=== PATIENT | female | born 1945 | race Caucasian/White ===

== ENCOUNTER 2019-08-23 13:30 | Outpatient (CLI) | payer OTHER, SELFPAY ==
--- NOTE | ~2019-08-23 | CT_ITS ---
EXAMINATION: CT lung screening DATE: 08/23/2019 14:25 INDICATION: Personal history of tobacco dependence, current smoker with 78 pack year history, history of left breast cancer TECHNIQUE: Computed tomography (CT) of the chest was performed without intravenous contrast. The dose -length product (DLP) was 65.09 mGy-cm. Automated exposure control and iterative reconstruction techn [employer] were employed. COMPARISON: None FINDINGS: There is mild emphysema. A few patchy nodular and airspace opacities of the right upper lob e are likely infectious or inflammatory. There is a 3 mm nodule of the left lower lobe on image 55. T here is a 10 mm subsolid nodule of the left upper lobe on image 57. There is no pleural effusion or p neumothorax. There are changes of left mastectomy. No pathologically enlarged thoracic lymph nodes ar e identified. The heart size is normal. There is calcified coronary artery atherosclerosis. A small s liding hiatal hernia is noted. There is severe thoracic spondylosis. IMPRESSION: 1. Lung-RADS category 2: Benign appearance or behavior. Continue annual screening with noncontrast lo w-dose chest CT in 12 months. Reviewed, dictated and finalized at location A. IMPRESSION: 1. Lung-RADS category 2: Benign appearance or behavior. Continue annual screeni ng with noncontrast low-dose chest CT in 12 months.
--- NOTE | ~2019-08-23 | US_ITS ---
EXAMINATION: US art doppler w press LE BI DATE: 08/23/2019 15:24 CDT INDICATION: Peripheral vascular disease. History of breast cancer. TECHNIQUE: Segmental pressures and plethysmographic and Doppler waveforms of the brachial and lower e xtremity arteries were obtained. COMPARISON: None. FINDINGS: Right and left brachial artery pressures of 158 mm Hg. Left arm blood pressure not performed due to h istory of breast cancer. The right high-thigh pressure index is 0.97 (normal > 1.2). The right ankle-brachial index (KRISTOFER) is 0 .83 (normal >= 0.9-1.0). The right great toe-brachial index (TBI) is 0.63 (normal >= 0.60). The right lower extremity segmental pressure gradients are slightly increased below the femoral artery (normal gradients <= 20-30 mmHg between adjacent levels on the same leg or the same levels on the two legs). Arterial Doppler waveforms are biphasic. The left high-thigh pressure index is 1.08. The left KRISTOFER is 0.89. The left TBI is 0.53. The left lowe r extremity segmental pressure gradients are normal. Arterial Doppler waveforms are biphasic. IMPRESSION: 1. Mildly decreased high thigh pressure index, ankle brachial indices and toe brachial indices, consi stent with mild inflow and peripheral arterial disease. Reviewed, dictated and finalized at location A. IMPRESSION: 1. Mildly decreased high thigh pressure index, ankle brachial indices and toe b rachial indices, consistent with mild inflow and peripheral arterial disease.
--- NOTE | ~2019-08-23 | MM_ITS ---
EXAMINATION: MM screening pito RT w nathan HISTORY: Screening right mammogram, history of left mastectomy TECHNIQUE: Craniocaudal and mediolateral oblique 3-D tomosynthesis images were obtained and synthetic 2-D images were generated. CAD analysis was submitted and interpreted. COMPARISON: No prior mammogram is available for comparison at this institution. BREAST PARENCHYMAL COMPOSITION: There are scattered areas of fibroglandular density. FINDINGS: A focal asymmetry is present in the middle third of the outer breast 8 cm from the nipple. IMPRESSION: 1. Right breast focal asymmetry. 2. Additional mammographic views and possible breast ultrasound are recommended. BI-RADS Category 0: Incomplete: Needs additional imaging evaluation. Reviewed, dictated and finalized at location A. IMPRESSION: 1. Right breast focal asymmetry. 2. Additional mammographic views and possible breast ultrasound are recommended . BI-RADS Category 0: Incomplete: Needs additional imaging evaluation.
[2019-08-23 14:58] LABS: Alanine Aminotransferase 13 U/L (4-35); Albumin Level 4.4 g/dL (3.5-5.1); Alkaline Phosphatase 110 U/L (38-126); Aspartate Amino Transferase 23 U/L (14-36); Bilirubin,Total 0.3 mg/dL (0.2-1.3); Blood Urea Nitrogen 12 mg/dL (7-17); Calcium 9.5 mg/dL (8.4-10.2); Carbon Dioxide 26 mmol/L (22-30); Chloride 105 mmol/L (98-107); Cholesterol 264 mg/dL (0-200); Estimated Glomerular Filt Rate > 60; Glucose 115 mg/dL (65-105); HDL Direct 73 mg/dL; Potassium 4.7 mmol/L (3.4-5.0); Sodium 138 mmol/L (137-145); Triglycerides 176 mg/dL (<150)
[2019-08-23 15:08] LABS: LDL Cholesterol Direct 133 mg/dL
== END 2019-08-23 13:31 | disposition home or self-care (01) ==
PROVIDERS: PCP Emergency Medicine; Visit Provider Emergency Medicine
DX: Z12.31 Encounter for screening mammogram for malignant neoplasm of breast (principal); R53.83 Other fatigue; E78.5 Hyperlipidemia, unspecified; I73.9 Peripheral vascular disease, unspecified; Z87.891 Personal history of nicotine dependence
CPT/HCPCS: 36415; 77063; 77067; 80053; 80061; 84443; 93923; G0297

== ENCOUNTER 2019-09-20 12:25 | Outpatient (CLI) | payer OTHER, SELFPAY ==
--- NOTE | ~2019-09-20 | MMUS_ITS ---
EXAMINATION: MM diagnostic mammo unilat RT, US breast RT limited HISTORY: Focal asymmetry in middle third of outer right breast 8 cm from nipple was reported on 2019 bilateral digital screening mammogram TECHNIQUE: Additional 3-D tomosynthesis images of the right breast were performed and synthetic 2-D i mages were generated. CAD analysis was submitted and interpreted. High resolution upper outer quadran t right breast ultrasound was performed. COMPARISON: 08/23/2019 bilateral digital screening mammogram FINDINGS: MAMMOGRAPHIC FINDINGS: No definite mass is evident. There are benign appearing calcifications. ULTRASOUND: There is no evidence of focal abnormal solid or cystic lesion or suspicious shadowing in the upper ou ter quadrant of the right breast. IMPRESSION: 1. No mammographic evidence of malignancy 2. Routine annual mammographic screening is recommended. BI-RADS Category 2: Benign finding(s). Reviewed, dictated and finalized at location A. IMPRESSION: 1. No mammographic evidence of malignancy 2. Routine annual mammographic screening is recommended. BI-RADS Category 2: Benign finding(s).
== END 2019-09-20 12:26 | disposition home or self-care (01) ==
PROVIDERS: PCP Emergency Medicine; Visit Provider Emergency Medicine
DX: N64.89 Other specified disorders of breast (principal)
CPT/HCPCS: 76642; 77065

== ENCOUNTER 2020-01-16 15:38 | Outpatient (CLI) | payer OTHER, SELFPAY ==
[2020-01-16 16:13] LABS: Alanine Aminotransferase 13 U/L (4-35); Albumin Level 4.3 g/dL (3.5-5.1); Alkaline Phosphatase 86 U/L (38-126); Anion Gap 7 mmol/L (8-16); Aspartate Amino Transferase 23 U/L (14-36); Bilirubin,Total 0.5 mg/dL (0.2-1.3); Blood Urea Nitrogen 14 mg/dL (7-17); Calcium 9.7 mg/dL (8.4-10.2); Carbon Dioxide 26 mmol/L (22-30); Chloride 103 mmol/L (98-107); Estimated Glomerular Filt Rate > 60; Glucose 116 mg/dL (65-105); Potassium 4.7 mmol/L (3.4-5.0); Sodium 136 mmol/L (137-145)
[2020-01-16 19:16] LABS: Hemoglobin A1C 5.5 % (<5.7)
== END 2020-01-16 15:39 | disposition home or self-care (01) ==
PROVIDERS: PCP Emergency Medicine; Visit Provider Emergency Medicine
DX: E78.2 Mixed hyperlipidemia (principal); E11.9 Type 2 diabetes mellitus without complications
CPT/HCPCS: 36415; 80053; 83036

== ENCOUNTER 2020-08-06 15:09 | Outpatient (CLI) | payer OTHER, SELFPAY ==
[2020-08-06 15:46] LABS: Alanine Aminotransferase 14 U/L (4-35); Albumin Level 4.1 g/dL (3.5-5.1); Alkaline Phosphatase 83 U/L (38-126); Anion Gap 3 mmol/L (8-16); Aspartate Amino Transferase 30 U/L (14-36); Bilirubin,Total 0.4 mg/dL (0.2-1.3); Blood Urea Nitrogen 13 mg/dL (7-17); Calcium 9.6 mg/dL (8.4-10.2); Carbon Dioxide 28 mmol/L (22-30); Chloride 105 mmol/L (98-107); Cholesterol 222 mg/dL (0-200); Estimated Glomerular Filt Rate > 60; Glucose 109 mg/dL (65-105); HDL Direct 77 mg/dL; Potassium 4.6 mmol/L (3.4-5.0); Sodium 136 mmol/L (137-145); Triglycerides 125 mg/dL (<150)
[2020-08-06 15:58] LABS: LDL Cholesterol Direct 96 mg/dL
[2020-08-06 17:00] LABS: Hemoglobin A1C 5.6 % (<5.7)
== END 2020-08-06 15:10 | disposition home or self-care (01) ==
PROVIDERS: PCP Emergency Medicine; Visit Provider Emergency Medicine
DX: E78.5 Hyperlipidemia, unspecified (principal); E11.9 Type 2 diabetes mellitus without complications
CPT/HCPCS: 36415; 80053; 80061; 83036

== ENCOUNTER 2021-09-03 13:10 | Outpatient (CLI) | payer OTHER, SELFPAY ==
--- NOTE | ~2021-09-03 | MM_ITS ---
EXAMINATION: MM screening pito BI w nathan HISTORY: Screening right mammogram, history of left mastectomy TECHNIQUE: Craniocaudal and mediolateral oblique 3-D tomosynthesis images were obtained and synthetic 2-D images were generated. CAD analysis was submitted and interpreted. COMPARISON: 08/31/2019, 08/23/2019 BREAST PARENCHYMAL COMPOSITION: There are scattered areas of fibroglandular density. FINDINGS: Architectural distortion in the outer right breast is stable and likely related to prior ex cisional biopsy. There is no suspicious mass, calcification, or architectural distortion to suggest m alignancy. There has been no suspicious interval change. IMPRESSION: 1. No mammographic evidence of malignancy. 2. Recommend routine screening mammography in one year. BI-RADS Category 2: Benign finding(s). Reviewed, dictated and finalized at location A.
[2021-09-03 13:48] LABS: Alanine Aminotransferase 16 U/L (6-35); Albumin Level 4.2 g/dL (3.5-5.1); Alkaline Phosphatase 97 U/L (38-126); Anion Gap 3 mmol/L (8-16); Aspartate Amino Transferase 29 U/L (14-36); Bilirubin,Total 0.3 mg/dL (0.2-1.3); Blood Urea Nitrogen 9 mg/dL (7-17); Calcium 9.1 mg/dL (8.4-10.2); Carbon Dioxide 29 mmol/L (22-30); Chloride 102 mmol/L (98-107); Cholesterol 228 mg/dL (0-200); Estimated Glomerular Filt Rate > 60; Glucose 115 mg/dL (65-110); HDL Direct 66 mg/dL; Potassium 4.6 mmol/L (3.4-5.0); Sodium 134 mmol/L (137-145); Triglycerides 207 mg/dL (<150)
[2021-09-03 13:59] LABS: LDL Cholesterol Direct 83 mg/dL
[2021-09-03 14:30] LABS: Vitamin D 25 Hydroxy 16.2 ng/mL
[2021-09-03 14:56] LABS: Hemoglobin A1C 5.5 % (<5.7)
== END 2021-09-03 13:11 | disposition home or self-care (01) ==
PROVIDERS: PCP Emergency Medicine; Visit Provider Emergency Medicine
DX: Z12.31 Encounter for screening mammogram for malignant neoplasm of breast (principal); Z13.220 Encounter for screening for lipoid disorders; E55.9 Vitamin D deficiency, unspecified; R73.9 Hyperglycemia, unspecified; E78.5 Hyperlipidemia, unspecified
CPT/HCPCS: 36415; 77063; 77067; 80053; 80061; 82306; 83036

== ENCOUNTER 2021-12-03 12:48 | Outpatient (CLI) | payer OTHER, SELFPAY ==
--- NOTE | ~2021-12-03 | CT_ITS ---
EXAMINATION: CT abdomen pelvis wo con DATE: 12/03/2021 13:18 INDICATION: Unspecified abdominal pain TECHNIQUE: Computed tomography (CT) of the abdomen and pelvis was performed without intravenous contr ast. The dose-length product (DLP) was 290.83 mGy-cm. Automated exposure control and iterative recons truction technique were employed. COMPARISON: None FINDINGS: Minimal dependent atelectasis is present in the lung bases. The heart size is normal. There is an 8 mm cyst in the left hepatic lobe. The spleen, pancreas, gallbladder, and right adrenal gland are normal. There is a 1.8 cm adenoma of the left adrenal gland. The kidneys are unremarkable. There is calcified atherosclerosis of the aorta and many of the other arteries. No pathologically enlarged abdominal or pelvic lymph nodes are identified. There is no free intraperitoneal gas or evidence of bowel obstruction. The appendix is normal. There is moderate lumbar spondylosis. There is a tiny midl ine epigastric hernia containing fat. There is also a tiny umbilical hernia containing fat. IMPRESSION: 1. Small epigastric and umbilical hernias containing fat. Reviewed, dictated and finalized at location B.
== END 2021-12-03 12:49 | disposition home or self-care (01) ==
PROVIDERS: PCP Emergency Medicine; Visit Provider Emergency Medicine
DX: R10.9 Unspecified abdominal pain (principal); K42.9 Umbilical hernia without obstruction or gangrene
CPT/HCPCS: 74176

== ENCOUNTER 2022-03-11 11:51 | Outpatient (CLI) | payer OTHER, SELFPAY ==
--- NOTE | ~2022-03-11 | DEXA_ITS ---
Bone Density Report Name: ANSON MILLER Age: 76 Sex: Female Ethnicity: White Date of : 1945 Indication: postmenopausal; screening for osteoporosis; height loss; cancer; Referring Provider: JULIOCESAR NOONAN Study: Bone densitometry was performed. Exam Date: March 11, 2022 Accession number: [id number] Bone Density: Region BMD T-score Z-score Classification AP Spine(L1-L4) 0.742 -2.8 -0.3 Osteoporosis Femoral Neck (Left) 0.513 -3.0 -0.9 Osteoporosis Total Hip (Left) 0.696 -2.0 -0.2 Osteopenia Femoral Neck (Right) 0.470 -3.4 -1.3 Osteoporosis Total Hip (Right) 0.658 -2.3 -0.5 Osteopenia Total Hip Mean 0.677 -2.2 -0.4 Osteopenia World Health Organization criteria for BMD impression classify patients as: Normal (T-score at or above -1.0), Osteopenia (T-score between -1.0 and -2.5), or Osteoporosis (T-score at or below -2.5). 10-year Fracture Risk: FRAX not reported because: Some T-score for Spine Total or Hip Total or Femoral Neck at or below -2.5 Clinical Information Provided by Patient: Smokes Has 3 or more alcoholic drinks per day Has used the following medications: Vitamin D Has the following medical conditions: Cancer Patient maximum height was 61.5 Menopause Age: 49 No regular weight bearing exercise Onset of menses at age 14 Number of children 3 Impression: The patient has osteoporosis, based on the Right Femoral Neck T-score. The patient has risk factors, including: smoking, excessive alcohol use. Discussion: INCREASED RISK OF FRACTURE. BONE DENSITY IS UNDESIRABLY LOW AT ONE OR MORE SKELETAL SITES, CONSISTENT WITH POSTMENOPAUSAL OSTEOPOROSIS. This patient's lowest T-score meets the World Health Organization's (WHO) criteria for osteoporosis at one or more sites (T-score -2.5 or below). In untreated patients, the risk of osteoporotic fracture increases approximately two-fold for each 1.0 SD decrease in T-score. Low bone density is not the only risk factor for fracture; also consider factors such as patient's age, frailty or poor health, risk of falling, risk of injury, previous osteoporotic fracture, family history of osteoporosis, cigarette smoking, low body weight, etc. Not everyone with low bone mineral density has osteoporosis; osteomalacia and other metabolic bone disorders should also be considered. Patients who have osteoporosis should be evaluated for specific diseases and conditions (secondary causes) that may cause or contribute to bone loss. The [place] [employer]ocrin[employer] (AACE) and National Osteoporosis Foundation (NOF) recommend pharmacologic intervention for all postmenopausal women whose T-score is in this range. The patient should follow a healthful lifestyle (good nutrition with adequate calcium and vitamin D, and appropriate weight-bearing e
== END 2022-03-11 11:52 | disposition home or self-care (01) ==
PROVIDERS: PCP Emergency Medicine; Visit Provider Emergency Medicine
DX: Z78.0 Asymptomatic menopausal state (principal); M81.0 Age-related osteoporosis without current pathological fracture; M85.852 Other specified disorders of bone density and structure, left thigh; M85.851 Other specified disorders of bone density and structure, right thigh
CPT/HCPCS: 77080

== ENCOUNTER 2023-03-03 11:41 | Outpatient (CLI) | payer OTHER, SELFPAY ==
[2023-03-03 12:14] LABS: Alanine Aminotransferase 14 U/L (6-35); Albumin Level 4.3 g/dL (3.5-5.1); Alkaline Phosphatase 109 U/L (38-126); Anion Gap 5 mmol/L (8-16); Aspartate Amino Transferase 27 U/L (14-36); Bilirubin,Total 0.7 mg/dL (0.2-1.3); Blood Urea Nitrogen 11 mg/dL (7-17); Calcium 9.4 mg/dL (8.4-10.2); Carbon Dioxide 27 mmol/L (22-30); Chloride 104 mmol/L (98-107); Cholesterol 219 mg/dL (0-200); Estimated Glomerular Filt Rate > 60; Glucose 107 mg/dL (65-110); HDL Direct 70 mg/dL; Potassium 4.5 mmol/L (3.4-5.0); Sodium 136 mmol/L (137-145); Triglycerides 143 mg/dL (<150)
[2023-03-03 12:25] LABS: LDL Cholesterol Direct 93 mg/dL
== END 2023-03-03 11:42 | disposition home or self-care (01) ==
LOC: ANHLAB 11:44
PROVIDERS: PCP Emergency Medicine; Visit Provider Emergency Medicine
DX: E78.5 Hyperlipidemia, unspecified (principal)
CPT/HCPCS: 36415; 80053; 80061

== ENCOUNTER 2023-07-21 13:26 | Outpatient (CLI) | payer OTHER, SELFPAY ==
--- NOTE | ~2023-07-21 | MM_ITS ---
EXAMINATION: MM screening pito RT w nathan HISTORY: Screening mammogram TECHNIQUE: Craniocaudal and mediolateral oblique 3-D tomosynthesis images were obtained and synthetic 2-D images were generated. CAD analysis was submitted and interpreted. COMPARISON: 09/03/2021) screening mammogram 09/20/2019 diagnostic right mammogram and Limited right breast ultrasound 08/23/2019) screening mammogram BREAST PARENCHYMAL COMPOSITION: There are scattered areas of fibroglandular density. FINDINGS: History of left mastectomy in 1993. Scattered microcalcifications. There is focal irregular increased density in the outer mid upper right breast. Diagnostic right mammogram and right breast u ltrasound examination are recommended.. IMPRESSION: 1. Status post left mastectomy for breast cancer. Irregular increased density in the upper outer righ t breast 2. Diagnostic right mammogram and right breast ultrasound examination recommended BI-RADS Category 0: Incomplete: Needs additional imaging evaluation. Reviewed, dictated and finalized at location A. IMPRESSION: 1. Status post left mastectomy for breast cancer. Irregular increased density i n the upper outer right breast 2. Diagnostic right mammogram and right breast ultrasound examination recommend ed BI-RADS Category 0: Incomplete: Needs additional imaging evaluation.
== END 2023-07-21 13:27 | disposition home or self-care (01) ==
LOC: ANHIMG 13:27
PROVIDERS: PCP Emergency Medicine; Visit Provider Emergency Medicine
DX: Z12.31 Encounter for screening mammogram for malignant neoplasm of breast (principal); R92.8 Other abnormal and inconclusive findings on diagnostic imaging of breast
CPT/HCPCS: 77063; 77067

== ENCOUNTER 2023-08-16 12:46 | Outpatient (CLI) | payer OTHER, SELFPAY ==
--- NOTE | ~2023-08-16 | MMUS_ITS ---
EXAMINATION: MM diagnostic pito RT w nathan, US breast RT limited HISTORY: Follow-up architectural distortion of the right breast TECHNIQUE: Additional 3-D tomosynthesis images of the right breast were performed and synthetic 2-D i mages were generated. CAD analysis was submitted and interpreted. High resolution Limited right breas t ultrasound was performed. COMPARISON: Comparison to multiple prior studies sequentially, with oldest reviewed study dated 08/22. BREAST PARENCHYMAL COMPOSITION: Not dense: There are scattered areas of fibroglandular density. FINDINGS: MAMMOGRAPHIC FINDINGS: There is focal architectural distortion with developing clustered indeterminate calcifications associ ated with the area of asymmetry. This is located in the mid outer aspect of the right breast. ULTRASOUND: Limited right breast ultrasound: At 9:00, 8 cm from the nipple there is an irregular shaped ill-defin ed 7 mm mass with posterior shadowing. No internal vascularity. IMPRESSION: 1. Ill-defined irregular shaped 7 mm hypoechoic mass of the right breast at 9:00, 8 cm from the nippl e, likely corresponding to the architectural distortion seen on mammography. 2. Ultrasound-guided right breast biopsy recommended. BI-RADS category 4, suspicious findings. Reviewed, dictated and finalized at location A. IMPRESSION: 1. Ill-defined irregular shaped 7 mm hypoechoic mass of the right breast at 9:0 0, 8 cm from the nipple, likely corresponding to the architectural distortion s een on mammography. 2. Ultrasound-guided right breast biopsy recommended. BI-RADS category 4, suspicious findings.
== END 2023-08-16 12:47 | disposition home or self-care (01) ==
LOC: ANHIMG 12:51
PROVIDERS: PCP Emergency Medicine; Visit Provider Emergency Medicine
DX: R92.8 Other abnormal and inconclusive findings on diagnostic imaging of breast (principal); R10.11 Right upper quadrant pain
CPT/HCPCS: 76642; 77061; 77065; G0279

== ENCOUNTER 2023-09-06 09:40 | Outpatient (CLI) | payer OTHER, SELFPAY ==
--- NOTE | ~2023-09-06 | MMUS_ITS ---
US breast biopsy RT w image, MM post biopsy diagnostic RT EXAMINATION: US GUIDED NEEDLE BIOPSY WITH VACUUM ASSISTANCE DATE: 09/06/2023 11:41 CDT INDICATION: Right breast mass seen on recent examination. Ultrasound-guided core biopsy is requested to evaluate for malignancy. TECHNIQUE AND FINDINGS: The risks and potential benefits of the procedure were discussed with the patient, and written inform ed consent was obtained. After sterile preparation of the right breast, 1% lidocaine was utilized fo r local anesthesia. 1% lidocaine with epinephrine was used for deep anesthesia. A 10G vacuum-assisted biopsy gun needle was advanced through to the outer edge of the region of inter est from a lateral approach utilizing sonographic guidance. A total of 5 tissue core samples were ob tained through the lesion. An Inrad tissue marker clip was then placed at the biopsy site. Hemostasi s was achieved. The patient tolerated procedure well and there was no evidence of immediate complication. The patien t was given verbal instructions partly is from the department. Right breast mammograms to document t issue marker clip placement. The tissue samples were submitted to surgical pathology for histologic a nalysis. IMPRESSION: 1. Successful ultrasound-guided vacuum-assisted biopsy of right breast mass with tissue marker place ment. Please refer to pathology report for histologic analysis. Reviewed, dictated and finalized at location B. IMPRESSION: 1. Successful ultrasound-guided vacuum-assisted biopsy of right breast mass wi th tissue marker placement. Please refer to pathology report for histologic shawn lysis.
== END 2023-09-06 09:41 | disposition home or self-care (01) ==
PROVIDERS: PCP Emergency Medicine; Visit Provider Surgery
DX: R92.8 Other abnormal and inconclusive findings on diagnostic imaging of breast (principal); N63.10 Unspecified lump in the right breast, unspecified quadrant; Z85.3 Personal history of malignant neoplasm of breast; C50.911 Malignant neoplasm of unspecified site of right female breast
CPT/HCPCS: 19083; 77065; 88305; 88360; 88365; A4648

== ENCOUNTER 2023-09-15 12:14 | Outpatient (CLI) | payer OTHER, SELFPAY ==
--- NOTE | ~2023-09-15 | US_ITS ---
US breast LT complete 09/15/2023 13:11 Indication: History of left mastectomy for malignant neoplasm. Procedure: High-resolution Limited ultrasound of the left chest wall and axilla Comparison: Screening mammogram dated 09/03/2021 Findings: Along the left lateral chest there is a small oval hypoechoic structure without internal va scularity or posterior features measuring 6 mm, likely benign. No other masses are identified. Impression: 1: Oval hypoechoic parallel oriented 6 mm mass left lateral chest wall, likely benign. Follow-up ultr asound in 6 months recommended. BI-RADS CATEGORY 3-PROBABLY BENIGN FINDING RECOMMENDATION: 6 month follow-up Limited left chest wall ultrasound. Reviewed, dictated and finalized at location B. Impression: 1: Oval hypoechoic parallel oriented 6 mm mass left lateral chest wall, likely benign. Follow-up ultrasound in 6 months recommended. BI-RADS CATEGORY 3-PROBABLY BENIGN FINDING RECOMMENDATION: 6 month follow-up Limited left chest wall ultrasound.
== END 2023-09-15 12:15 | disposition home or self-care (01) ==
LOC: ANHIMG 12:15
PROVIDERS: PCP Emergency Medicine; Visit Provider Surgery
DX: Z85.3 Personal history of malignant neoplasm of breast (principal); R92.8 Other abnormal and inconclusive findings on diagnostic imaging of breast
CPT/HCPCS: 76641

== ENCOUNTER 2023-09-21 11:39 | Outpatient (CLI) | payer OTHER, SELFPAY ==
[2023-09-21 12:18] LABS: Alanine Aminotransferase 14 U/L (6-35); Albumin Level 4.5 g/dL (3.5-5.1); Alkaline Phosphatase 88 U/L (38-126); Anion Gap 3 mmol/L (4-12); Aspartate Amino Transferase 23 U/L (14-36); Bilirubin,Total 0.5 mg/dL (0.2-1.3); Blood Urea Nitrogen 13 mg/dL (7-17); Calcium 9.8 mg/dL (8.4-10.2); Carbon Dioxide 28 mmol/L (22-30); Chloride 105 mmol/L (98-107); Estimated Glomerular Filt Rate > 60; Glucose 110 mg/dL (65-110); Potassium 5.3 mmol/L (3.4-5.0); Sodium 136 mmol/L (137-145)
[2023-09-21 12:58] LABS: Vitamin D 25 Hydroxy 53.7 ng/mL
== END 2023-09-21 11:40 | disposition home or self-care (01) ==
LOC: ANHLAB 11:41
PROVIDERS: PCP Emergency Medicine; Visit Provider Emergency Medicine
DX: E55.9 Vitamin D deficiency, unspecified (principal); E78.5 Hyperlipidemia, unspecified
CPT/HCPCS: 36415; 80053; 82306

== ENCOUNTER 2023-09-21 14:16 | Outpatient (CLI) | payer OTHER, SELFPAY ==
[2023-09-21 14:33] LABS: Kit Draw Collected
== END 2023-09-21 14:17 | disposition home or self-care (01) ==
PROVIDERS: PCP Emergency Medicine; Visit Provider Internal Medicine Hematology & Oncology
DX: C50.111 Malignant neoplasm of central portion of right female breast (principal); Z17.0 Estrogen receptor positive status [ER+]
CPT/HCPCS: 36415

== ENCOUNTER 2023-09-26 10:19 | Outpatient (CLI) | payer OTHER, SELFPAY ==
[2023-09-26 10:59] LABS: Potassium 5.4 mmol/L (3.4-5.0)
== END 2023-09-26 10:20 | disposition home or self-care (01) ==
LOC: ANHLAB 10:22
PROVIDERS: PCP Emergency Medicine; Visit Provider Emergency Medicine
DX: E87.5 Hyperkalemia (principal)
CPT/HCPCS: 36415; 84132

== ENCOUNTER 2023-10-31 11:20 | Outpatient (CLI) | payer OTHER, SELFPAY ==
--- NOTE | 2023-10-31 11:37 | ECG_ITS ---
Test Date: 2023-10-31 11:49:57 Measurements Intervals [place] Rate: 65 P: 38 NV: 161 QRS: -17 QRSD: 65 T: 18 QT: 399 QTc: 415 Interpretive Statements SINUS RHYTHM INCOMPLETE RIGHT BUNDLE BRANCH BLOCK MODERATE T-WAVE ABNORMALITY, CONSIDER ANTERIOR ISCHEMIA [-0.1+ mV T WAVE IN V3/V4] WARNING: DATA QUALITY MAY AFFECT INTERPRETATION No previous ECG available for comparison Electronically Signed On 10-31-2023 14:51:32 CDT by Noel Nguyen M.D.
== END 2023-10-31 11:21 | disposition home or self-care (01) ==
PROVIDERS: PCP Emergency Medicine; Visit Provider Surgery
DX: C50.911 Malignant neoplasm of unspecified site of right female breast (principal); Z01.818 Encounter for other preprocedural examination; I45.10 Unspecified right bundle-branch block
CPT/HCPCS: 36415; 86850; 86900; 86901; 93005

== ENCOUNTER 2023-11-01 02:09 | Day surgery (SDC) | payer OTHER, SELFPAY ==
[2023-10-30 15:21] VITALS: BMI 29.9
--- NOTE | 2023-10-30 15:34 | PC.NURSE ---
Report to the Outpatient Waiting Room, entrance under the green pavilion located off [facility], at time _0700_ on date _[id number]_. Planned Procedure Time: _0900_. Time changes happen often and if your time is changed the preop area will call you the afternoon before. - You and your visitor will be asked to self-screen and do not enter if you have any COVID symptoms. - A mask is optional within the hospital at this time. Patients may have clear liquids (water, carbonated beverages, clear teas, apple juice) until 3 hours prior to surgery with a maximum of 20 ounces. - No food from midnight until time of surgery Take the following medications with a SIP of water the morning of surgery: ____None DO NOT STOP ANY OF YOUR OTHER PRESCRIPTION MEDICATIONS PRIOR TO SURGERY ?EXCEPT THE FOLLOWING Medications to discontinue per physician Vitamin D3 Date to take last dose__Stop now. Please no make-up, nail cook islander, hairspray, perfume, deodorant, or body powder the day of surgery. No jewelry (including any body piercings) or valuables the day of surgery, leave them at home. Please take a shower or bath the night before, or the morning of, surgery with an antibacterial soap. Wear comfortable, loose fitting clothing. - Jewelry must be removed prior to entering the operating room. Rings and piercings that are not removed may be cut off. - The hospital will not accept responsibility for valuables. - Please leave all valuables, including medications, at home the day of surgery. If you are going home after surgery, a licensed transport truck driver must drive you home. - NO public transportation without another adult if you receive anesthesia. - We recommend that an adult stay with you for 24 hours following discharge. - We also recommend that you do not drive, make important decision, drink alcoholic beverages, or take any drugs that were not prescribed by your health care provider for at least 24 hours after your discharge time. Follow any additional instructions given to you from your surgeon. If you or anyone in your household have experienced Covid symptoms in the past week, please notify your surgeon or the nurse liaison at the phone number below for possible testing. Telephone instructions given to __Rosa___and asked if any additional questions and then verbalized understanding. Patient advised to call surgeon office or pre surgery nurse liaison [phone] if any additional questions.
[2023-11-01] VITALS (9 sets, daily range): BP systolic 104–151; BP diastolic 46–86; PULSE 56–81; RESP 16–20; TEMP 36–36.9; O2SAT 96–100
[2023-11-01] MEDS: LIDOCAINE/PRILOCAINE CREAM 2.5-2.5% TUBE 1 EACH TOPICAL (07:15)
[2023-11-01] MEDS: ACETAMINOPHEN 500 MG TABLET 1000 MG PO (07:16)
[2023-11-01] MEDS: LACTATED RINGERS 1,000 ML 30 ML IV CONT ×2 (07:40→11:30)
--- NOTE | 2023-11-01 08:04 | P.HPUP_ITS ---
History and Physical Update Update Date/Time: 11/01/23 08:04 - Right total mastectomy, right sentinel lymph no biopsy with Lymphoseek, possible injection of methylene blue for sentinel lymph node mapping, and possible adjacent tissue transfer History and Physical has been reviewed, including an updated exam of the patient. There are NO changes in the patient's condition. Risks, benefits, and alternatives have been discussed and questions answered. Garett roman agrees to proceed with procedure.
--- NOTE | 2023-11-01 08:52 | WPDANESEPPF ---
Anes - Initial Pre Proc Eval Procedure: Operation Date: 11/01/23 09:00 Proposed Procedures p Right Total Mastectomy, Right [place] Lymph Node Biopsy with Lymphoseek, Possible Methylene Blue Injection for [place] Node Mapping, Possible Adjacent Tissue Transfer - Marisa Lemus MD Date/Time: 11/01/23 08:52 Surgeon: Marisa Lemus MD Pre Op Diagnosis: right breast CA Patient Data Age: 78 Gender: F Height: 1.45 m Weight: 62.7 kg Allergies Allergy/AdvReac Type Severity Reaction Status Date / Time No Known Allergies Allergy Verified 11/01/23 07:10 Home Medications Medication Instructions Recorded Confirmed Type cholecalciferol (vitamin D3) 125 125 mcg PO DAILY 10/30/23 11/01/23 History mcg (5,000 unit) tablet (Vitamin D3) multivitamin 1 tablet PO DAILY 11/01/23 11/01/23 History Patient hx anesthesia problems: none Family hx anesthesia problems: none Results Review: All pre-operative results and documents have been reviewed as part of the pre-operative evaluation. [facility] Past Medical History Medical History Arthritis FH: Villafuerte's cyst FH: mastectomy Lack of bladder control Surgical History Surgical History H/O total hysterectomy (~1994) Family History Family History Father , 61 Cirrhosis Mother , 71 Leukemia Sibling , 66 Brain cancer Sibling , 68 Lung disease Social History Social History Smoking packs per day: 1.5 Smoking cigarettes per day: 30.0 Years smoked: 45 Smoking pack-years: 67.50 Smoking status: Former smoker Tobacco type: cigarettes Second hand tobacco smoke exposure: Yes Smoking end date: 09/29/23 Alcohol intake: current Drinks per week: 21 Alcohol use details: 2-3 Beers per night Substance use: never Substance use type: does not use Do You Feel Safe in your Home?: Yes Lack of Transportation: No Lack of Food: Never True Current Housing: I Have Housing Concerned About Future Housing: No Difficulty Paying Gas/Electric Bills: No Difficulty Paying for Meds: No Currently Unemployed: No Education: High School Diploma/GED Difficulty w/ Childcare or Family Care: No Living arrangements: alone Gender identity (if verbalized by the patient): Female Spiritual care concerns: No Anes - Eval Final PreProcedure Day of Procedure 11/01/23 08:52 Patient weight: overweight Heart: regular rate and rhythm Lungs: clear to auscultation Airway: Mallampati scale class II Neurological: alert and oriented Last oral intake: >/= 8 hours ASA classification: III Emergent: no Anesthetic plan: proceed Anesthesia type and monitoring: general ETT and standard monitoring Results Review: All pre-operative results and documents have been reviewed as part of the pre-operative evaluation. Informed Consent: The patient's anesthetic plan and its attendant risks and benefits were discussed with the patient/family/POA. Questions were solicited and answers provided to the satisfaction of the patient/family/POA.
--- NOTE | 2023-11-01 08:54 | SUR.PREOP ---
0815-pt to [place] 0840-Pt returned from [place]
[2023-11-01] MEDS: BUPIVACAINE/EPINEPHRINE 0.5% 50 ML VIAL 40 ML INFILTRATE (08:57)
[2023-11-01] MEDS: ceFAZolin 2 GM/D5W 50 ML 2 GM/50 ML BAG IVPB (08:57)
[2023-11-01] MEDS: METHYLENE BLUE 0.5% INJ 10 ML AMPULE 2 ML XX (09:20)
--- NOTE | 2023-11-01 11:18 | W.PM.PROC2 ---
Procedure Note - Detailed Date of Procedure 11/01/23 Pre-op Diagnosis Right breast invasive ductal carcinoma Post-op Diagnosis Same Procedure Performed 1. Right total mastectomy 2. Right sentinel lymph node biopsy 3. Methylene blue injection for dual tracing and sentinel lymph node mapping 4. Adjacent tissue transfer 8cm x 30cm for aesthetic flat closure (total area 240 cm2) Surgeon Marisa Lemus MD Night Auditor Kell Cabral PA-C Anesthesia General Indications 78-year-old female with a previous history of left breast cancer, status post left modified radical mastectomy in 1993 who now presents with newly diagnosed right breast invasive ductal carcinoma, ER positive, OH positive, HER2 negative by FISH, Ki 67 10%. While initially patient was leaning towards lumpectomy, after discussing her options in further details and more consideration, patient has decided to proceed with a total mastectomy as she does not want adjuvant radiation. Patient also a higher risk of recurrence given the previous history of breast cancers well as significant family history and I would not recommend a lumpectomy if she is adamant about not having radiation. As such, the patient again has elected to proceed with a total mastectomy for surgical management of her right breast cancer. I also discussed sentinel lymph node biopsy to be performed at the same time of mastectomy for staging of the right axilla. Risks of the surgery were discussed with the patient which included but not limited to risk of bleeding, infection, positive margins, wound healing problems, recurrence, possible need for additional procedures in the future, scar, pain, asymmetry as well as the risk of anesthesia. All questions were answered patient agreed to proceed. Description of Procedure Patient was identified in the preoperative holding area brought to the operating room suite.? She was placed supine operating table sequential compression devices were applied. General anesthesia was induced without difficulty. Patient underwent lymphoseek injection in Nuclear Med for sentinel lymph node mapping prior to presenting to pre-op area. I also injected 2 cc of diluted methylene blue 50:50 in the subdermal plane of the periareola area. Right chest and right axillary areas were prepped draped in sterile fashion.? Attention was then turned to the right axilla.? The sentimag probe was used to find the area of highest radio activity in the right axilla, and an incision was made overlying this area that was incorporated into the mastectomy incision.? Dissection was carried down through the subcutaneous tissue and the clavipectoral fascia was incised.? I was able to identify a node that was hot and blue.? This was gently grasped and excised using the LigaSure device.? The Neoprobe was used to obtain account which was approximately 1841.? This was sent to pathology as a permanent specimen.? The Neoprobe was again used to scan the axilla trying to identify another node that was at least 10% of the original sentinel lymph node count. No other node was found and the axilla was irrigated and hemostasis was assured. An elliptical incision was made around the right nipple areola area, and care was taken to ensure the future mastectomy incision incorporated the axillary incision as well.? Dissection was carried down to the subcutaneous tissue until the thin areolar tissue plane was encountered.? This was then dissected superiorly to the inferior aspect of the clavicle, medially to the lateral aspect of the sternum, laterally to the latissimus dorsi, and inferiorly to the inframammary fold.? The breast along with the pectoralis fascia was then dissected off the pectoralis muscle and the specimen was oriented with a short stitch superiorly and long stitch laterally, and sent to pathology as the fresh specimen.? Hemostasis was assured.? One 10Fr flat drains were placed above the pectoralis muscle and secured to the skin with silk suture.
[2023-11-01] MEDS: LACTATED RINGERS 1,000 ML 100 ML IV CONT (13:22)
[2023-11-01] MEDS: ACETAMINOPHEN 325 MG TABLET 650 MG PO ×2 (13:22→19:32)
--- NOTE | 2023-11-01 15:23 | OBPPTRN ---
1230 Patient transferred to post room #289 via stretcher. Oriented to unit, room, information board, admission packet and security measures. Patient verbalizes understanding.
--- NOTE | 2023-11-01 18:58 | PC.NURSE ---
[address] [facility] to see if they could send the prescription to the [facility]. They stated no but they will cancel the perception so that the doctor can send it again to the other [facility]. [address] Lemus to forward this info to her. No answer. 1633 Called COURTNEY at Doctor s office. She stated she will get this info to Dr. Lemus.
--- NOTE | 2023-11-01 19:03 | PC.NURSE ---
2219 Called the anesthesia extension. Asked for the eye drops to help with the irritated itchy eyes of this surgical pt. She stated to go ahead. She was in the OR. Order was placed.
[2023-11-01] MEDS: DOCUSATE SODIUM 100 MG CAPSULE PO (19:32)
[2023-11-02] MEDS: ACETAMINOPHEN 325 MG TABLET 650 MG PO ×2 (01:38→08:28)
[2023-11-02 04:59] VITALS: BP 135/58; PULSE 69; RESP 16; TEMP 37.6
[2023-11-02 07:40] VITALS: BP 123/49; PULSE 69; RESP 16; TEMP 37.3; O2SAT 100
[2023-11-02] MEDS: CHOLECALCIFEROL 5,000 UNITS TABLET 5000 UNITS PO (08:28)
[2023-11-02] MEDS: DOCUSATE SODIUM 100 MG CAPSULE PO (08:28)
[2023-11-02] MEDS: MULTIVITAMINS THERAPEUTIC TAB (*BKC) 1 TABLET PO (08:30)
--- NOTE | 2023-11-02 09:44 | WPDANESPN ---
Anes - Prog Note Post-Op Date/Time: 11/02/23 09:44 Cardiovascular status: normal Respiratory status: normal Airway patency: baseline Mental status: baseline Post-Op hydration status: normal Vital Signs: Last Vital Signs Temp 99.1 F 11/02/23 07:40 Pulse 69 11/02/23 07:40 Resp 16 11/02/23 07:40 BP 123/49 L 11/02/23 07:40 Pulse Ox 100 11/02/23 07:40 O2 Del Method Room Air 11/01/23 15:55 O2 Flow Rate 8 11/01/23 11:45 Pain Score (VAS): 2 I/O: Intake & Output 11/01/23 11/02/23 11/02/23 23:59 07:59 15:59 Output Total 420 15 Balance -420 -15 Post-procedural complaints: none Patient Feedback: Patient satisfied with anesthetic care.
== END 2023-11-02 11:00 | disposition home or self-care (01) ==
LOC: ANHSURGERY 07:55 → ANHOB2 13:14
PROVIDERS: PCP Emergency Medicine; Visit Provider Surgery
PROC: (CPT 19303; principal; 2023-11-01 09:00)
DX: C50.911 Malignant neoplasm of unspecified site of right female breast (principal); Z17.0 Estrogen receptor positive status [ER+]; Z87.891 Personal history of nicotine dependence
CPT/HCPCS: 19303; 14301; 14302 ×6; 38525; 38900; 36415; 86850; 86900; 86901; 88305; 88307; 93005; 99199; A9270; J0690; J1100; J2405; J2704; J3010; J7120; Q9968

== ENCOUNTER 2023-12-12 13:10 | Outpatient (CLI) | payer OTHER, SELFPAY ==
--- NOTE | ~2023-12-12 | DEXA_ITS ---
Bone Density Report Name: ANSON MILLER Age: 78 Sex: Female Ethnicity: White Date of : 1945 Indication: postmenopausal; screening for osteoporosis; height loss; cancer; hysterectomy; Referring Provider: JULIOCESAR NOONAN Study: Bone densitometry was performed. Exam Date: December 12, 2023 Accession number: [id number] Bone Density: Region BMD T-score Z-score Classification AP Spine(L1-L4) 0.771 -2.5 0.0 Osteoporosis Femoral Neck (Left) 0.531 -2.9 -0.7 Osteoporosis Total Hip (Left) 0.794 -1.2 0.7 Osteopenia Femoral Neck (Right) 0.517 -3.0 -0.8 Osteoporosis Total Hip (Right) 0.675 -2.2 -0.3 Osteopenia Total Hip Mean 0.734 -1.7 0.2 Osteopenia World Health Organization criteria for BMD impression classify patients as: Normal (T-score at or above -1.0), Osteopenia (T-score between -1.0 and -2.5), or Osteoporosis (T-score at or below -2.5). 10-year Fracture Risk: FRAX not reported because: Some T-score for Spine Total or Hip Total or Femoral Neck at or below -2.5 Clinical Information Provided by Patient: Smokes Has 3 or more alcoholic drinks per day Has used the following medications: Vitamin D Has the following medical conditions: Cancer, Hysterectomy Patient maximum height was 61.5 Menopause Age: 49 No regular weight bearing exercise Onset of menses at age 14 Number of children 3 Impression: The patient has osteoporosis, based on the Right Femoral Neck T-score. The patient has risk factors, including: smoking, excessive alcohol use. Discussion: INCREASED RISK OF FRACTURE. BONE DENSITY IS UNDESIRABLY LOW AT ONE OR MORE SKELETAL SITES, CONSISTENT WITH POSTMENOPAUSAL OSTEOPOROSIS. This patient's lowest T-score meets the World Health Organization's (WHO) criteria for osteoporosis at one or more sites (T-score -2.5 or below). In untreated patients, the risk of osteoporotic fracture increases approximately two-fold for each 1.0 SD decrease in T-score. Low bone density is not the only risk factor for fracture; also consider factors such as patient's age, frailty or poor health, risk of falling, risk of injury, previous osteoporotic fracture, family history of osteoporosis, cigarette smoking, low body weight, etc. Not everyone with low bone mineral density has osteoporosis; osteomalacia and other metabolic bone disorders should also be considered. Patients who have osteoporosis should be evaluated for specific diseases and conditions (secondary causes) that may cause or contribute to bone loss. The [place] Association [employer] Clinical Endocrinologists (AACE) and National Osteoporosis Foundation (NOF) recommend pharmacologic intervention for all postmenopausal women whose T-score is in this range. The patient should follow a healthful lifestyle (good nutrition with adequate calcium and vitamin D, and
== END 2023-12-12 13:11 | disposition home or self-care (01) ==
LOC: ANHIMG 13:11
PROVIDERS: PCP Emergency Medicine; Visit Provider Emergency Medicine
DX: Z78.0 Asymptomatic menopausal state (principal); C50.911 Malignant neoplasm of unspecified site of right female breast; N95.9 Unspecified menopausal and perimenopausal disorder; M81.0 Age-related osteoporosis without current pathological fracture; M85.852 Other specified disorders of bone density and structure, left thigh; M85.851 Other specified disorders of bone density and structure, right thigh
CPT/HCPCS: 77080

== ENCOUNTER 2023-12-13 02:18 | Day surgery (SDC) | payer OTHER, SELFPAY ==
[2023-12-07 11:30] VITALS: BMI 29.0
--- NOTE | 2023-12-07 11:51 | PC.NURSE ---
Report to the Outpatient Waiting Room, entrance under the green pavilion located off [facility], at time _10:30AM_ on date _12/13/23_. Planned Procedure Time: ___12:30PM .? Time changes happen often and if your time is changed the preop area will call you the afternoon before. - You and your visitor will be asked to self-screen and do not enter if you have any COVID symptoms. Please call surgeon if you need to reschedule. - A mask is optional within the hospital at this time. Patients may have clear liquids (water, carbonated beverages, clear teas, apple juice) until 3 hours prior to surgery with a maximum of 20 ounces. - No food from midnight until time of surgery and no smoking. Take only the following medications with a SIP of water on the morning of surgery: ____NONE DO NOT STOP ANY OF YOUR OTHER PRESCRIPTION MEDICATIONS PRIOR TO SURGERY EXCEPT THE FOLLOWING Medications to discontinue per physician HOLD ALL VITAMINS/SUPPLEMENTS 3 DAYS PRE-OP PER ANESTHESIA____ Date to take last dose 12/09/23 Please no make-up, nail vatican citizen, hairspray, perfume, deodorant, or body powder the day of surgery.? No jewelry (including any body piercings) or valuables the day of surgery, leave them at home.? Please take a shower or bath the night before, or the morning of, surgery with an antibacterial soap.? Wear comfortable, loose fitting clothing.? - Jewelry must be removed prior to entering the operating room.? Rings and piercings that are not removed may be cut off. - The hospital will not accept responsibility for valuables.? - Please leave all valuables, including medications, at home the day of surgery. If you are going home after surgery, a licensed dedicated regional driver must drive you home.? - NO public transportation without another adult if you receive anesthesia. - We recommend that an adult stay with you for 24 hours following discharge. - We also recommend that you do not drive, make important decision, drink alcoholic beverages, or take any drugs that were not prescribed by your health care provider for at least 24 hours after your discharge time. Follow any additional instructions given to you from your surgeon. Telephone instructions given to NANI and asked if any additional questions and then verbalized understanding. Patient advised to call surgeon office or pre surgery nurse liaison [phone] if any additional questions.
[2023-12-13] VITALS (8 sets, daily range): BP systolic 138–160; BP diastolic 51–67; PULSE 54–72; RESP 15–16; TEMP 36.4–36.5; O2SAT 98–100; BMI 28.5
[2023-12-13] MEDS: ACETAMINOPHEN 500 MG TABLET 1000 MG PO (11:06)
[2023-12-13] MEDS: LACTATED RINGERS 1,000 ML 30 ML IV CONT (11:12)
--- NOTE | 2023-12-13 11:31 | WPDANESEPPF ---
Anes - Initial Pre Proc Eval Procedure: Operation Date: 12/13/23 12:30 Proposed Procedures p Wound Debridement of Right Mastectomy Incision - Marisa Lemus MD Date/Time: 12/13/23 11:31 Surgeon: Marisa Lemus MD Pre Op Diagnosis: impaired wound healing, s/p mastectomy Patient Data Age: 78 Gender: F Height: 1.47 m Weight: 61.9 kg Last Vital Signs Temp 36.4 C L 12/13/23 11:11 Pulse 72 12/13/23 11:11 Resp 16 12/13/23 11:11 BP 144/55 H 12/13/23 11:11 Pulse Ox 99 12/13/23 11:11 Allergies Allergy/AdvReac Type Severity Reaction Status Date / Time adhesive tape Allergy SKIN PEELS Verified 12/07/23 11:50 OFF WITH ADHESIVE TAPE(FACE/EYES) Home Medications Medication Instructions Recorded Confirmed Type cholecalciferol (vitamin D3) 125 125 mcg PO DAILY 10/30/23 12/07/23 History mcg (5,000 unit) tablet (Vitamin D3) multivitamin 1 tablet PO DAILY 11/01/23 12/07/23 History hydrocodone 5 mg-acetaminophen 325 1 tablet PO Q6H PRN pain #8 tabs 12/13/23 Rx mg tablet Patient hx anesthesia problems: none Family hx anesthesia problems: none Results Review: All pre-operative results and documents have been reviewed as part of the pre-operative evaluation. [facility] Past Medical History Medical History Arthritis FH: Villafuerte's cyst FH: mastectomy Lack of bladder control Surgical History Surgical History (Updated 11/16/23 @ 15:21 by Marisa Lemus MD) H/O total hysterectomy (~1994) Family History Family History Father , 61 Cirrhosis Mother , 71 Leukemia Sibling , 66 Brain cancer Sibling , 68 Lung disease Social History Social History Smoking packs per day: 1.5 Smoking cigarettes per day: 30.0 Years smoked: 55 Smoking pack-years: 82.50 Smoking status: Former smoker Tobacco type: cigarettes Second hand tobacco smoke exposure: Yes Smoking end date: 10/01/23 Alcohol intake: current Drinks per week: 6 Alcohol use details: 2-3 Beers per night Substance use: never Substance use type: does not use Do You Feel Safe in your Home?: Yes Lack of Transportation: No Lack of Food: Never True Current Housing: I Have Housing Concerned About Future Housing: No Difficulty Paying Gas/Electric Bills: No Difficulty Paying for Meds: No Currently Unemployed: No Education: High School Diploma/GED Difficulty w/ Childcare or Family Care: No Living arrangements: alone Gender identity (if verbalized by the patient): Female Spiritual care concerns: No Anes - Eval Final PreProcedure Day of Procedure 12/13/23 11:31 Patient weight: overweight Heart: regular rate and rhythm Lungs: clear to auscultation Airway: Mallampati scale class II Neurological: other (alert) Last oral intake: >/= 8 hours ASA classification: III Emergent: no Anesthetic plan: proceed Anesthesia type and monitoring: general LMA and standard monitoring Results Review: All pre-operative results and documents have been reviewed as part of the pre-operative evaluation. Informed Consent: The patient's anesthetic plan and its attendant risks and benefits were discussed with the patient/family/POA. Questions were solicited and answers provided to the satisfaction of the patient/family/POA.
--- NOTE | 2023-12-13 13:32 | WPDHPUPDATE1 ---
History and Physical Update Update Date/Time: 12/13/23 13:32 - Right mastectomy flap wound debridement and washout. History and Physical has been reviewed, including an updated exam of the patient. There are NO changes in the patient's condition. Risks, benefits, and alternatives have been discussed and questions answered. Patient agrees to proceed with procedure.
[2023-12-13] MEDS: ceFAZolin 2 GM/D5W 50 ML 2 GM/50 ML BAG IVPB (13:44)
[2023-12-13] MEDS: BUPivacaine HCL 0.5% PF 30 ML VIAL INFILTRATE (14:17)
--- NOTE | 2023-12-13 14:49 | P.OP_ITS ---
Procedure Note - Detailed Date of Procedure 12/13/23 Pre-op Diagnosis impaired wound healing, s/p right mastectomy Post-op Diagnosis Same Procedure Performed Sharp excisional wound debridement of right mastectomy flap, wound washout out ( 16 cm x 4 cm) Surgeon Marisa Lemus MD Skoog Machine Operator Kell Cabral PA-C Anesthesia General Description of Procedure Patient was identified in the preoperative holding area brought to the OR suite. She was laid supine in the operating table sequential compressive devices were applied. Anesthesia was induced without difficulty. The right chest was prepped and draped in a sterile fashion. The right mastectomy wound was copiously irrigated with Betadine and hydrogen peroxide solution prior to beginning the excisional sharp debridement of the necrotic tissue the wound. Once we had excised all the necrotic tissue to healthy bleeding tissue, the cavity was again irrigated with Betadine and saline solution. The lateral aspect of the mastectomy incision was approximated with interrupted 3-0 Prolene sutures. The medial aspect was under too much tension and we decided to pack this area and allowed the tissue to granulate in. The wound was packed with moist Kerlix with saline covered with dry gauze and ABD pad. Patient was awoken from anesthesia and taken to the recovery area in stable condition. All needles, instruments, and sponge counts were correct as reported by the operating room 7. Patient tolerated procedure well with no immediate complications. Kell Cabral PA-C was present and campus administrative assistant with patient retraction and positioning throughout the case. Estimated Blood Loss 10 Packing Yes (moist kerlix ) Pathology None sent Complications No immediate complications Condition Stable Disposition PACU [facility] Billing Surgery - Charge Forward: Surgery Billing (CPT 05936, [id number] - 59 x2)
== END 2023-12-13 16:18 | disposition home or self-care (01) ==
PROVIDERS: PCP Emergency Medicine; Visit Provider Surgery
PROC: (CPT 11042; principal; 2023-12-13 12:30)
DX: T81.89XA Other complications of procedures, not elsewhere classified, initial encounter (principal); L76.82 Other postprocedural complications of skin and subcutaneous tissue; Z90.11 Acquired absence of right breast and nipple; Z85.3 Personal history of malignant neoplasm of breast; Z79.891 Long term (current) use of opiate analgesic; Z87.891 Personal history of nicotine dependence; Z80.6 Family history of leukemia; Y83.8 Other surgical procedures as the cause of abnormal reaction of the patient, or of later complication, without mention of misadventure at the time of the procedure
CPT/HCPCS: 11042; 11045 ×3; A9270; J0690; J1100; J2405; J2704; J3010; J7120

== ENCOUNTER 2023-12-15 12:12 | Outpatient (RCR) | payer OTHER, SELFPAY ==
[2023-12-15 12:14] VITALS: BMI 27.9
== END 2024-02-07 12:20 | disposition home or self-care (01) ==
LOC: ANHWOC 12:12
PROVIDERS: PCP Emergency Medicine; Visit Provider Surgery
DX: Z48.01 Encounter for change or removal of surgical wound dressing (principal); C50.911 Malignant neoplasm of unspecified site of right female breast; Z90.11 Acquired absence of right breast and nipple
CPT/HCPCS: 99214; G0463

== ENCOUNTER 2024-06-07 10:47 | Outpatient (CLI) | payer OTHER, SELFPAY ==
--- NOTE | ~2024-06-07 | US_ITS ---
EXAMINATION TYPE: US breast RT limited COMPARISON: NONE REASON FOR STUDY: MALIGNANT NEOPLASM RIGHT BREAST TECHNIQUE: Targeted sonographic evaluation of the right breast was performed. INTERPRETATION: Sonographic imaging of the region of the mastectomy scar demonstrates 4 x 3 x 3 mm hypoechoic circums cribed nodule. There is an additional 5 x 5 x 2 mm mild complex probable cyst, wider than tall. IMPRESSION: Probable benign subcentimeter nodules along the mastectomy scar region, as above. Six-month follow-up ultrasound recommended to reassess. BI-RADS CATEGORY: BI-RADS 3: Probably benign Reviewed, dictated and finalized at location . IMPRESSION: Probable benign subcentimeter nodules along the mastectomy scar region, as abov e. Six-month follow-up ultrasound recommended to reassess. BI-RADS CATEGORY: BI-RADS 3: Probably benign
--- OUTSIDE RECORDS SUMMARY | 2024-06-07 11:37 | XMS_ITS | Clinical Summary ---
Author Organization [facility] Address [address] [address] Care Team Providers Care Radial Router Operator Name Role Phone Jose Miguel Stewart MD Primary Care Provider [phone] Allergies No known active allergies Medications cholecalciferol, vitamin D3, 5,000 unit Take 400 Units by mouth daily. Active multivitamin (DAILY-PEDRO LUIS) tablet Take 1 Tablet by mouth daily. Active tamoxifen (NOLVADEX) 20 mg tablet Take 1 Tablet (20 mg) by mouth daily. 90 Tablet 4 12/14/2023 Active Active Problems Problem Noted Date Diagnosed Date Osteoporosis 01/22/2024 Encounters Date Type Department Care Team Description 05/14/2024 External Device Data [facility] ABSTRACTION Provider, Abstract 04/18/2024 External Device Data [facility] ABSTRACTION Provider, Abstract 04/17/2024 External Device Data [facility] ABSTRACTION Provider, Abstract 04/16/2024 External Device Data [facility] ABSTRACTION Provider, Abstract from Last 3 Months Family History Medical History Relation Name Comments Brain Cancer Brother Breast Cancer Child 1 No Known Problems Child 2 No Known Problems Child 3 No Known Problems Child 4 Heart Disease Father Liver Cancer Father Leukemia Mother No Known Problems Sister Relation Name Status Comments Brother Child 1 Alive Child 2 Alive Child 3 Alive Child 4 Alive Father Mother Sister Alive Social History Tobacco Use Types Packs/Day Years Used Date Smoking Tobacco: Former Cigarettes 1 40 0 09/21/1983 - 09/24/2023 Tobacco Cessation:Counseling Given: Not Answered Alcohol Use Standard Drinks/Week Comments Yes 0 (1 standard drink = 0.6 oz pur e alcohol) socially Comments Unknown Sex and Gender Information Value Date Recorded Sex Assigned at Not on file Legal Sex Female 12:47 PM CDT Gender Identity Not on file Sexual Orientation Not on file Last Filed Vital Signs Vital Sign Reading Time Taken Comments Blood Pressure 134/62 11/09/2023 11:44 AM CDT Pulse 70 11/09/2023 11:44 AM CDT Temperature 36.6 C (97.8 F) 11/09/2023 11:44 AM CDT Respiratory Rate 16 11/09/2023 11:44 AM CDT Oxygen Saturation 93% 11/09/2023 11:44 AM CDT Inhaled Oxygen Concentration - - Weight 60.8 kg (134 lb) 11/09/2023 11:44 AM CDT Height 144.8 cm (4' 9 ) 09/21/2023 1:26 PM CDT Body Mass Index 29 09/21/2023 1:26 PM CDT Plan of Treatment Health Maintenance Due Date Last Done Comments DTAP/TDAP/TD VACCINES (1 - Tdap) 1965 Lung Cancer Screening 1996 PNEUMOCOCCAL VACCINE 50+ YEARS (1 of 1 - PCV) 04/21/18 97 ZOSTER VACCINE (1 of 2) 1996 OSTEOPOROSIS SCREENING 2011 RSV VACCINE (60+ or ) (1 - 1-dose 75+ series) 2021 INFLUENZA VACCINE (#1) 2023 COVID-19 Vaccine (2 - 2023- season) 2023 Insurance MCR Care Teams Radial Router Operator Relationship Specialty Start Date End Date Jose Miguel Stewart MD [address] [place] [phone] PCP - General Internal Medicine 09/15/23
--- OUTSIDE RECORDS SUMMARY | 2024-06-07 11:37 | XMS_ITS | Clinical Summary ---
Author Organization 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 Gender Identity Not on file Sexual Orientation Not on file Plan of Treatment Health Maintenance Due Date Last Done Comments DEXA Bone Density 1945 Hepatitis C Virus (HCV) Screening 1945 TdaP Immunization 1945 Pneumococcal Immunization (5 0+ years) (2 of 2 - PCV) 01/23/2021 01/24/2020 Respiratory Syncytial Virus (RSV) Immunization (Adult) (1 - 1-dose 75+ series) 2021 Influenza Immunization (#1) 2023 02/04/2020 SARS-COV-2 Immunization ( season) 2023 02/10/2021, 06/08/2020 Zoster Immunization Completed 04/02/2020, 01/24/2020 Hepatitis B Immunization Aged Out No longer eligible based on patient's age to complete this topic Meningococcal Immunization (ACWY) Aged Out No longer eligible b ased on patient's age to complete this topic Rotavirus Immunization Aged Out No lo nger eligible based on patient's age to complete this topic
== END 2024-06-07 10:48 | disposition home or self-care (01) ==
PROVIDERS: PCP Emergency Medicine; Visit Provider Surgery
DX: C50.911 Malignant neoplasm of unspecified site of right female breast (principal)
CPT/HCPCS: 76642

== ENCOUNTER 2024-06-21 11:27 | Outpatient (CLI) | payer OTHER, SELFPAY ==
[2024-06-21 11:46] LABS: Basophils Absolute Auto 0.1 K/mm3 (0.0-0.1); Basophils Percent Auto 0.9 % (0.2-1.2); Eosinophils Absolute Auto 0.2 K/mm3 (0-0.3); Eosinophils Percent Auto 1.8 % (0-4.4); Hematocrit 32.4 % (37.0-47.0); Hemoglobin 10.4 g/dL (12.0-15.0); Immature Granulocyte Absolute 0.07 K/mm3 (0.00-0.031); Immature Granulocyte Percent A 0.7 % (0-0.5); Lymphocytes Absolute Auto 3.23 K/mm3 (0.9-3.2); Lymphocytes Percent Auto 34.5 % (18.3-44.2); Mean Corpuscular HGB Conc 32.1 g/dl (32-36); Mean Corpuscular Hemoglobin 30.8 pg (26-34); Mean Corpuscular Volume 95.9 fl (80-100); Monocytes Absolute Auto 0.7 K/mm3 (0.1-0.6); Monocytes Percent Auto 7.3 % (2.6-8.5); Neutrophils Absolute Auto 5.1 K/mm3 (1.3-6.7); Neutrophils Percent Auto 54.8 % (45.5-73.1); Platelet Count Result 344 k/mm3 (150-375); Red Blood Count 3.38 M/mm3 (4.2-5.4); Red Cell Distribution Width 13.2 % (11.5-14.5); White Blood Count 9.4 K/mm3 (4.5-10.0)
--- OUTSIDE RECORDS SUMMARY | 2024-06-21 12:21 | XMS_ITS | Clinical Summary ---
Author Organization [facility] Address [address] [place] [address] Care Team Providers Care Upholstery Estimator Name Role Phone Jose Miguel Stewart MD Primary Care Provider [phone] Allergies No known active allergies Medications cholecalciferol, [...] 09/21/2023 1:26 PM CDT Plan of Treatment Upcoming Encounters Date Type Department Care Team (Late st Contact Info) Description 07/05/2024 12:45 PM CDT Office Visit [facility] Oncology and Hematology - [place] [address] [place] [address] [facility] [address] [place] [address] Geoff Mirza MD [address] [place] [address] Health Maintenance Due Date Last Done Comments DTAP/TDAP/TD VACCINES (1 - Tdap) 1965 Lung Cancer Screening 1996 PNEUMOCOCCAL VACCINE 50+ YEARS (1 of 1 - PCV) 04/21/18 97 ZOSTER VACCINE (1 of 2) 1996 OSTEOPOROSIS SCREENING 2011 RSV VACCINE (60+ or ) (1 - 1-dose 75+ series) 2021 INFLUENZA VACCINE (#1) 2023 COVID-19 Vaccine (2 - season) 2023 [place] Prev entative Visit/Annual Wellness Visit 03/27/2024 Insurance [facility] MCR Care Teams Upholstery Estimator Relationship Specialty Start Date End Date Jose Miguel Stewart MD [address] [place] [phone] PCP - General Internal Medicine 09/15/23
--- OUTSIDE RECORDS SUMMARY | 2024-06-21 12:21 | XMS_ITS | Encounter Summary ---
Author Organization [facility] Healthcare Address [address] [place] [address] Care Team Providers Care Manager Of Photography Name Role Phone Jose Miguel Stewart MD Primary Care Provide r Encounter Details Date Type Department Care Team (Late st Contact Info) Description 06/20/2024 [facility] Post Discharge Follow up phone call [facility] [address] [place] [phone] Yoli Brennan Social History Tobacco Use Types Packs/Day Years Used Date Smoking Tobacco: Former Cigarettes Q uit: 2023 Smokeless Tobacco: Never [facility] Utilities Answer Date Recorded In the past 12 months has [employer], gas, oil, or water company threatened to shut off services in your home? No 06/12/2024 Social Connection and Isolat ion Panel [NHANES] Answer Date Recorded In a typical week, how many times do you talk on the phone with family, friends, or neighbors? More than three times a week 06/12/2024 How often do you get togethe r with friends or relatives? More than three times a week 06/12/2024 How often do you attend chur ch or jehovah's witness services? Never 06/12/2024 Do you belong to any clubs o r organizations such as zoroastrianism groups, unions, fraternal or athletic groups, or school groups? Yes 06/12/2024 How often do you attend meet ings of the clubs or organizations you belong to? More than 4 times per year 06/12/2024 Are you , , di vorced, , never , or living with a partner? 06/12/2024 AUDIT-C Answer Date Recorded Q1: How often do you have a drink containing alcohol? 4 or more times a week 06/12/2024 Q2: How many drinks containi ng alcohol do you have on a typical day when you are drinking? 1 or 2 Q3: How often do you have si x or more drinks on one occasion? Never 06/12/2024 Overall Financial Resource Strain (CARDIA) Answe r Date Recorded How hard is it for you to pa y for the very basics like food, housing, medical care, and heating? Not hard at all 06/12/2024 Hunger Vital Sign Answer Date Recorded Within the past 12 months, y ou worried that your food would run out before you got the money to buy more. Never true 06/13/19 25 Within the past 12 months, t he food you bought just didn't last and you didn't have money to get more. Never true 06/12/2024 PRAPARE - Transportation Answer Date Re corded In the past 12 months, has l ack of transportation kept you from medical appointments or from getting medications? No 05/25 In the past 12 months, has l ack of transportation kept you from meetings, work, or from getting things needed for daily living? No 06/12/2024 Housing Stability Vital Sign Answer Hermes e Recorded In the last 12 months, was t here a time when you were not able to pay the mortgage or rent on time? No 06/12/2024 In the past 12 months, how m any times have you moved where you were living? 0 06/12/2024 At any time in the past 12 m [facility], were you homeless or living in a prison (including now)? No 06/12/2024 Personal Safety Answer Date Recorded Have you ever been in or are you currently in a harmful physical or emotional relationship or is someone making you feel afraid or unsafe? Denies 06/12/2024 Comments Unknown Sex and Gender Information Value Date Recorded Sex Assigned at Not on file Legal Sex Female 2:43 PM [employer] Gender Identity Not on file Sexual Orientation Not on file documented as of this encounter Plan of Treatment Not on file documented as of this encounter Visit Diagnoses Not on filedocumented in this encounter Care Teams Manager Of Photography Relationship Specialty Start Date End Date Jose Miguel Stewart MD [address] [place] [address] PCP - General Emergency Medicine 06/11/24 documented as of this encounter
--- OUTSIDE RECORDS SUMMARY | 2024-06-21 12:21 | XMS_ITS | Clinical Summary ---
Author Organization [facility] Address [address] [place] [address] Care Team Providers Care Chemist Inorganic Name Role Phone Unavailable Primary Care Provider Unavailabl e Immunizations Immunization Administration Dates Next Due Covid-19 Vaccine, Vector-nr, [id number], Pf, 0.5 Ml ([employer]/Biocontrol&Biocontrol) 02/10/2021 Social History Tobacco Use Types Packs/Day Years Used Date Smoking Tobacco: Never Assessed Comments Unknown Sex and Gender Information Value Date Recorded Sex Assigned at Not on file Legal Sex Female 2:17 PM [employer] Gender Identity Not on file Sexual Orientation [...]
--- OUTSIDE RECORDS SUMMARY | 2024-06-21 12:21 | XMS_ITS | Clinical Summary ---
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 Name Role Phone Jose Miguel Stewart MD Primary Care Provide r Allergies No known active allergies Medications alendronate (FOSAMAX) 70 mg tablet Take 1 tablet (70 mg total) by mouth every 7 days 05/31/2024 Active cholecalciferol (VITAMIN D-3) 5,000 unit tablet Take 0.08 tablets (400 Units total) by mouth daily Active multivitamin tablet Take 1 tablet by mouth daily Active tamoxifen (NOLVADEX) 20 mg tablet Take 1 tablet (20 mg total) by mouth daily 12/14/2023 Active apixaban 5 mg (74 tabs) tablets,dose pack Take 10 mg (2 tablets) by mouth 2 (two) times a day for 7 days, then take 5 mg (1 tablet) by mouth 2 (two) times a day thereafter. 74 tablet 06/13/2024 Active apixaban (ELIQUIS) 5 mg tablet Take 1 tablet (5 mg total) by mouth 2 (two) times a day 60 tablet 1 07/14/2024 Active Active Problems Problem Noted Date Diagnosed Date Other pulmonary embolism with acute cor pulmonal e 06/13/2024 History of tobacco abuse 06/13/2024 Shortness of breath 06/12/2024 Encounters Date Type Department Care Team Description 06/20/2024 [facility] Post Discharge Follow up phone call [facility] [address] [place], [place] [id number] KemarYoli sanchez Jolynn 06/11/2024 7:36 PM CDT - 06/13/2024 6:30 PM CDT Hospital Encounter [facility] [address] [place] [id number] Winsome Healy MD Lo Bianco, Salvador, MD Nations, Matthew Austin, Shortness of breath (Primary Dx); Hyperglycemia; Acute pulmonary embolism with acute cor pulmonale, unspecified pulmonary embolism type (HCC) Discharge Disposition: Discharge to home or self care from Last 3 Months Immunizations Immunization Administration Dates Next Due Influenza, Unspecified 01/16/2024 Surgical History Surgery Date Site/Laterality Comments MASTECTOMY Bilateral Social History Tobacco Use Types Packs/Day Years Used Date Smoking Tobacco: Former Cigarettes Q uit: 2023 Smokeless Tobacco: Never Tobacco Cessation:Counseling Given: No [facility] Utilities Answer Date Recorded In the past 12 months has [employer], gas, oil, or water company threatened [...] often do you attend chur ch or zoroastrianism services? Never 06/12/2024 Do you belong to any clubs o r organizations such as pentecostalism groups, unions, fraternal or athletic groups, or [...] any time in the past 12 m [facility], were you homeless or living in a detention (including now)? No 06/12/2024 Personal Safety Answer Date Recorded Have you ever been in or are you currently in a harmful physical or emotional relationship or is someone making you feel afraid or unsafe? 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 Gender Identity Not on file Sexual Orientation Not on file Obstetrics History Last Filed Vital Signs Vital Sign Reading Time Taken Comments Blood Pressure 117/75 06/13/2024 3:00 PM CDT Pulse 64 06/13/2024 4:00 PM CDT Temperature 36.4 C (97.6 F) 06/13/2024 3:00 PM CDT Respiratory Rate 18 06/13/2024 3:00 PM CDT Oxygen Saturation 95% 06/13/2024 11:00 AM CDT Inhaled Oxygen Concentration - - Weight 59.2 kg (130 lb 8.2 oz) 06/12/2024 4:43 A M CDT Height 142.2 cm (4' 8 ) 06/12/2024 4:43 AM CDT Body Mass Index 29.26 06/12/2024 4:43 AM CDT Plan of Treatment Health Maintenance Due Date Last Done Comments Depression Screening 1945 Hepatitis C Screening 1945 Osteoporosis Screening-Bone Density Scan 1945 DTaP/Tdap/Td Vaccine (1 - Tdap) 1957 Hepatitis B Screening 1964 Well Visit 65+ 2011 Pneumococcal vaccine 65+ (2 of 2 - PCV) 01/23/2021 01/24/2020 Covid-19 Vaccine (3 - 2023-2 5 season) 2023 02/10/2021, 06/08/2020 Fall Risk Assessment 06/13/2025 06/13/2024 Zoster Vaccine Completed 04/02/2020, 01/24/2020 Influenza Vaccine Completed 01/16/2024, , 03/12/2021, Additional history exists Procedures Procedure Name Priority Date/Time Associated Diagnosis Comments APTT Routine 06/13/2024 5:53 AM CDT EGFR Routine 06/13/2024 12:19 AM CDT DIFFERENTIAL AUTO Routine 06/13/2024 12: 19 AM CDT APTT Timed 06/13/2024 12:19 AM CDT BASIC METABOLIC PANEL Routine 06/13/2024 12:19 AM CDT CBC WITH AUTO DIFFERENTIAL Routine 06/13/2024 12:19 AM CDT B ABO / RH CONFIRMATION TESTING STAT 06/12/2024 6:59 PM CDT APTT Routine 06/12/2024 5:04 PM CDT US VEIN DUPLEX LOWER EXTREMITY BILATERAL COMPLETE IP Routine 06/12/2024 1:06 PM CDT APTT Timed 06/12/2024 10:50 AM CDT TRANSTHORACIC ECHO (TTE) COMPLETE W DOPPLER/CF W CONTRAST Routine 06/12/2024 10:37 AM CDT APTT Timed 06/12/2024 8:46 AM CDT ANTIBODY SCREEN Timed 06/12/2024 7:32 AM CDT ABO/RH Timed 06/12/2024 7:32 AM CDT TYPE AND SCREEN Timed 06/12/2024 7:32 AM CDT MAGNESIUM Routine 06/12/2024 6:34 AM CDT POTASSIUM LEVEL Routine 06/12/2024 6:34 AM CDT PHOSPHORUS Routine 06/12/2024 6:34 AM CDT SODIUM LEVEL Routine 06/12/2024 6:34 AM CDT APTT Timed 06/12/2024 6:34 AM CDT CRITICAL CARE Routine 06/12/2024 3:33 AM CDT [place] CRITICAL CARE ILL/INJURED PATIENT INIT 30-74 MIN Routine 06/12/2024 3:[address] CHEST PE W CONTRAST ED 06/12/2024 1:46 AM CDT D-DIMER, QUANTITATIVE STAT 06/11/2024 11:05 PM CDT TROPONIN T HIGH-SENSITIVITY 2-HOUR Timed 06/11/2024 11:05 PM CDT APTT Add-On 06/11/2024 11:04 PM CDT PROTIME-INR STAT 06/11/2024 11:04 PM CDT BLOOD CULTURE STAT 06/11/2024 8:59 PM CDT BLOOD CULTURE STAT 06/11/2024 8:51 PM CDT XR CHEST 1 VIEW ED 06/11/2024 8:45 PM CDT SEPSIS LACTATE WITH REFLEX STAT 06/11/2024 8:32 PM CDT HEMOGLOBIN A1C Add-On 06/11/2024 8:06 PM CDT EGFR STAT 06/11/2024 8:06 PM CDT DIFFERENTIAL AUTO STAT 06/11/2024 8:0 6 PM CDT TROPONIN T HIGH-SENSITIVITY SERIES (BASELINE, 2HR, 4HR, 6HR) STAT 06/11/2024 8:06 PM CDT COMPREHENSIVE METABOLIC PANEL STAT 06/11/2024 8:06 PM CDT CBC WITH AUTO DIFFERENTIAL STAT 06/11/2024 8:06 PM CDT PRO B-TYPE NATRIURETIC PEPTIDE STAT 06/11/2024 8:06 PM CDT INFLUENZA A/B, RSV, AND COVID-19 PCR STAT 06/11/2024 8:06 PM CDT ECG 12-LEAD Routine 06/11/2024 7:41 PM CDT from Last 3 Months Results * (ABNORMAL) aPTT (06/13/2024 5:53 AM CDT) aPTT 100(H) 28 - 38 sec [facility] ([place]) Comment: Interpretive Data Heparin therapeutic range: 66.0 - 100.0 seconds. Range based on correlation with therapeutic heparin activity range of 0.3 - 0.7 Units/mL. Current interpretive data was last revised on 2022. Blood 06/13/2024 5:53 AM CDT 06/13/2024 5:58 AM CDT Narrative [facility] ([place]) - 06/13/2024 6:24 AM CDT Do not draw lab from IV line that is actively infusing heparin. Use the opposite arm. If arm with actively infusing heparin must be used, pause the infusion for at least 2 minutes, and draw specimen below the IV site. For patients with a central venous catheter (CVC), lab must be drawn peripherally (not from CVC). us Neville Pathak DO LAB BLOOD ORDERABLES F inal Result [facility] ([place]) 1 [facility] Department [place] [address] * (ABNORMAL) eGFR (06/13/2024 12:19 AM CDT) eGFR 50(L) >=60 mL/min/1. 73 m2 Comment: Interpretive Data Reference Interval Normal >/= 90 mL/min/1.73m2 Mildly decreased* 60 - 89 mL/min/1.73m2 Mildly to moderately decreased 45 - 59 mL/min/1.73m2 Moderately to severely decreased 30 - 44 mL/min/1.73m2 Severely decreased 15 - 29 mL/min/1.73m2 Kidney Failure < 15 mL/min/1.73m2 *Relative to young adult level Estimated glomerular filtration rate is determined by the 2020 CKD-EPI equation recommended by the National Kidney Foundation (A Unifying Approach to GFR Estimation: Recommendations of the NKF-ASK Task Force on Reassessing the Inclusion of Race in Diagnosing Kidney Disease, JASN 2020). The CKD-EPI equation should not be used for patients with unstable renal function and has not been validated in children and those over 70. Current interpretive data was last reviewed 2021. Blood 06/13/2024 12:1 9 AM CDT 06/13/2024 12:53 AM CDT us Winsome Healy MD LAB BLOOD ORDERABLES Final Resul t [facility] ([place]) 1 [facility] [place] [address] * (ABNORMAL) Differential, auto (06/13/2024 12:19 AM CDT) Neutrophil abs 9.8(H) 1.5 - 6.5 K/cumm Imm gran abs 0.1 0.0 - 0.1 K/cumm [facility] ([place]) Lymphocyte abs 4.5(H) 0.8 - 3.3 K/cumm [facility] ([place]) Monocyte abs 1.0(H) 0.2 - 0.8 K/cumm [facility] ([place]) Eosinophil abs 0.0 0.0 - 0.5 K/cumm [facility] ([place]) Basophil abs 0.0 0.0 - 0.1 K/cumm [facility] ([place]) Neutrophil pct 63.8 % [facility] ([place]) Comment: Interpretive Data Percent cell count reference ranges are not reported, since discordance with absolute values may lead to misinterpretation of CBC data. Current Interpretive Data was last revised on 2017. Imm gran pct 0.6 % [facility] ([place]) Comment: Interpretive Data Percent cell count reference ranges are not reported, since discordance with absolute values may lead to misinterpretation of CBC data. Current Interpretive Data was last revised on 2017. Lymphocyte pct 29.2 % [facility] ([place]) Comment: Interpretive Data Percent cell count reference ranges are not reported, since discordance with absolute values may lead to misinterpretation of CBC data. Current Interpretive Data was last revised on 2017. Monocyte pct 6.2 % [facility] ([place]) Comment: Interpretive Data Percent cell count reference ranges are not reported, since discordance with absolute values may lead to misinterpretation of CBC data. Current Interpretive Data was last revised on 2017. Eosinophil pct 0.1 % [facility] ([place]) Comment: Interpretive Data Percent cell count reference ranges are not reported, since discordance with absolute values may lead to misinterpretation of CBC data. Current Interpretive Data was last revised on 2017. Basophil pct 0.1 % [facility] ([place]) Comment: Interpretive Data Percent cell count reference ranges are not reported, since discordance with absolute values may lead to misinterpretation of CBC data. Current Interpretive Data was last revised on 2017. Blood 06/13/2024 12:1 9 AM CDT 06/13/2024 12:53 AM CDT us Winsome Healy MD LAB BLOOD ORDERABLES Final Resul t [facility] ([place]) 1 [facility] [place] [address] * (ABNORMAL) CBC with auto differential (06/13/2024 12:19 AM CDT) WBC 15.4(H) 3.8 - 9.9 K/cumm Hgb 9.3(L) 11.9 - 15.5 g/dL [facility] ([place]) Hct 28.4(L) 35.6 - 45.5 % [facility] ([place]) Plt 267 150 - 400 K/cumm [facility] ([place]) MPV 9.1 9.1 - 12.3 fL [facility] ([place]) RBC 2.97(L) 3.90 - 5.20 M/cumm [facility] ([place]) MCV 95.6 81.3 - 96.4 fL [facility] ([place]) MCH 31.3 27.1 - 33.3 pg [facility] ([place]) MCHC 32.7 32.3 - 35.7 g/dL [facility] ([place]) RDW CV 13.4 11.1 - 14.9 % [facility] ([place]) RDW SD 45.8 35.7 - 48.1 fL [facility] ([place]) NRBC abs 0.00 0.00 - 0.01 K/cumm [facility] ([place]) Blood 06/13/2024 12:1 9 AM CDT 06/13/2024 12:53 AM CDT us Domingo Emery MD LAB BLOOD ORDERABLES Final Result Performing Organization Address City/[facility]/ZIP Co de Phone Number [facility] ([place]) 1 [facility] [place] [address] * (ABNORMAL) aPTT (06/13/2024 12:19 AM CDT) aPTT 90(H) 28 - 38 sec [facility] ([place]) Comment: Interpretive Data Heparin therapeutic range: 66.0 - 100.0 seconds. Range based on correlation with therapeutic heparin activity range of 0.3 - 0.7 Units/mL. Current interpretive data was last revised on 2022. Blood 06/13/2024 12:1 9 AM CDT 06/13/2024 12:53 AM CDT Narrative [facility] ([place]) - 06/13/2024 1:26 AM CDT Do not draw lab from IV line that is actively infusing heparin. Use the opposite arm. If arm with actively infusing heparin must be used, pause the infusion for at least 2 minutes, and draw specimen below the IV site. For patients with a central venous catheter (CVC), lab must be drawn peripherally (not from CVC). Neville Pathak DO LAB BLOOD ORDERABLES F inal Result Performing Organization Address City/[facility]/ZIP Co de Phone Number [facility] ([place]) 1 [facility] [place] [address] * (ABNORMAL) Basic metabolic panel (06/13/2024 12:19 AM CDT) Sodium 137 135 - 145 mmol/L Potassium, pl 3.8 3.3 - 4.9 mmol/L [facility] ([place]) Chloride 103 97 - 110 mmol/L [facility] ([place]) CO2 21(L) 22 - 32 mmol/L [facility] ([place]) Anion gap 13 2 - 15 mmol/L [facility] ([place]) BUN 26(H) 6 - 25 mg/dL [facility] ([place]) Creatinine 1.13(H) 0.60 - 1.10 mg/dL [facility] ([place]) Glucose 128 70 - 199 mg/dL [facility] ([place]) Comment: Interpretive Data Fasting glucose >/= 126 mg/dl is diagnostic for diabetes. Fasting is defined as no caloric intake for at least 8 hours. Fasting glucose between 100 mg/dl to 125 mg/dl is diagnostic of prediabetes. In a patient with classic symptoms of hyperglycemia or hyperglycemic crisis, a random glucose >/= 200 mg/dl is diagnostic for diabetes. In the absence of unequivocal hyperglycemia, results should be confirmed by repeat testing. The classification and Diagnosis of Diabetes Diabetes Care 2021; 46: S19-S40. Current interpretive data was last revised 2022. Calcium 8.3(L) 8.5 - 10.3 mg/dL [facility] ([place]) Blood 06/13/2024 12:1 9 AM CDT 06/13/2024 12:53 AM CDT Domingo Emery MD LAB BLOOD ORDERABLES Final Result Performing Organization Address City/[facility] Co de Phone Number [facility] ([place]) 1 [facility] [place] [address] * ABO / Rh Confirmation Testing (06/12/2024 6:59 PM CDT) ABO/Rh Confirmation A Positive [facility] Blood 06/12/2024 6:59 PM CDT 06/12/2024 7:04 PM CDT Domingo Emery MD LAB BLOOD ORDERABLES Final Result [facility] ([place]) 1 [facility] [email or web address] [address] [facility] * (ABNORMAL) aPTT (06/12/2024 5:04 PM CDT) aPTT 66(H) 28 - 38 sec [facility] ([place]) Comment: Interpretive Data Heparin therapeutic range: 66.0 - 100.0 seconds. Range based on correlation with therapeutic heparin activity range of 0.3 - 0.7 Units/mL. Current interpretive data was last revised on 2022. Blood 06/12/2024 5:04 PM CDT 06/12/2024 5:09 PM CDT Domingo Emery MD LAB BLOOD ORDERABLES Final Result [place] [place] 1 [facility] [place] [address] * US Vein Duplex Lower Extremity Bilateral Complete (06/12/2024 1:06 PM CDT) Anatomical Region Laterality Modality Vascular Bilateral Ultrasound 06/12/2024 3:47 PM CDT Narrative 06/12/2024 3:49 PM CDT EXAM DESCRIPTION: US VEIN DUPLEX LOWER EXTREMITY BILATERAL COMPLETE REASON FOR STUDY: Pulmonary Embolism without Acute Cor Pulmonale TECHNIQUE: Grayscale, color and spectral Doppler imaging of the deep venous system of the bilateral lower extremities was performed. Images stored on PACS. COMPARISON: None FINDINGS: The common femoral, common femoral-saphenous vein confluence, visualized profunda femoral, superficial femoral, and popliteal veins are readily compressible bilaterally with no intraluminal thrombus on tracy scale images. There is normal color and spectral Doppler signal, including augmentation. Greater saphenous vein appears patent. Visualized calf veins are patent. IMPRESSION: No evidence of lower extremity deep venous thrombosis. THIS IS AN ELECTRONICALLY VERIFIED FINAL REPORT 06/12/2024 3:49 PM - Electronically signed by Donn Valle M.D. KR: ANDRE Report ID: [id number] Reading Location: [id number] Procedure Note Donn Valle MD - 06/12/2024 EXAM DESCRIPTION: US VEIN DUPLEX LOWER EXTREMITY BILATERAL COMPLETE REASON FOR STUDY: Pulmonary Embolism without Acute Cor Pulmonale TECHNIQUE: Grayscale, color and spectral Doppler imaging of the deepvenous system of the bilateral lower extremities was performed. Images stored onPACS. COMPARISON: None FINDINGS: The common femoral, common femoral-saphenous vein confluence, visualized profunda femoral, superficial femoral, and popliteal veins are readily compressible bilaterally with no intraluminal thrombus on tracy scaleimages. There is normal color and spectral Doppler signal, including augmentation. Greater saphenous vein appears patent. Visualized calf veins are patent. IMPRESSION: No evidence of lower extremity deep venous thrombosis. THIS IS AN ELECTRONICALLY VERIFIED FINAL REPORT 06/12/2024 3:49 PM - Electronically signed by Donn Valle M.D. KR: ANDRE Report ID: [id number] Reading Location: [place] [address] Domingo Emery MD IMG US PROCEDURES Final Re sult * (ABNORMAL) aPTT (06/12/2024 10:50 AM CDT) aPTT 20(L) 28 - 38 sec [facility] ([place]) Comment: Interpretive Data Heparin therapeutic range: 66.0 - 100.0 seconds. Range based on correlation with therapeutic heparin activity range of 0.3 - 0.7 Units/mL. Current interpretive data was last revised on 2022. Blood 06/12/2024 10:5 0 AM CDT 06/12/2024 10:56 AM CDT Narrative [facility] ([place]) - 06/12/2024 11:11 AM CDT Collect immediately after alteplase infusion ends and then every 2 hours until aPTT is less than 76 seconds. Once aPTT is less than 76 seconds, alert provider to discontinue order. Winsome Healy MD LAB BLOOD ORDERABLES Final Resul t [facility] ([place]) 1 [facility] Department of Laboratories [place], [place] [id number] * TRANSTHORACIC ECHO (TTE) COMPLETE W DOPPLER/CF W CONTRAST (06/12/2024 10:37 AM CDT) LV EF 62 % CONS SCIMAGE Anatomical Region Laterality Modality Ultrasound 06/12/2024 10:1 3 AM CDT Narrative 06/12/2024 2:08 PM CDT [address] [address] Echocardiogram Report Patient Name: ANSON MILLER M : 1945 Study Date: 06/12/2024 10:13:02 AM Gender: F Tech: NL Location: [id number] Ref Provider: JACEK JAMISON Height(Cm): 142 BSA: 1.56 Weight(Kg): 61.7 Quality: Definity contrast agent used to enhance endocardial border definition Order Provider: JACEK JAMISON PROCEDURES: Echocardiographic Report: Transthoracic echocardiogram with complete 2D, M-Mode, color Doppler examination and contrast. INDICATIONS: right heart strain, new PE - MEASUREMENTS: 2D/MM Value Range Doppler Value Range EF Teich MM 62.0 % [ 54.0 - 74.0 ] EDUARDO Vmax 2.29 cm2 Estimated EF 62 % AV Mean PG 4 mmHg LVIDd MM 4.70 cm [ 3.80 - 5.20 ] AV Peak Daniel 1.37 m/s [ 1.00 - 1.70 ] LVIDs MM 3.10 cm [ 2.20 - 3.50 ] AV VTI 32.79 cm LVPWd MM 0.80 cm [ 0.60 - 0.90 ] LVOT Diam 2.05 cm IVSd MM 0.70 cm [ 0.60 - 0.90 ] LVOT Peak Daniel 0.95 m/s [ 0.70 - 1.10 ] LA Dimension MM 3.92 cm [ 2.70 - 3.80 ] LVOT VTI 21.90 cm AoR Diam MM 3.06 cm [ 2.70 - 3.70 ] MV E Peak Daniel 0.65 m/s [ 0.60 - 1.30 ] ACS MM 1.33 cm MV A Peak Daniel 1.06 m/s [ 1.00 - 1.20 ] MV Mean PG 2 mmHg MV PHT 66 msec [ 20 - 100 ] MVA 3.30 MV Decel Time 201 msec [ 104 - 258 ] PV Peak Daniel 0.48 m/s [ 0.40 - 0.80 ] TR Peak Daniel 3.26 m/s [ 1.00 - 2.80 ] TR Peak PG 43 mmHg RVSP 58.00 mmHg [ 10.00 - 36.00 ] E` 0.05 m/s E/E` 14.15 [ <= 10.00 ] PA Pressure 58.00 mmHg [ 10.00 - 36.00 ] 2D/MM Value Range Doppler Value Range - FINDINGS: Atrial Septum: The atrial septum is not well visualized. Left Ventricle: Normal left ventricular systolic function with no focal wall motion abnormalities. Normal left ventricular size. Normal left ventricular wall thickness. Impaired diastolic relaxation Grade I. Ejection Fraction is estimated to be 62 %. Left Atrium: The left atrium is normal in size. Right Ventricle: Moderate enlargement of right ventricle. Mild right ventricular hypokinesis. Right Atrium: There is mild enlargement of right atrium. Aortic Valve: Normal structure of the aortic valve. Mitral Valve: Normal structure of the mitral valve. Pulmonic Valve: Pulmonic valve not well visualized. Tricuspid Valve: Moderate pulmonary hypertension based on right ventricular systolic pressure. Estimated peak RVSP is 55 mmHg. Severe tricuspid regurgitation. Pericardium: Normal pericardium with no significant pericardial effusion. Aorta: Normal aortic root. IVC: Normal size and normal respiratory collapse consistent with normal right atrial pressure (<5 mmHg). CONCLUSIONS: Normal left ventricular systolic function with no focal wall motion abnormalities. Normal left ventricular size. Normal left ventricular wall thickness. Impaired diastolic relaxation Grade I. Ejection Fraction is estimated to be 62 %. Moderate enlargement of right ventricle. Mild right ventricular hypokinesis. Normal structure of the mitral valve. Normal structure of the aortic valve. Moderate pulmonary hypertension based on right ventricular systolic pressure. Estimated peak RVSP is 55 mmHg. Severe tricuspid regurgitation. Electronically Signed By: Jak Wilson MD B 06/12/2024 2:08:19 PM CDT Procedure Note Jak Wilson MD - 06/12/[address] [place] [address] Echocardiogram Report Patient Name: ANSON MILLER M : 1945 Study Date: 06/12/2024 10:13:02 AM Gender: F Tech: Location: [place] [address] Ref Provider: JACEK JAMISON Height(Cm): 142 BSA: 1.56 Weight(Kg): 61.7 Quality: Definity contrast agent used to enhance endocardial borderdefinition Order Provider: JACEK JAMISON PROCEDURES: Echocardiographic Report: Transthoracic echocardiogram with complete 2D, M-Mode, color Dopplerexamination and contrast. INDICATIONS: right heart strain, new PE - MEASUREMENTS: 2D/MM Value Range Doppler ValueRange EF Teich MM 62.0 % [ 54.0 - 74.0 ] EDUARDO Vmax 2.29cm2 Estimated EF 62 % AV Mean PG 4 mmHg LVIDd MM 4.70 cm [ 3.80 - 5.20 ] AV Peak Daniel 1.37 m/s[ 1.00 - 1.70 ] LVIDs MM 3.10 cm [ 2.20 - 3.50 ] AV VTI 32.79cm LVPWd MM 0.80 cm [ 0.60 - 0.90 ] LVOT Diam 2.05cm IVSd MM 0.70 cm [ 0.60 - 0.90 ] LVOT Peak Daniel 0.95 m/s[ 0.70 - 1.10 ] LA Dimension MM 3.92 cm [ 2.70 - 3.80 ] LVOT VTI 21.90cm AoR Diam MM 3.06 cm [ 2.70 - 3.70 ] MV E Peak Daniel 0.65 m/s[ 0.60 - 1.30 ] ACS MM 1.33 cm MV A Peak Daniel 1.06 m/s[ 1.00 - 1.20 ] MV Mean PG 2 mmHg MV PHT 66 msec [ 20 - 100 ] MVA 3.30 MV Decel Time 201 msec [ 104 - 258 ] PV Peak Daniel 0.48 m/s [ 0.40 - 0.80 ] TR Peak Daniel 3.26 m/s [ 1.00 - 2.80 ] TR Peak PG 43 mmHg RVSP 58.00 mmHg [ 10.00 - 36.00 ] E` 0.05 m/s E/E` 14.15 [ <= 10.00 ] PA Pressure 58.00 mmHg [ 10.00 - 36.00 ] 2D/MM Value Range Doppler ValueRange - FINDINGS: Atrial Septum: The atrial septum is not well visualized. Left Ventricle: Normal left ventricular systolic function with no focal wall motionabnormalities. Normal left ventricular size. Normal left ventricular wall thickness. Impaireddiastolic relaxation Grade I. Ejection Fraction is estimated to be 62 %. Left Atrium: The left atrium is normal in size. Right Ventricle: Moderate enlargement of right ventricle. Mild right ventricularhypokinesis. Right Atrium: There is mild enlargement of right atrium. Aortic Valve: Normal structure of the aortic valve. Mitral Valve: Normal structure of the mitral valve. Pulmonic Valve: Pulmonic valve not well visualized. Tricuspid Valve: Moderate pulmonary hypertension based on right ventricular systolicpressure. Estimated peak RVSP is 55 mmHg. Severe tricuspid regurgitation. Pericardium: Normal pericardium with no significant pericardial effusion. Aorta: Normal aortic root. IVC: Normal size and normal respiratory collapse consistent with normal rightatrial pressure (<5 mmHg). CONCLUSIONS: Normal left ventricular systolic function with no focal wall motionabnormalities. Normal left ventricular size. Normal left ventricular wall thickness. Impaireddiastolic relaxation Grade I. Ejection Fraction is estimated to be 62 %. Moderate enlargement of right ventricle. Mild right ventricularhypokinesis. Normal structure of the mitral valve. Normal structure of the aortic valve. Moderate pulmonary hypertension based on right ventricular systolicpressure. Estimated peak RVSP is 55 mmHg. Severe tricuspid regurgitation. Electronically Signed By: Jak Wilson MD [facility] 06/12/2024 2:08:19 PM CDT Jacek Jamison MD CV ECHO PROCEDURES Fi nal Result * (ABNORMAL) aPTT (06/12/2024 8:46 AM CDT) aPTT 20(L) 28 - 38 sec [facility] ([place]) Comment: Interpretive Data Heparin therapeutic range: 66.0 - 100.0 seconds. Range based on correlation with therapeutic heparin activity range of 0.3 - 0.7 Units/mL. Current interpretive data was last revised on 2022. Blood 06/12/2024 8:46 AM CDT 06/12/2024 8:51 AM CDT Narrative JONATHAN [facility] ([place]) - 06/12/2024 9:24 AM CDT Collect immediately after alteplase infusion ends and then every 2 hours until aPTT is less than 76 seconds. Once aPTT is less than 76 seconds, alert provider to discontinue order. Winsome Healy MD LAB BLOOD ORDERABLES Final Resul t JONATHAN [facility] ([place]) 1 [facility] [email or web address] [address] * ABO/Rh (06/12/2024 7:32 AM CDT) ABO/Rh A Positive Blood 06/12/2024 7:32 AM CDT 06/12/2024 7:40 AM CDT Narrative JONATHAN [facility] ([place]) - 06/12/2024 8:21 AM CDT Has the patient had Daratumumab or Isatuximab in the past 6 months?->Unknown Domingo Emery MD LAB BLOOD BANK TEST ORDERA BLES Final Result J[facility]ATHAN [facility] ([place]) 1 [facility] [email or web address] [address] * Antibody screen (06/12/2024 7:32 AM CDT) [place], indirect, Gel Interpretation Negative ABSC Blood 06/12/2024 7:32 AM CDT 06/12/2024 7:40 AM CDT Narrative JONATHAN [facility] ([place]) - 06/12/2024 8:21 AM CDT Has the patient had Daratumumab or Isatuximab in the past 6 months?->Unknown Domingo Emery MD LAB BLOOD BANK TEST ORDERA BLES Final Result JONATHAN [facility] ([place]) 1 [facility] [email or web address] [address] * (ABNORMAL) aPTT (06/12/2024 6:34 AM CDT) aPTT 41(H) 28 - 38 sec JONATHAN [facility] ([place]) Comment: Interpretive Data Heparin therapeutic range: 66.0 - 100.0 seconds. Range based on correlation with therapeutic heparin activity range of 0.3 - 0.7 Units/mL. Current interpretive data was last revised on 2022. Blood 06/12/2024 6:34 AM CDT 06/12/2024 6:42 AM CDT Narrative JONATHAN [facility] ([place]) - 06/12/2024 6:54 AM CDT Collect immediately after alteplase infusion ends and then every 2 hours until aPTT is less than 76 seconds. Once aPTT is less than 76 seconds, alert provider to discontinue order. Winsome Healy MD LAB BLOOD ORDERABLES Final Resul t JONATHAN [facility] ([place]) 1 [facility] [email or web address] [address] * (ABNORMAL) Sodium level (06/12/2024 6:34 AM CDT) Sodium 134(L) 135 - 145 mmol/L Blood 06/12/2024 6:34 AM CDT 06/12/2024 6:42 AM CDT us Jacek Jamison MD LAB BLOOD ORDERABLES Final Result JONATHAN [facility] ([place]) 1 [facility] [place] [address] * (ABNORMAL) Potassium (06/12/2024 6:34 AM CDT) Potassium, pl 5.7(H) 3.3 - 4.9 mmol/L Comment:Moderately Hemolyzed Specimen. Results may be affected. Blood 06/12/2024 6:34 AM CDT 06/12/2024 6:42 AM CDT Jacek Jamison MD LAB BLOOD ORDERABLES Final Result Performing Organization Address City/[facility] Co de Phone Number JONATHAN XAVIER ([place]) 1 [facility] [place] [address] * Phosphorus (06/12/2024 6:34 AM CDT) Phosphorus, pl 3.7 2.3 - 4.5 mg/dL Blood 06/12/2024 6:34 AM CDT 06/12/2024 6:42 AM CDT Jacek Jamison MD LAB BLOOD ORDERABLES Final Result JONATHAN [facility] ([place]) 1 [facility] [place] [address] * Magnesium (06/12/2024 6:34 AM CDT) Magnesium 2.3 1.4 - 2.5 mg/dL Blood 06/12/2024 6:34 AM CDT 06/12/2024 6:42 AM CDT Jacek Jamison MD LAB BLOOD ORDERABLES Final Result JONATHAN [facility] [place] 1 [facility] [place] [address] * Critical Care (06/12/2024 3:33 AM CDT) Narrative Jacek Jamison MD - 06/12/2024 3:33 AM CDT Jacek Jamison MD 06/12/2024 5:48 AM Critical Care Performed by: Jacek Jamison MD Authorized by: Jacek Jamison MD CRITICAL CARE: Team: EICU Shift: PM Level of Billing: Critical Care My time spent with this patient was 50 minutes: Critical Provider Statement: I have seen and examined the patient on this day of service. I have reviewed and confirmed the history, physical exam, laboratory and radiologic data as documented in the signed ICU note. I have reviewed and discussed my treatment plan with the ICU team and other medical/inbound sales consultant staff, making frequent assessments and decisions regarding this patient's complex medical care. Critical Care time was exclusive of time spent performing separately billed procedures, treating other patients, and teaching. This time was in addition to and separate from critical care provided by other practitioners in my group on this day of service. Critical Care was necessary to treat or prevent imminent or life-threatening deterioration of the following conditions: Acute pain/acute postoperative pain Acute hypoxic respiratory failure and Pulmonary embolus Leukocytosis This time was spent by me doing the following: Serial bedside patient exams Active and frequent reassessment of respiratory status and oxygen requirements and Incentive spirometry, pulmonary toilet Active repletion of electrolytes I spent time reviewing and interpreting data from bedside monitors, laboratory results, and imaging, I spent time discussing the management of this critically ill patient with consultants and the medical staff and I spent time documenting in the medical record us Jacek Jamison MD IN CLINIC/BEDSIDE ORD ERABLES Final Result * [place] CRITICAL CARE ILL/INJURED PATIENT INIT 30-74 MIN (06/12/2024 3:14 AM CDT) Narrative Winsome Healy MD - 06/12/2024 3:14 AM CDT Winsome Healy MD 06/12/2024 3:15 AM Critical Care Performed by: Winsome Healy MD Authorized by: Winsome Healy MD Critical care provider statement: As reflected in the history, physical exam, orders, notes, and/or MDM, I was personally present while the patient was critically ill and provided critical care services for 60 minutes, excluding time involved in separately billable procedures. Critical care was necessary to treat or prevent imminent or life-threatening deterioration of the following condition(s): pulmonary embolus and hypoxic respiratory failure Critical care was time spent by me providing the following: continuous telemetry, continuous pulse oximetry, interpretation of bedside monitors, imaging, and arterial/venous lab draws, serial bedside patient exams and serial laboratory checks Pt with multiple PE with right heart strain I provided emergent necessary critical care medicine services to this patient. I ordered and reviewed test results and/or imaging studies. I spent time discussing the management of this critically ill patient with consultants and the medical staff. I spent time discussing the management and therapeutic options for this critically ill patient with the patient themselves or with the appropriate designated surrogate decision-maker. I spent time documenting in the medical record. I admitted this patient to an Intensive Care unit (ICU) and discussed management with the admitting team. us Winsome Healy MD IN CLINIC/BEDSIDE ORDERABLES Fin al Result * CT Chest PE (CTA) W Contrast (06/12/2024 1:46 AM CDT) Anatomical Region Laterality Modality Body N/A Computed Tomogra phy 06/12/2024 2:04 AM CDT Narrative 06/12/2024 2:11 AM CDT EXAM DESCRIPTION: CT CHEST PE (CTA) W CONTRAST REASON FOR STUDY: Pulmonary embolism (PE) suspected, low to intermediate prob, positive D-dimer Patient presents with shortness of breath and cough since . Hx of breast cancer with double mastectomy TECHNIQUE: CT angiogram of the chest performed with intravenous contrast using helical scanning technique with dynamic intravenous contrast injection. Reconstructed coronal and sagittal MPR images reviewed. All images stored on PACS. 3D MIP images rendered on scanning unit and reviewed at time of interpretation. Automated exposure control was used as a dose optimization technique for this examination. CONTRAST TYPE/DOSE: 75mL of IOVERSOL 350 MG IODINE/ML INTRAVENOUS SYRINGE injected via intravenous COMPARISON: None FINDINGS: VASCULATURE: Filling defects throughout the lobar and segmental branches. Moderate right heart strain with RV/LV ratio 1.8. Scattered atherosclerotic calcifications in the systemic arteries . MEDIASTINUM/ADELE: Heart size normal. Mild coronary artery calcifications. Thoracic inlet unremarkable. LUNGS: Moderate emphysema. Trachea and major airways patent. UPPER ABDOMEN: Unremarkable. MUSCULOSKELETAL: Moderate multilevel disc disease. CHEST WALL: Mastectomies. IMPRESSION: PEs throughout the lobar and segmental branches. Moderate right heart strain with RV/LV ratio 1.8. Findings called at the time of interpretation. THIS IS AN ELECTRONICALLY VERIFIED FINAL REPORT 06/12/2024 2:11 AM - Electronically signed by Dayne Avila M.D. AR: JOSE A Report ID: [id number] Reading Location: [place] [address] Procedure Note Dayne Avila MD - 06/12/2024 EXAM DESCRIPTION: CT CHEST PE (CTA) W CONTRAST REASON FOR STUDY: Pulmonary embolism (PE) suspected, low to intermediate prob, positive D-dimer Patient presents with shortness of breath and cough since . Hx of breast cancer with double mastectomy TECHNIQUE: CT angiogram of the chest performed with intravenous contrastusing helical scanning technique with dynamic intravenous contrast injection. Reconstructed coronal and sagittal MPR images reviewed. All images storedon PACS. 3D MIP images rendered on scanning unit and reviewed at time of interpretation. Automated exposure control was used as a doseoptimization technique for this examination. CONTRAST TYPE/DOSE: 75mL of IOVERSOL 350 MG IODINE/ML INTRAVENOUSSYRINGE injected via intravenous COMPARISON: None FINDINGS: VASCULATURE: Filling defects throughout the lobar and segmentalbranches. Moderate right heart strain with RV/LV ratio 1.8. Scatteredatherosclerotic calcifications in the systemic arteries . MEDIASTINUM/ADELE: Heart size normal. Mild coronary arterycalcifications. Thoracic inlet unremarkable. LUNGS: Moderate emphysema. Trachea and major airways patent. UPPER ABDOMEN: Unremarkable. MUSCULOSKELETAL: Moderate multilevel disc disease. CHEST WALL: Mastectomies. IMPRESSION: PEs throughout the lobar and segmental branches. Moderate right heartstrain with RV/LV ratio 1.8. Findings called at the time of interpretation. THIS IS AN ELECTRONICALLY VERIFIED FINAL REPORT 06/12/2024 2:11 AM - Electronically signed by Dayne Avila M.D. AR: JOSE A Report ID: [id number] Reading Location: [place] [address] us Winsome Healy MD IMG CT PROCEDURES Final Result * (ABNORMAL) Troponin T high-sensitivity 2-hour (06/11/2024 11:05 PM CDT) Trop T hs 84(H) <=14 ng/L Comment: Interpretive Data For further hscTnT resources including the diagnostic algorithm and an aid in interpretation, copy and paste this link: https://nrl.testcatalog.org/show/hsTrop Current Interpretive Data last revised 2020. Trop T hs delta 6 ng/L [facility] ([place]) Trop T hs interp Equivocal [facility] ([place]) Blood 06/11/2024 11:0 5 PM CDT 06/11/2024 11:08 PM CDT us Abby HERNANDEZ LAB BLOOD ORDERABLES Alea l Result JONATHAN XAVIER ([place]) 1 [facility] [place] [address] * (ABNORMAL) D-dimer, quantitative (06/11/2024 11:05 PM CDT) D-Dimer 1,885(H) <=499 ng/mL FEU JONATHAN XAVIER ([place]) Comment: Interpretive data FDA approved the D-dimer, in conjunction with a low or moderate pretest probability score, to exclude venous thromboembolic events (VTE) (PE and DVT) in outpatients when the D-dimer result is < 500 ng/ml FEU. Evidence supports using an age-adjusted D-dimer cut-off for outpatients older than 50 (age x 10) to improve specificity without sacrificing sensitivity. Example: age 68, VTE cut-off 680 ng/ml FEU. References; Schoutrupert HT et al. Brit Med J. 2013;346:f2492. Jenny SPRAGUE et al. Annals Int Med. 2015;163:701-11. Current interpretive data was last revised on 2019. Blood 06/11/2024 11:0 5 PM CDT 06/11/2024 11:08 PM CDT Winsome Healy MD LAB BLOOD ORDERABLES Final Resul t Performing Organization Address [facility] Co de Phone Number JONATHAN XAVIER ([place]) 1 [facility] [place] [address] * (ABNORMAL) aPTT (06/11/2024 11:04 PM CDT) aPTT 27(L) 28 - 38 sec JONATHAN [facility] ([place]) Comment: Interpretive Data Heparin therapeutic range: 66.0 - 100.0 seconds. Range based on correlation with therapeutic heparin activity range of 0.3 - 0.7 Units/mL. Current interpretive data was last revised on 2022. Blood 06/11/2024 11:0 4 PM CDT 06/12/2024 2:20 AM CDT Narrative [facility] ([place] - 06/12/2024 2:27 AM CDT Baseline prior to heparin initiation Winsome Healy MD LAB BLOOD ORDERABLES Final Resul t Performing Organization Address [facility] de Phone Number JONATHAN XAVIER ([place]) 1 [facility] [address] [place] [address] * Protime-INR (06/11/2024 11:04 PM CDT) PT 11.7 9.7 - 13.0 sec [facility]AN [facility] ([place]) INR 1.08 0.90 - 1.20 [facility]AN [facility] ([place]) Comment: Interpretive data Oral anticoagulant therapeutic ranges: Venous thromboembolism prophylaxis or treatment: 2.0-3.0 CARDIOLOGY Standard range: 2.0-3.0 High-intensity range: 2.5-3.5 Refer to indication-specific guidelines for appropriate target ranges for prosthetic heart valve replacement. Current interpretive data was last revised on 2019. Blood 06/11/2024 11:0 4 PM CDT 06/12/2024 2:38 AM CDT Narrative JONATHAN XAV[facility] ([place]) - 06/12/2024 2:43 AM CDT Baseline prior to heparin initiation us Winsome Healy MD LAB BLOOD ORDERABLES Final Resul t JONATHAN XAVIER ([place]) 1 [facility] [place] [address] * Blood culture Blood Peripheral (06/11/2024 8:59 PM CDT) Report Final Report: No growth Comment:Testing performed by : [facility], [address] [facility], [place]., [address] Blood (Peripheral) 06/11/2024 8:59 PM CDT 06/12/2024 1:28 AM CDT Narrative JONATHAN XAVIER ([place]) - 06/16/2024 7:00 AM CDT From a different site than #1. Draw Blood cultures before administration of Antibiotics Collection->Peripheral 1. Blood cultures are incubated for 4 days on a continuously monitored blood culture system. The first report of a negative culture is issued within 24 hours of receipt of the specimen in the laboratory. 2. Positive culture results are reported as soon as they are detected. 3. The most important factor for detection of microbes in the setting of bloodstream infection is the volume of blood submitted for culture. Failure to collect an optimal blood volume can result in false negative blood cultures. 4. For pediatric patients, the recommended blood volume to collect follows a weight based strategy. See the electronic test catalog for collection instructions. 5. For positive blood cultures, a rapid molecular test may be performed for organism identification using the monserrat ePlex blood culture identification panel for gram positive (BCID-GP) and gram negative (BCID-GN) organisms. This nucleic acid amplification test detects microbial DNA in positive blood culture broth. This assay has been cleared by the [place] Food and Drug Administration and its performance characteristics have been verified by the [facility] Microbiology Laboratory. For questions about this culture, contact the Microbiology Laboratory at [phone]. Interpretive data was last revised on 24. Abby HERNANDEZ LAB MICROBIOLOGY - GENERA L ORDERABLES Final Result JONATHAN XAVIER ([place]) 1 [facility] [place] [address] * Blood culture Blood Peripheral (06/11/2024 8:51 PM CDT) Report Final Report: No growth Comment:Testing performed by : [facility], 1 [place]., [address] Blood (Peripheral) 06/11/2024 8:51 PM CDT 06/12/2024 1:28 AM CDT Narrative JONATHAN XAVIER ([place]) - 06/16/2024 7:00 AM CDT Draw Blood cultures before administration of Antibiotics Collection->Peripheral 1. Blood cultures are incubated for 4 days on a continuously monitored blood culture system. The first report of a negative culture is issued within 24 hours of receipt of the specimen in the laboratory. 2. Positive culture results are reported as soon as they are detected. 3. The most important factor for detection of microbes in the setting of bloodstream infection is the volume of blood submitted for culture. Failure to collect an optimal blood volume can result in false negative blood cultures. 4. For pediatric patients, the recommended blood volume to collect follows a weight based strategy. See the electronic test catalog for collection instructions. 5. For positive blood cultures, a rapid molecular test may be performed for organism identification using the monserrat ePlex blood culture identification panel for gram positive (BCID-GP) and gram negative (BCID-GN) organisms. This nucleic acid amplification test detects microbial DNA in positive blood culture broth. This assay has been cleared by the [place] Food and Drug Administration and its performance characteristics have been verified by the [facility] Microbiology Laboratory. For questions about this culture, contact the Microbiology Laboratory at [phone]. Interpretive data was last revised on 24. us Abby HERNANDEZ LAB MICROBIOLOGY - GENERA L ORDERABLES Final Result JONATHAN XAVIER ([place]) 1 [facility] [place] [address] * XR Chest 1 Vw Portable (06/11/2024 8:45 PM CDT) Anatomical Region Laterality Modality Body, Chest N/A Computed Radiogr aphy 06/11/2024 9:58 PM CDT Narrative 06/11/2024 9:58 PM CDT EXAM DESCRIPTION: XR CHEST 1 VIEW REASON FOR STUDY: cough Pt BIBEMS with c/o SOB, pt satting in the 90's upon EMS arrival, received duoneb on route and pt began satting 98% along withy having a productive cough. Pt does not wear O2 at home, hx of bilateral masectomy and left hernia. Pt stopped smoking 7 months ago. Former smoker No surgery to chest No hx of cancer TECHNIQUE: Single radiographic view(s) of the chest. COMPARISON: None FINDINGS: LUNGS: Bilateral emphysema. No focal opacity, pleural effusion, or pneumothorax. HEART/MEDIASTINUM: Cardiac silhouette normal in size. Mediastinal and hilar contours appear normal. LINES/TUBES: None. BONES: No acute osseous abnormality. IMPRESSION: Bilateral emphysema. No acute cardiopulmonary abnormality. THIS IS AN ELECTRONICALLY VERIFIED FINAL REPORT 06/11/2024 9:58 PM - Electronically signed by Celeste Soto M.D. FT: FT Report ID: [id number] Reading Location: [id number] Procedure Note Celeste Tabares MD - 06/11/2024 EXAM DESCRIPTION: XR CHEST 1 VIEW REASON FOR STUDY: cough Pt BIBEMS with c/o SOB, pt satting in the 90's upon EMS arrival, received duoneb on route and pt began satting 98% along withy having a productive cough. Pt does not wear O2 at home, hx of bilateral masectomy and lefthernia. Pt stopped smoking 7 months ago. Former smoker No surgery to chestNo hx of cancer TECHNIQUE: Single radiographic view(s) of the chest. COMPARISON: None FINDINGS: LUNGS: Bilateral emphysema. No focal opacity, pleural effusion, or pneumothorax. HEART/MEDIASTINUM: Cardiac silhouette normal in size. Mediastinal andhilar contours appear normal. LINES/TUBES: None. BONES: No acute osseous abnormality. IMPRESSION: Bilateral emphysema. No acute cardiopulmonary abnormality. THIS IS AN ELECTRONICALLY VERIFIED FINAL REPORT 06/11/2024 9:58 PM - Electronically signed by Celeste Soto M.D. FT: FT Report ID: [id number] Reading Location: [place] [address] us Abby HERNANDEZ IMG XR PROCEDURES Final R esult * (ABNORMAL) Sepsis Lactate w/ Reflex (06/11/2024 8:32 PM CDT) [facility] Sepsis Lactate 4.3(C) 0.7 - 2.0 mmol/L Comment:Critical result call ed to and read back by fadi jha (er) on 06/11/2024 21:17:39 CDT to josi scott. Blood 06/11/2024 8:32 PM CDT 06/11/2024 8:38 PM CDT Abby HERNANDEZ LAB BLOOD ORDERABLES Alea l Result [facility] [place]) 1 [facility] [place] [address] * (ABNORMAL) Troponin T high-sensitivity series (baseline, 2hr, 4hr, 6hr) (06/11/2024 8:06 PM CDT) Pathologist [facility] Trop T hs 78(H) <=14 ng/L Comment: Interpretive Data For further hscTnT resources including the diagnostic algorithm and an aid in interpretation, copy and paste this link: https://nrl.testcatalog.org/show/hsTrop Current Interpretive Data last revised 2020. Blood 06/11/2024 8:06 PM CDT 06/11/2024 8:15 PM CDT Abby HERNANDEZ LAB BLOOD ORDERABLES Alea l Result Performing Organization Address City/[facility]/ZIP Co de Phone Number [facility] ([place]) [address] [place] [address] [place] [address] * Influenza A/B, RSV, and COVID-19 PCR Nasopharyngeal (06/11/2024 8:06 PM CDT) Pathologist [facility] COVID-19 RNA Negative Negative Influenza A RNA Negative Negative [facility] ([place]) Influenza B RNA Negative Negative [facility] ([place]) RSV RNA Negative Negative [facility] ([place]) Comment: Interpretive data: Testing performed by [facility]. This test is performed using the [employer] Xpert Xpress CoV-2/Flu/RSV plus assay. This is a multiplex, real- time reverse transcriptase PCR assay intended for the qualitative detection of nucleic acid from SARS-CoV-2, influenza A, influenza B, and respiratory syncytial virus. This assay has been cleared by the [place] Food and Drug administration. The performance characteristics have been verified by the [facility]. Results must be considered in the clinical context, and a negative result does not rule out infection. Interpretive Data last revised 2023 Nasopharyngeal 06/11/2024 8: 06 PM CDT 06/11/2024 8:15 PM CDT Narrative [facility] ([place]) - 06/11/2024 8:56 PM CDT Is the Patient experiencing symptoms consistent with COVID?->Yes Abby HERNANDEZ LAB MICROBIOLOGY - GENERA L ORDERABLES Final Result Performing Organization Address City/[facility]/ZIP Co de Phone Number JONATHAN XAVIER ([place]) 1 [facility] [place] [address] * (ABNORMAL) eGFR (06/11/2024 8:06 PM CDT) eGFR 53(L) >=60 mL/min/1. 73 m2 Comment: Interpretive Data Reference Interval Normal >/= 90 mL/min/1.73m2 Mildly decreased* 60 - 89 mL/min/1.73m2 Mildly to moderately decreased 45 - 59 mL/min/1.73m2 Moderately to severely decreased 30 - 44 mL/min/1.73m2 Severely decreased 15 - 29 mL/min/1.73m2 Kidney Failure < 15 mL/min/1.73m2 *Relative to young adult level Estimated glomerular filtration rate is determined by the 2020 CKD-EPI equation recommended by the National Kidney Foundation (A Unifying Approach to GFR Estimation: Recommendations of the NKF-ASK Task Force on Reassessing the Inclusion of Race in Diagnosing Kidney Disease, JASN 2020). The CKD-EPI equation should not be used for patients with unstable renal function and has not been validated in children and those over 70. Current interpretive data was last reviewed 2021. Blood 06/11/2024 8:06 PM CDT 06/11/2024 8:15 PM CDT us Abby HERNANDEZ LAB BLOOD ORDERABLES Alea alexandre Result JONATHAN [facility] ([place]) 1 [facility] [place] [address] * (ABNORMAL) Differential, auto (06/11/2024 8:06 PM CDT) Neutrophil abs 9.0(H) 1.5 - 6.5 K/cumm Imm gran abs 0.1 0.0 - 0.1 K/cumm [facility] ([place]) Lymphocyte abs 2.4 0.8 - 3.3 K/cumm [facility] ([place]) Monocyte abs 0.6 0.2 - 0.8 K/cumm [facility] ([place]) Eosinophil abs 0.1 0.0 - 0.5 K/cumm [facility] ([place]) Basophil abs 0.0 0.0 - 0.1 K/cumm [facility] ([place]) Neutrophil pct 73.9 % [facility] ([place]) Comment: Interpretive Data Percent cell count reference ranges are not reported, since discordance with absolute values may lead to misinterpretation of CBC data. Current Interpretive Data was last revised on 2017. Imm gran pct 0.7 % [facility] ([place]) Comment: Interpretive Data Percent cell count reference ranges are not reported, since discordance with absolute values may lead to misinterpretation of CBC data. Current Interpretive Data was last revised on 2017. Lymphocyte pct 20.0 % [facility] ([place]) Comment: Interpretive Data Percent cell count reference ranges are not reported, since discordance with absolute values may lead to misinterpretation of CBC data. Current Interpretive Data was last revised on 2017. Monocyte pct 4.7 % [facility] ([place]) Comment: Interpretive Data Percent cell count reference ranges are not reported, since discordance with absolute values may lead to misinterpretation of CBC data. Current Interpretive Data was last revised on 2017. Eosinophil pct 0.4 % [facility] ([place]) Comment: Interpretive Data Percent cell count reference ranges are not reported, since discordance with absolute values may lead to misinterpretation of CBC data. Current Interpretive Data was last revised on 2017. Basophil pct 0.3 % [facility] ([place]) Comment: Interpretive Data Percent cell count reference ranges are not reported, since discordance with absolute values may lead to misinterpretation of CBC data. Current Interpretive Data was last revised on 2017. Blood 06/11/2024 8:06 PM CDT 06/11/2024 8:15 PM CDT us Abby HERNANDEZ LAB BLOOD ORDERABLES Alea alexandre Result JONATHAN DUC ([place]) 1 [facility] Department [place] [address] * (ABNORMAL) Pro B-type natriuretic peptide (06/11/2024 8:06 PM CDT) NT-proBNP 7,917(H) <=450 pg/mL Comment: Interpretive Comments: A. Dyspnea in Acute Care Setting All Ages: < 300 pg/ml, acute heart failure unlikely. < 50 yrs: 300 - 450 pg/ml, further investigation warranted. > 450 pg/ml, acute heart failure likely. 50 - 74 yrs: 300 - 900 pg/ml, further investigation warranted. > 900 pg/ml, acute heart failure likely . > or = 75 yrs: 450 - 1800 pg/ml, further investigation warranted. > 1800 pg/ml, acute heart failure likely. B. Non-acute Setting < 75 yrs < 125 pg/ml, rules out heart failure. > or = 125 pg/ml, further investigation warranted. > or = 75 yrs < 450 pg/ml, rules out heart failure. > or = 450 pg/ml, further investigation warranted. - Knowledge of each individual patient's NT-proBNP range may be more useful than using similar cut-points for every patient. Please note that marked elevations in NT-proBNP levels may be observed in state other than Left Ventricular Congestive Failure, including: acute coronary syndromes, right heart strain/failure (including pulmonary embolism and cor pulmonale), critical illness, renal failure, as well as advanced age. - References: 1. Jacque CASTILLO et.al. Eur Heart J. 2006:27:330-337. 2. Cassandra RW, Soriano AM. J. AM Karly Cardiol: Cardiovasc Imag. 2009;2: 216- 225. Interpretive Data Last Revised Date: 2017. Blood 06/11/2024 8:06 PM CDT 06/11/2024 8:15 PM CDT Abby HERNANDEZ LAB BLOOD ORDERABLES Alea alexandre Result JONATHAN XAVIER ([place]) 1 [facility] Department of Laboratories [place], [place] [id number] * (ABNORMAL) CBC with auto differential (06/11/2024 8:06 PM CDT) WBC 12.2(H) 3.8 - 9.9 K/cumm Hgb 11.1(L) 11.9 - 15.5 g/dL JONATHAN XAVIER ([place]) Hct 34.3(L) 35.6 - 45.5 % JONATHAN XAVIER ([place]) Plt 306 150 - 400 K/cumm [facility] ([place]) MPV 9.4 9.1 - 12.3 fL JONATHAN XAVIER ([place]) RBC 3.54(L) 3.90 - 5.20 M/cumm [facility] ([place]) MCV 96.9(H) 81.3 - 96.4 fL JONATHAN [facility] ([place]) MCH 31.4 27.1 - 33.3 pg JONATHAN [facility] ([place]) MCHC 32.4 32.3 - 35.7 g/dL [facility] ([place]) RDW CV 13.1 11.1 - 14.9 % [facility] ([place]) RDW SD 46.6 35.7 - 48.1 fL [facility] ([place] NRBC abs 0.00 0.00 - 0.01 K/cumm [facility] ([place]) Blood 06/11/2024 8:06 PM CDT 06/11/2024 8:15 PM CDT us Abby HERNANDEZ LAB BLOOD ORDERABLES Alea alexandre Result Performing Organization Address City/State/[facility] Co de Phone Number [place]AN [place] 1 [facility] Department of Laboratories [place] [id number] * (ABNORMAL) Hemoglobin A1c (06/11/2024 8:06 PM CDT) Hgb A1C 6.1(H) 4.0 - 5.6 % Estimated Average Glucose 128 mg/dL JONATHAN [facility] ([place]) Comment: The ADA recommends reporting an estimated Average Glucose (eAG) with all Hemoglobin A1c results using the equation derived from a study of 507 normal and diabetic adults. Minority populations were underrepresented and children were not included. (Diabetes Care 31:7957-7467, 2008). The eAG is not equivalent to a fasting glucose. Blood 06/11/2024 8:06 PM CDT 06/12/2024 2:38 AM CDT us Winsome Healy MD LAB BLOOD ORDERABLES Final Resul t JONATHAN XAVIER ([place]) 1 [facility] Department [place] [address] * (ABNORMAL) Comprehensive metabolic panel (06/11/2024 8:06 PM CDT) Sodium 131(L) 135 - 145 mmol/L Potassium, pl 5.5(H) 3.3 - 4.9 mmol/L [facility] ([place]) Comment:Slightly Hemolyzed S pecimen. Results may be affected. Chloride 98 97 - 110 mmol/L [facility] ([place]) CO2 15(L) 22 - 32 mmol/L [facility] ([place]) Anion gap 18(H) 2 - 15 mmol/L [facility] ([place]) BUN 15 6 - 25 mg/dL [facility] ([place]) Creatinine 1.07 0.60 - 1.10 mg/dL [facility] ([place]) Glucose 224(H) 70 - 199 mg/dL [facility] ([place]) Comment: Interpretive Data Fasting glucose >/= 126 mg/dl is diagnostic for diabetes. Fasting is defined as no caloric intake for at least 8 hours. Fasting glucose between 100 mg/dl to 125 mg/dl is diagnostic of prediabetes. In a patient with classic symptoms of hyperglycemia or hyperglycemic crisis, a random glucose >/= 200 mg/dl is diagnostic for diabetes. In the absence of unequivocal hyperglycemia, results should be confirmed by repeat testing. The classification and Diagnosis of Diabetes Diabetes Care 2021; 46: S19-S40. Current interpretive data was last revised 2022. Calcium 9.1 8.5 - 10.3 mg/dL [facility] ([place]) Bilirubin, total <0.2 0.1 - 1.2 mg/dL [facility] ([place]) Protein, pl 7.3 6.5 - 8.5 g/dL [facility] ([place]) Albumin 3.8 3.5 - 5.0 g/dL [facility] ([place]) Alk phos 81 40 - 130 Units/L [facility] ([place]) ALT 9 7 - 45 Units/L [facility] ([place]) Comment:Hemolysis present. Results may be affected. AST 18 10 - 45 Units/L [facility] ([place]) Comment: Hemolysis present. Results may be affected. Slightly Hemolyzed Specimen Blood 06/11/2024 8:06 PM CDT 06/11/2024 8:15 PM CDT us Abby HERNANDEZ LAB BLOOD ORDERABLES Alea l Result JONATHAN [facility] ([place]) 1 [facility] Department [place] [address] * ECG 12 lead (06/11/2024 7:41 PM CDT) 06/11/2024 7:41 PM CDT Narrative [facility] - 06/12/2024 7:17 AM CDT Vent Rate: 102 bpm RR Interval: 583 msec MN Interval: 146 msec QRS Duration: 74 msec QT Interval: 334 msec QTC Interval: 393 msec P-R-T [place]: 35 - -12 - 7 degrees IMPRESSION: SINUS TACHYCARDIA POSSIBLE RIGHT VENTRICULAR CONDUCTION DELAY [RSR (QR) IN V1/V2] ABNORMAL RHYTHM ECG Electronically Signed By: Rafal Pacheco MD us Brien Berry MD ECG ORDERABLES Final Resul t Performing Organization Address City/[facility] Co de Phone Number [facility] from Last 3 Months Insurance [facility] Advance Directives For more information, please contact: [phone] * Full Code (Latest Code Status on File) Date Activated Date Inactivated Comments 06/12/2024 5:06 AM 06/13/2024 11:16 PM * Full Code Date Activated Date Inactivated Comments 06/12/2024 4:48 AM 06/12/2024 5:06 AM Care Teams Roof Bolter Operator Relationship Specialty Start Date End Date Jose Miguel Stewart MD [address] [place] [address] PCP - General Emergency Medicine 06/11/24
--- OUTSIDE RECORDS SUMMARY | 2024-06-21 12:21 | XMS_ITS | Referral Summary ---
[facility] Address [address] [place] [address] Care Team Providers Care Pillar Man Name Role Phone Jose Miguel Stewart MD Primary Care Provide r Encounters Date Type Department Care Team Description 06/20/2024 [facility] Post Discharge Follow up phone call [facility] [address] [place] [id number] Yoli Brennan 06/11/2024 7:36 PM CDT - 06/13/2024 6:30 PM CDT Hospital Encounter [facility] [address] [place] [phone] Winsome Healy MD Lo Bianco, Salvador, MD Nations, Matthew Austin, Shortness of breath (Primary Dx); Hyperglycemia; Acute pulmonary embolism with acute cor pulmonale, unspecified pulmonary embolism type (HCC) Discharge Disposition: Discharge to home or self care from Last 3 Months Allergies No known active allergies Medications alendronate [...] tobacco abuse 06/13/2024 Shortness of breath 06/12/2024 Immunizations Immunization Administration Dates Next Due Influenza, Unspecified 01/16/2024 Social History Tobacco Use Types Packs/Day Years Used Date Smoking Tobacco: Former Cigarettes Q uit: 2023 Smokeless Tobacco: Never Tobacco Cessation:Counseling Given: No [facility] Utilities Answer Date Recorded In the past 12 months has th e electric, gas, oil, or water company threatened [...] often do you attend chur ch or sikh services? Never 06/12/2024 Do you belong to any clubs o r organizations such as orthodoxy groups, unions, fraternal or athletic groups, or [...] any time in the past 12 m [facility], were you homeless or living in a [...] on file Legal Sex Female 2:43 PM [employer] Gender Identity Not on file Sexual Orientation [...] 06/12/2024 4:43 AM CDT Plan of Treatment Not on file Procedures Procedure Name Priority Date/Time Associated Diagnosis [...] CRITICAL CARE Routine 06/12/2024 3:33 AM CDT [place] CRITICAL CARE ILL/INJURED PATIENT INIT 30-74 MIN [...] 06/13/2024 5:58 AM CDT Narrative JONATHAN XAVIER ([place]) - 06/13/2024 6:24 AM CDT Do not draw lab from IV line that is actively infusing heparin. Use the opposite arm. If arm with actively infusing heparin must be used, pause the infusion for at least 2 minutes, and draw specimen below the IV site. For patients with a central venous catheter (CVC), lab must be drawn peripherally (not from CVC). Neville Hdz Zo DO LAB BLOOD ORDERABLES F inal Result JONATHAN XAVIER ([place]) 1 [facility] [place] [address] * (ABNORMAL) eGFR (06/13/2024 12:19 AM CDT) Pathologist [facility] [place] eGFR 50(L) >=60 mL/min/1. 73 m2 Comment: [...] MD LAB BLOOD ORDERABLES Final Resul t [facility] ([place]) 1 [facility] [place] [address] * (ABNORMAL) Differential, auto (06/13/2024 12:19 AM [...] Neutrophil pct 63.8 % [facility] ([place]) Comment: Interpretive [...] Final Resul t JONATHAN XAVIER ([place]) 1 [facility] [place] [address] * (ABNORMAL) CBC with auto differential (06/13/2024 12:19 AM CDT) WBC 15.4(H) 3.8 - 9.9 K/cumm Hgb 9.3(L) 11.9 - 15.5 g/dL [facility] ([place]) Hct 28.4(L) 35.6 - 45.5 % [facility] ([place] Plt 267 150 - 400 K/cumm [facility] ([place]) MPV 9.1 9.1 - 12.3 fL [facility] ([place] RBC 2.97(L) 3.90 - 5.20 M/cumm [facility] ([place]) MCV 95.6 81.3 - 96.4 fL [facility] ([place]) MCH 31.3 27.1 - 33.3 pg [facility] ([place]) MCHC 32.7 32.3 - 35.7 g/dL [facility] ([place]) RDW CV 13.4 11.1 - 14.9 % [facility] ([place] RDW SD 45.8 35.7 - 48.1 fL [facility] ([place]) NRBC abs 0.00 0.00 - 0.01 K/cumm [facility] ([place]) Blood 06/13/2024 12:1 9 AM CDT 06/13/2024 12:53 AM CDT Domingo Emery MD LAB BLOOD ORDERABLES Final Result [facility] ([place]) 1 [facility] [place] [address] * (ABNORMAL) aPTT (06/13/2024 12:19 AM CDT) aPTT 90(H) 28 - 38 sec [facility] ([place]) Comment: Interpretive Data Heparin therapeutic range: 66.0 - 100.0 seconds. Range based on correlation with therapeutic heparin activity range of 0.3 - 0.7 Units/mL. Current interpretive data was last revised on 2022. Blood 06/13/2024 12:1 9 AM CDT 06/13/2024 12:53 AM CDT Narrative [facility] ([place]) - 06/13/2024 1:26 AM CDT Do not [...] LAB BLOOD ORDERABLES F inal Result [facility] ([place]) 1 [facility] [place] [address] * (ABNORMAL) Basic metabolic panel (06/13/2024 12:19 AM CDT) Sodium 137 135 - 145 mmol/L Potassium, pl 3.8 3.3 - 4.9 mmol/L [facility] ([place]) Chloride 103 97 - 110 mmol/L [facility] ([place]) CO2 21(L) 22 - 32 mmol/L [facility] ([place]) Anion gap 13 2 - 15 mmol/L [facility] ([place]) BUN 26(H) 6 - 25 mg/dL [facility] ([place]) Creatinine 1.13(H) 0.60 - 1.10 mg/dL [...] classification and Diagnosis of Diabetes Diabetes Care 202; 46: S19-S40. Current interpretive data was last revised 2022. Calcium 8.3(L) 8.5 - 10.3 mg/dL [facility] ([place]) Blood 06/13/2024 12:1 9 AM CDT 06/13/2024 12:53 AM CDT us Domingo Emery MD LAB BLOOD ORDERABLES Final Result JONATHAN XAVIER ([place]) 1 [facility] [place] [address] * ABO / Rh Confirmation Testing (06/12/2024 6:59 PM CDT) ABO/Rh Confirmation A Positive [facility] Blood 06/12/2024 6:59 PM CDT 06/12/2024 7:04 PM CDT us Domingo Emery MD LAB BLOOD ORDERABLES Final Result Performing Organization Address [facility] Co de Phone Number JONATHAN XAVIER ([place]) 1 [facility] [place] [address] [facility] * (ABNORMAL) aPTT (06/12/2024 5:04 PM CDT) aPTT 66(H) 28 - 38 sec JONATHAN XAVIER ([place]) Comment: Interpretive Data Heparin therapeutic range: 66.0 - 100.0 seconds. Range based on correlation with therapeutic heparin activity range of 0.3 - 0.7 Units/mL. Current interpretive data was last revised on 2022. Blood 06/12/2024 5:04 PM CDT 06/12/2024 5:09 PM CDT us Domingo Emery MD LAB BLOOD ORDERABLES Final Result Performing Organization Address City/[facility]/ZIP Co de Phone Number JONATHAN XAVIER ([place]) 1 [facility] [place] [address] * US Vein Duplex Lower Extremity Bilateral [...] Donn Valle M.D. KR: ANDRE Report ID: [id number] Reading Location: [place] [address] Procedure Note Donn Valle MD - 06/12/2024 [...] 3:49 PM - Electronically signed by Donn POWELL: ANDRE Report ID: [id number] Reading Location: [place] [address] Domingo Emery MD [facility] US PROCEDURES Final Re sult * (ABNORMAL) aPTT (06/12/2024 10:50 AM CDT) aPTT 20(L) 28 - 38 sec JONATHAN XAVIER ([place]) Comment: Interpretive Data Heparin therapeutic range: 66.0 - 100.0 seconds. Range based on correlation with therapeutic heparin activity range of 0.3 - 0.7 Units/mL. Current interpretive data was last revised on 2022. Blood 06/12/2024 10:5 0 AM CDT 06/12/2024 10:56 AM CDT Narrative JONATHAN XAVIER ([place]) - 06/12/2024 11:11 AM CDT Collect immediately after alteplase infusion ends and then every 2 hours until aPTT is less than 76 seconds. Once aPTT is less than 76 seconds, alert provider to discontinue order. us Winsome Healy MD LAB BLOOD ORDERABLES Final Resul t JONATHAN XAVIER ([place]) [address] [place] [address] [place] [address] * TRANSTHORACIC ECHO (TTE) COMPLETE W DOPPLER/CF W CONTRAST (06/12/2024 10:37 AM CDT) Pathologist [facility] [place] LV EF 62 % CONS SCIMAGE Anatomical Region Laterality Modality Ultrasound 06/12/2024 10:1 3 AM CDT Narrative 06/12/2024 2:08 PM CDT [address] [address] Echocardiogram Report Patient Name: ANSON MILLER M : 1945 Study Date: 06/12/2024 10:13:02 AM Gender: F Tech: NL Location: [id number] Ref Provider: JACEK JAMISON Height(Cm): 142 BSA: [...] regurgitation. Electronically Signed By: Jak Wilson MD [facility] 06/12/2024 2:08:19 PM CDT Procedure Note Jak Wilson MD - 06/12/[address] [address] Echocardiogram Report Patient Name: ANSON MILLER M : 1945 Study Date: 06/12/2024 10:13:02 AM Gender: F Tech: Location: [id number] Ref Provider: JACEK JAMISON Height(Cm): 142 BSA: [...] regurgitation. Electronically Signed By: Jak Wilson MD [facility] 06/12/2024 2:08:19 PM CDT Jacek Jamison MD CV ECHO PROCEDURES Fi nal Result * (ABNORMAL) aPTT (06/12/2024 8:46 AM CDT) aPTT 20(L) 28 - 38 sec [facility]ATHAN X[facility]IER ([place]) Comment: Interpretive Data Heparin therapeutic range: 66.0 - 100.0 seconds. Range based on correlation with therapeutic heparin activity range of 0.3 - 0.7 Units/mL. Current interpretive data was last revised on 2022. Blood 06/12/2024 8:46 AM CDT 06/12/2024 8:51 AM CDT Narrative JONATHAN XAVIER ([place]) - 06/12/2024 9:24 AM CDT Collect immediately after alteplase infusion ends and then every 2 hours until aPTT is less than 76 seconds. Once aPTT is less than 76 seconds, alert provider to discontinue order. Winsome Healy MD LAB BLOOD ORDERABLES Final Resul t Performing Organization Address City/[facility]/ZIP Co de Phone Number JONATHAN XAVIER ([place]) 1 [facility] [place] [address] * ABO/Rh (06/12/2024 7:32 AM CDT) ABO/Rh A Positive Blood 06/12/2024 7:32 AM CDT 06/12/2024 7:40 AM CDT Narrative JONATHAN DUC ([place]) - 06/12/2024 8:21 AM CDT Has the patient had Daratumumab or Isatuximab in the past 6 months?->Unknown Domingo Emery MD LAB BLOOD BANK TEST ORDERA BLES Final Result Performing Organization Address [facility] Co de Phone Number JONATHAN XAVIER ([place]) 1 [facility] [place] [address] * Antibody screen (06/12/2024 7:32 AM CDT) [place], indirect, Gel Interpretation Negative ABSC Blood 06/12/2024 7:32 AM CDT 06/12/2024 7:40 AM CDT Narrative [facility] X[facility] ([place]) - 06/12/2024 8:21 AM CDT Has the patient had Daratumumab or Isatuximab in the past 6 months?->Unknown Domingo Emery MD LAB BLOOD BANK TEST ORDERA BLES Final Result JONATHAN XAVIER ([place]) 1 [facility] [place] [address] * (ABNORMAL) aPTT (06/12/2024 6:34 AM CDT) aPTT 41(H) 28 - 38 sec [facility] Comment: Interpretive Data Heparin therapeutic range: 66.0 - 100.0 seconds. Range based on correlation with therapeutic heparin activity range of 0.3 - 0.7 Units/mL. Current interpretive data was last revised on 2022. Blood 06/12/2024 6:34 AM CDT 06/12/2024 6:42 AM CDT Narrative JONATHAN [facility] ([place]) - 06/12/2024 6:54 AM CDT Collect immediately after alteplase infusion ends and then every 2 hours until aPTT is less than 76 seconds. Once aPTT is less than 76 seconds, alert provider to discontinue order. us Winsome Healy MD LAB BLOOD ORDERABLES Final Resul t Performing Organization Address City/[facility]/ZIP Co de Phone Number JONATHAN [facility] ([place]) 1 [facility] [place] [address] * (ABNORMAL) Sodium level (06/12/2024 6:34 AM CDT) Pathologist [facility] Sodium 134(L) 135 - 145 mmol/L Blood 06/12/2024 6:34 AM CDT 06/12/2024 6:42 AM CDT us Jacek Jamison MD LAB BLOOD ORDERABLES Final Result JONATHAN [facility] ([place]) 1 [facility] [place] [address] * (ABNORMAL) Potassium (06/12/2024 6:34 AM CDT) Potassium, pl 5.7(H) 3.3 - 4.9 mmol/L Comment:Moderately Hemolyzed Specimen. Results may be affected. Blood 06/12/2024 6:34 AM CDT 06/12/2024 6:42 AM CDT us Jacek Jamison MD LAB BLOOD ORDERABLES Final Result JONATHAN XAVIER ([place]) [address] [place] [address] * Phosphorus (06/12/2024 6:34 AM CDT) Phosphorus, pl 3.7 2.3 - 4.5 mg/dL Blood 06/12/2024 6:34 AM CDT 06/12/2024 6:42 AM CDT us Jacek Jamison MD LAB BLOOD ORDERABLES Final Result Performing Organization Address City/[facility] Co de Phone Number JONATHAN XAVIER ([place]) [address] [place] [address] * Magnesium (06/12/2024 6:34 AM CDT) Magnesium 2.3 1.4 - 2.5 mg/dL Blood 06/12/2024 6:34 AM CDT 06/12/2024 6:42 AM CDT us Jacek Jamison MD LAB BLOOD ORDERABLES Final Result Performing Organization Address City/[facility] Co de Phone Number JONATHAN XAVIER ([place]) 1 [facility] [place] [address] * Critical Care (06/12/2024 3:33 AM CDT) [...] plan with the ICU team and other medical/behavioral health consultant staff, making frequent assessments and decisions [...] spent time documenting in the medical record Jacek Jamison MD IN CLINIC/BEDSIDE ORD ERABLES Final Result * [place] CRITICAL CARE ILL/INJURED PATIENT INIT 30-74 MIN [...] Avila M.D. AR: JOSE A Report ID: [id number] Reading Location: [id number] Procedure Note Dayne Avila MD - 06/12/2024 [...] Avila M.D. AR: JOSE A Report ID: [id number] Reading Location: [id number] us Winsome Healy MD IMG CT PROCEDURES [...] ORDERABLES Alea l Result Performing Organization Address City/[facility]/ZIP Co de Phone Number JONATHAN XAVIER ([place]) [address] [place] [address] [place] [address] * (ABNORMAL) D-dimer, quantitative (06/11/2024 11:05 PM CDT) D-Dimer 1,885(H) <=499 ng/mL FEU [facility] ([place]) Comment: Interpretive data FDA approved the [...] 68, VTE cut-off 680 ng/ml FEU. References; Schouten HT et al. Brit Med J. 2013;346:f2492. Jenny et al. Annals Int Med. 2015;163:701-11. Current interpretive data was last revised on 2019. Blood 06/11/2024 11:0 5 PM CDT 06/11/2024 11:08 PM CDT us Winsome Healy MD LAB BLOOD ORDERABLES Final Resul t Performing Organization Address City/[facility]/ZIP Co de Phone Number JONATHAN XAVIER ([place]) 1 [facility] [place] [address] * (ABNORMAL) aPTT (06/11/2024 11:04 PM CDT) aPTT 27(L) 28 - 38 sec [facility] ([place]) Comment: Interpretive Data Heparin therapeutic range: 66.0 - 100.0 seconds. Range based on correlation with therapeutic heparin activity range of 0.3 - 0.7 Units/mL. Current interpretive data was last revised on 2022. Blood 06/11/2024 11:0 4 PM CDT 06/12/2024 2:20 AM CDT Narrative JONATHAN XAVIER ([place]) - 06/12/2024 2:27 AM CDT Baseline prior to heparin initiation us Winsome Healy MD LAB BLOOD ORDERABLES Final Resul t JONATHAN XAVIER ([place]) 1 [facility] [place] [address] * Protime-INR (06/11/2024 11:04 PM CDT) PT 11.7 9.7 - 13.0 sec JONATHAN XAVIER ([place]) INR 1.08 0.90 - 1.20 JONATHAN XAVIER ([place]) Comment: Interpretive data Oral anticoagulant therapeutic ranges: [...] BLOOD ORDERABLES Final Resul t JONATHAN XAVIER ([place]) 1 [facility] [place] [address] * Blood culture Blood Peripheral (06/11/2024 8:59 PM CDT) Report Final Report: No growth Comment:Testing performed by : [facility], [address] [place]., [address] Blood (Peripheral) 06/11/2024 8:59 PM CDT 06/12/2024 [...] performance characteristics have been verified by the [facility] Microbiology Laboratory. For questions about this culture, contact the Microbiology Laboratory at [phone]. Interpretive data was last revised on 24. Abby HERNANDEZ LAB MICROBIOLOGY - GENERA L ORDERABLES Final Result JONATHAN XAVIER ([place]) 1 [facility] [place] [address] * Blood culture Blood Peripheral (06/11/2024 8:51 PM CDT) Report Final Report: No growth Comment:Testing performed by : [facility], [address] [place]., [address] Blood (Peripheral) 06/11/2024 8:51 PM CDT 06/12/2024 1:28 AM CDT Narrative JONATHAN XAVIER ([place]) - 06/16/2024 7:00 AM CDT Draw Blood [...] performance characteristics have been verified by the [facility] Microbiology [facility]. For questions about this culture, contact the Microbiology Laboratory at [phone]. Interpretive data was last revised on 24. Abby HERNANDEZ LAB MICROBIOLOGY - GENERA L ORDERABLES Final Result JONATHAN XAVIER ([place]) 1 [facility] [place] [address] * XR Chest 1 Vw Portable (06/11/2024 [...] Celeste Soto M.D. FT: FT Report ID: [id number] Reading Location: [id number] Procedure Note Celeste Tabares MD - 06/11/2024 [...] Celeste Soto M.D. FT: FT Report ID: [id number] Reading Location: [place] [address] Abby HERNANDEZ IMG XR PROCEDURES Final R esult * (ABNORMAL) Sepsis Lactate w/ Reflex (06/11/2024 8:32 PM CDT) [facility] Sepsis Lactate 4.3(C) 0.7 - 2.0 mmol/L Comment:Critical result call ed to and read back by fadi jha (er) on 06/11/2024 21:17:39 CDT to josi scott. Blood 06/11/2024 8:32 PM CDT 06/11/2024 8:38 PM CDT Abby HERNANDEZ LAB BLOOD ORDERABLES Alea l Result JONATHAN XAVIER ([place]) [address] [place] [address] [place] [address] * (ABNORMAL) Troponin T high-sensitivity series (baseline, 2hr, 4hr, 6hr) (06/11/2024 8:06 PM CDT) [facility] Trop T hs 78(H) <=14 ng/L Comment: Interpretive Data For further hscTnT resources including the diagnostic algorithm and an aid in interpretation, copy and paste this link: https://nrl.testcatalog.org/show/hsTrop Current Interpretive Data last revised 2020. Blood 06/11/2024 8:06 PM CDT 06/11/2024 8:15 PM CDT Abby HERNANDEZ LAB BLOOD ORDERABLES Alea l Result JONATHAN XAVIER ([place]) 1 [facility] [place] [address] * Influenza A/B, RSV, and COVID-19 PCR Nasopharyngeal (06/11/2024 8:06 PM CDT) [facility] COVID-19 RNA Negative Negative Influenza A RNA Negative Negative [facility] ([place]) Influenza B RNA Negative Negative [facility] ([place]) RSV RNA Negative Negative JONATHAN XAVIER ([place]) Comment: Interpretive data: Testing performed by [facility]. This test is performed using the [employer]Center[employer] Xpert Xpress CoV-2/Flu/RSV plus assay. This is a multiplex, real- time reverse transcriptase PCR assay intended for the qualitative detection of nucleic acid from SARS-CoV-2, influenza A, influenza B, and respiratory syncytial virus. This assay has been cleared by the [place] Food and Drug administration. The performance characteristics have been verified by the [facility]. Results must be considered in the clinical context, and a negative result does not rule out infection. Interpretive Data last revised 2023 Nasopharyngeal 06/11/2024 8: 06 PM CDT 06/11/2024 8:15 PM CDT Narrative JONATHAN XAVIER ([place]) - 06/11/2024 8:56 PM CDT Is the Patient experiencing symptoms consistent with COVID?->Yes Abby HERNANDEZ LAB MICROBIOLOGY - GENERA L ORDERABLES Final Result JONATHAN XAVIER ([place]) 1 [facility] [place] [address] * (ABNORMAL) eGFR (06/11/2024 8:06 PM CDT) [...] us Abby HERNANDEZ LAB BLOOD ORDERABLES Alea baldomero Result JONATHAN [facility] ([place]) 1 [facility] [place] [address] * (ABNORMAL) Differential, auto (06/11/2024 8:06 PM CDT) Neutrophil abs 9.0(H) 1.5 - 6.5 K/cumm Imm gran abs 0.1 0.0 - 0.1 K/cumm [facility] ([place]) Lymphocyte abs 2.4 0.8 - 3.3 K/cumm [facility] ([place]) Monocyte abs 0.6 0.2 - 0.8 K/cumm [facility] ([place]) Eosinophil abs 0.1 0.0 - 0.5 K/cumm [facility] ([place]) Basophil abs 0.0 0.0 - 0.1 K/cumm [facility] ([place]) Neutrophil pct 73.9 % [facility] ([place]) Comment: Interpretive Data Percent cell count reference [...] revised on 2017. Eosinophil pct 0.4 % [facility] ([place]) Comment: Interpretive Data Percent cell count reference ranges are not reported, since discordance with absolute values may lead to misinterpretation of CBC data. Current Interpretive Data was last revised on 2017. Basophil pct 0.3 % JONATHAN XAVIER ([place]) Comment: Interpretive Data Percent cell count reference ranges are not reported, since discordance with absolute values may lead to misinterpretation of CBC data. Current Interpretive Data was last revised on 2017. Blood 06/11/2024 8:06 PM CDT 06/11/2024 8:15 PM CDT us Abby HERNANDEZ LAB BLOOD ORDERABLES Alea l Result JONATHAN XAVIER ([place]) 1 [facility] [place] [address] * (ABNORMAL) Pro B-type natriuretic peptide (06/11/2024 [...] et.al. Eur Heart J. 2006:27:330-337. 2. Cassandra MARTINEZ, Bo TRAN. J. AM Karly Cardiol: Cardiovasc Imag. 2009;2: 216- 225. Interpretive Data Last Revised Date: 2017. Blood 06/11/2024 8:06 PM CDT 06/11/2024 8:15 PM CDT us Abby HERNANDEZ LAB BLOOD ORDERABLES Alea alexandre Result [facility] ([place]) 1 [facility] [place] [address] * (ABNORMAL) CBC with auto differential (06/11/2024 8:06 PM CDT) WBC 12.2(H) 3.8 - 9.9 K/cumm Hgb 11.1(L) 11.9 - 15.5 g/dL [facility] ([place]) Hct 34.3(L) 35.6 - 45.5 % [facility] ([place]) Plt 306 150 - 400 K/cumm [facility] ([place]) MPV 9.4 9.1 - 12.3 fL [facility] ([place]) RBC 3.54(L) 3.90 - 5.20 M/cumm [facility] ([place]) MCV 96.9(H) 81.3 - 96.4 fL [facility] ([place]) MCH 31.4 27.1 - 33.3 pg [facility] ([place]) MCHC 32.4 32.3 - 35.7 g/dL [facility] ([place]) RDW CV 13.1 11.1 - 14.9 % [facility] ([place]) RDW SD 46.6 35.7 - 48.1 fL [facility] ([place]) NRBC abs 0.00 0.00 - 0.01 K/cumm [facility] ([place]) Blood 06/11/2024 8:06 PM CDT 06/11/2024 8:15 PM CDT us Abby HERNANDEZ LAB BLOOD ORDERABLES Alea l Result Performing Organization Address [facility] Co de Phone Number [facility] 1 [place] [address] * (ABNORMAL) Hemoglobin A1c (06/11/2024 8:06 PM CDT) Hgb A1C 6.1(H) 4.0 - 5.6 % Estimated Average Glucose 128 mg/dL [facility] ([place]) Comment: The ADA recommends reporting an estimated Average Glucose (eAG) with all Hemoglobin A1c results using the equation derived from a study of 507 normal and diabetic adults. Minority populations were underrepresented and children were not included. (Diabetes Care 31:0241-1827, 2008). The eAG is not equivalent to a fasting glucose. Blood 06/11/2024 8:06 PM CDT 06/12/2024 2:38 AM CDT Winsome Healy MD LAB BLOOD ORDERABLES Final Resul t Performing Organization Address [facility] Co de Phone Number [facility] ([place]) 1 [place] [address] * (ABNORMAL) Comprehensive metabolic panel (06/11/2024 8:06 PM CDT) Sodium 131(L) 135 - 145 mmol/L Potassium, pl 5.5(H) 3.3 - 4.9 mmol/L [facility] ([place]) Comment:Slightly Hemolyzed S pecimen. Results may be affected. Chloride 98 97 - 110 mmol/L [facility] ([place]) CO2 15(L) 22 - 32 mmol/L [facility] ([place]) Anion gap 18(H) 2 - 15 mmol/L [facility] ([place]) BUN 15 6 - 25 mg/dL [facility] ([place]) Creatinine 1.07 0.60 - 1.10 mg/dL [...] 45 Units/L [facility] ([place]) Comment:Hemolysis present. R esults may be affected. AST 18 10 - 45 Units/L [facility] ([place]) Comment: Hemolysis present. Results may be affected. Slightly Hemolyzed Specimen Blood 06/11/2024 8:06 PM CDT 06/11/2024 8:15 PM CDT us Abby HERNANDEZ LAB BLOOD ORDERABLES Alea l Result [facility] 1 [facility] Department of Laboratories [place], [place] [id number] * ECG 12 lead (06/11/2024 7:41 PM CDT) 06/11/2024 7:41 PM CDT Narrative [facility] - 06/12/2024 7:17 AM CDT Vent Rate: 102 bpm RR Interval: 583 msec [place] Interval: 146 msec QRS Duration: 74 msec QT Interval: 334 msec QTC Interval: 393 msec P-R-T [place]: 35 - -12 - 7 degrees IMPRESSION: SINUS TACHYCARDIA POSSIBLE RIGHT VENTRICULAR CONDUCTION DELAY [RSR (QR) IN V1/V2] ABNORMAL RHYTHM ECG Electronically Signed By: Rafal Pacheco MD us Brien Berry MD ECG ORDERABLES Final Resul t [facility] from Last 3 Months Insurance [facility] Advance Directives For more information, please contact: [phone] * Full Code (Latest Code Status on File) Date Activated Date Inactivated Comments 06/12/2024 5:06 AM 06/13/2024 11:16 PM * Full Code Date Activated Date Inactivated Comments 06/12/2024 4:48 AM 06/12/2024 5:06 AM Care Teams Pillar Man Relationship Specialty Start Date End Date Jose Miguel Stewart MD [address] [place] [address] PCP - General Emergency Medicine 06/11/24
[2024-06-21 12:53] LABS: Alanine Aminotransferase 18 U/L (6-35); Alkaline Phosphatase 62 U/L (38-126); Anion Gap 11 mmol/L (4-12); Aspartate Amino Transferase 24 U/L (14-36); Bilirubin,Total 0.4 mg/dL (0.2-1.3); Blood Urea Nitrogen 12 mg/dL (7-17); Calcium 9.3 mg/dL (8.4-10.2); Carbon Dioxide 21 mmol/L (22-30); Chloride 105 mmol/L (98-107); Estimated Glomerular Filt Rate 58; Glucose 99 mg/dL (65-110); Potassium 5.1 mmol/L (3.4-5.0); Sodium 137 mmol/L (137-145)
[2024-06-23 03:13] LABS: CA 15-3 5 U/mL (<32)
== END 2024-06-21 11:28 | disposition home or self-care (01) ==
LOC: ANHLAB 11:28
PROVIDERS: PCP Emergency Medicine; Visit Provider Internal Medicine Hematology & Oncology
DX: C50.111 Malignant neoplasm of central portion of right female breast (principal); Z17.0 Estrogen receptor positive status [ER+]
CPT/HCPCS: 36415; 80053; 85025; 86300

== ENCOUNTER 2024-07-05 13:26 | Outpatient (CLI) | payer OTHER, SELFPAY ==
--- OUTSIDE RECORDS SUMMARY | 2024-07-05 13:29 | XMS_ITS | Clinical Summary ---
Author Organization [facility] Address [address] [place] [address] Care Team Providers Care Banquet Chef Name Role Phone Jose Miguel Stewart MD [...] Date Type Department Care Team Description 06/20/2024 [facility] Post Discharge Follow up phone call [facility] [address] [place], [place] [id number] KemarYoli sanchez Jolynn 06/11/2024 7:36 PM CDT - 06/13/2024 6:30 PM CDT Hospital Encounter [facility] Acute Medicine [address] [place] [id number] Winsome Healy MD Lo Bianco, Salvador, MD [...] Smokeless Tobacco: Never Tobacco Cessation:Counseling Given: No [facility] Utilities Answer Date Recorded In the past 12 months has [employer] electric, gas, oil, or water company threatened [...] often do you attend chur ch or buddhism services? Never 06/12/2024 Do you belong to any clubs o r organizations such as taoist groups, unions, fraternal or athletic groups, or [...] any time in the past 12 m [facility], were you homeless or living in a senior living (including now)? No 06/12/2024 Personal Safety Answer Date Recorded Have you ever been in or are you currently in a harmful physical or emotional relationship or is someone making you feel afraid or unsafe? 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 Gender Identity Not on file Sexual Orientation [...] CRITICAL CARE Routine 06/12/2024 3:33 AM CDT [place] [facility] ILL/INJURED PATIENT INIT 30-74 MIN [...] 06/13/2024 5:58 AM CDT Narrative JONATHAN XAVIER ([place]) - 06/13/2024 6:24 AM CDT Do not [...] BLOOD ORDERABLES F inal Result JONATHAN XAVIER ([place]) 1 [facility] [place] [address] * (ABNORMAL) eGFR (06/13/2024 12:19 AM CDT) [...] BLOOD ORDERABLES Final Resul t JONATHAN XAVIER ([place]) 1 [facility] [place] [address] * (ABNORMAL) Differential, auto (06/13/2024 12:19 AM [...] Neutrophil pct 63.8 % [facility] ([place]) Comment: Interpretive Data Percent cell count reference [...] Final Resul t JONATHAN [facility] ([place]) 1 [facility] [place] [address] * (ABNORMAL) CBC with auto differential (06/13/2024 [...] BLOOD ORDERABLES Final Result Performing Organization Address City/[facility]/ZIP Co de Phone Number JONATHAN XAVIER ([place]) 1 [facility] [place] [place] [address] * (ABNORMAL) aPTT (06/13/2024 12:19 AM CDT) aPTT 90(H) 28 - 38 sec [facility] (AM[place]DA) Comment: Interpretive Data Heparin therapeutic range: 66.0 - 100.0 seconds. Range based on correlation with therapeutic heparin activity range of 0.3 - 0.7 Units/mL. Current interpretive data was last revised on 2022. Blood 06/13/2024 12:1 9 AM CDT 06/13/2024 12:53 AM CDT Narrative [facility] ([place]) - 06/13/2024 1:26 AM CDT Do not [...] ORDERABLES F inal Result Performing Organization Address City/[facility]/ZIP Co de Phone Number JONATHAN XAVIER ([place]) 1 [facility] [place] [place] [address] * (ABNORMAL) Basic metabolic panel (06/13/2024 12:19 AM CDT) Sodium 137 135 - 145 mmol/L Potassium, pl 3.8 3.3 - 4.9 mmol/L [facility] (AM[place]) Chloride 103 97 - 110 mmol/L [facility] (AM[place]DA) CO2 21(L) 22 - 32 mmol/L [facility] ([place]) Anion gap 13 2 - 15 mmol/L [facility] ([place]) BUN 26(H) 6 - 25 mg/dL [facility] ([place]) Creatinine 1.13(H) 0.60 - [...] BLOOD ORDERABLES Final Result Performing Organization Address City/[facility] Co de Phone Number [facility] ([place]) 1 [facility] [place] [place] [address] * ABO / Rh Confirmation Testing (06/12/2024 6:59 PM CDT) ABO/Rh Confirmation A Positive [facility] Blood 06/12/2024 6:59 PM CDT 06/12/2024 7:04 PM CDT Domingo Emery MD LAB BLOOD ORDERABLES Final Result [facility] ([place]) 1 [facility] [place] [address] [facility] * (ABNORMAL) aPTT (06/12/2024 5:04 PM [...] MD LAB BLOOD ORDERABLES Final Result JONATHAN CaponeORELAND) 1 [facility] [place] [address] * US Vein Duplex Lower Extremity Bilateral [...] Donn Valle M.D. KR: ANDRE Report ID: [id number] Reading Location: [id number] Procedure Note Donn Valle MD - 06/12/2024 [...] Donn Valle M.D. KR: ANDRE Report ID: [id number] Reading Location: [place] [address] Domingo Emery MD IMG US PROCEDURES Final [...] Final Resul t JONATHAN XAVIER ([place]) 1 [facility] Department of Laboratories [place], [place] [id number] * TRANSTHORACIC ECHO (TTE) COMPLETE W DOPPLER/CF W CONTRAST (06/12/2024 10:37 AM CDT) LV EF 62 % CONS SCIMAGE Anatomical Region Laterality Modality Ultrasound 06/12/2024 10:1 3 AM CDT Narrative 06/12/2024 2:08 PM CDT [address] [address] Echocardiogram Report Patient Name: ANSON MILLER M : 1945 Study Date: 06/12/2024 10:13:02 AM Gender: F Tech: NL Location: [id number] Ref Provider: JACEK JAMISON Height(Cm): 142 BSA: [...] Procedure Note Jak Wilson MD - 06/12/[address] [place] [address] Echocardiogram Report Patient Name: ANSON MILLER M : 1945 Study Date: 06/12/2024 10:13:02 AM Gender: F Tech: Location: [place] [address] Ref Provider: JACEK JAMISON Height(Cm): 142 BSA: [...] 06/12/2024 8:51 AM CDT Narrative JONATHAN XAVIER ([place]) - 06/12/2024 9:24 AM CDT Collect immediately after alteplase infusion ends and then every 2 hours until aPTT is less than 76 seconds. Once aPTT is less than 76 seconds, alert provider to discontinue order. Winsome Healy MD LAB BLOOD ORDERABLES Final Resul t JONATHAN [facility] ([place]) 1 [facility] [place] [place] [address] * ABO/Rh (06/12/2024 7:32 AM CDT) ABO/Rh A Positive Blood 06/12/2024 7:32 AM CDT 06/12/2024 7:40 AM CDT Narrative JONATHAN XAVIER ([place]) - 06/12/2024 8:21 AM CDT Has the patient had Daratumumab or Isatuximab in the past 6 months?->Unknown Domingo Emery MD LAB BLOOD BANK TEST ORDERA BLES Final Result JONATHAN [facility] ([place]) 1 [facility] [place] [address] * Antibody screen (06/12/2024 7:32 AM CDT) [place], indirect, Gel Interpretation Negative ABSC Blood 06/12/2024 7:32 AM CDT 06/12/2024 7:40 AM CDT Narrative JONATHAN XAVIER ([place]) - 06/12/2024 8:21 AM CDT Has the patient had Daratumumab or Isatuximab in the past 6 months?->Unknown Domingo Emery MD LAB BLOOD BANK TEST ORDERA BLES Final Result JONATHAN XAVIER ([place]) 1 [facility] [place] [address] * (ABNORMAL) aPTT (06/12/2024 6:34 AM CDT) aPTT 41(H) 28 - 38 sec JONATHAN XAVIER ([place]) Comment: Interpretive Data Heparin therapeutic range: 66.0 - 100.0 seconds. Range based on correlation with therapeutic heparin activity range of 0.3 - 0.7 Units/mL. Current interpretive data was last revised on 2022. Blood 06/12/2024 6:34 AM CDT 06/12/2024 6:42 AM CDT Narrative JONATHAN XAVIER ([place]) - 06/12/2024 6:54 AM CDT Collect immediately after alteplase infusion ends and then every 2 hours until aPTT is less than 76 seconds. Once aPTT is less than 76 seconds, alert provider to discontinue order. Winsome Healy MD LAB BLOOD ORDERABLES Final Resul t JONATHAN XAVIER ([place]) 1 [facility] [place] [address] * (ABNORMAL) Sodium level (06/12/2024 6:34 AM CDT) Sodium 134(L) 135 - 145 mmol/L Blood 06/12/2024 6:34 AM CDT 06/12/2024 6:42 AM CDT us Jacek Jamison MD LAB BLOOD ORDERABLES Final Result JONATHAN XAVIER ([place]) 1 [facility] [place] [address] * (ABNORMAL) Potassium (06/12/2024 6:34 AM CDT) Potassium, pl 5.7(H) 3.3 - 4.9 mmol/L Comment:Moderately Hemolyzed Specimen. Results may be affected. Blood 06/12/2024 6:34 AM CDT 06/12/2024 6:42 AM CDT Jacek Jamison MD LAB BLOOD ORDERABLES Final Result Performing Organization Address City/[facility] Co de Phone Number JONATHAN XAVIER ([place]) 1 [facility] [place] [address] * Phosphorus (06/12/2024 6:34 AM CDT) Phosphorus, pl 3.7 2.3 - 4.5 mg/dL Blood 06/12/2024 6:34 AM CDT 06/12/2024 6:42 AM CDT Jacek Jamison MD LAB BLOOD ORDERABLES Final Result JONATHAN XAVIER ([place]) 1 [facility] [place] [address] * Magnesium (06/12/2024 6:34 AM CDT) Magnesium 2.3 1.4 - 2.5 mg/dL Blood 06/12/2024 6:34 AM CDT 06/12/2024 6:42 AM CDT Jacek Jamison MD LAB BLOOD ORDERABLES Final Result JONATHAN XAVIER AMANDA 1 [facility] Department [place] [address] * Critical Care (06/12/2024 3:33 AM CDT) [...] plan with the ICU team and other medical/home planning consultant salesperson staff, making frequent assessments and decisions regarding [...] IN CLINIC/BEDSIDE ORD ERABLES Final Result * [place] CRITICAL CARE ILL/INJURED PATIENT INIT 30-74 MIN [...] Avila M.D. AR: JOSE A Report ID: [id number] Reading Location: [place] [address] Procedure Note Dayne Avila MD - 06/12/2024 [...] Avila M.D. AR: JOSE A Report ID: [id number] Reading Location: [place] [address] us Winsome Healy MD IMG CT PROCEDURES [...] Alea l Result JONATHAN XAVIER ([place]) 1 [facility] Department [place] [address] * (ABNORMAL) D-dimer, quantitative (06/11/2024 11:05 PM [...] ORDERABLES Final Resul t Performing Organization Address [facility] Co de Phone Number JONATHAN XAVIER ([place]) 1 [facility] [place] [place] [address] * (ABNORMAL) aPTT (06/11/2024 11:04 PM CDT) aPTT 27(L) 28 - 38 sec JONATHAN [facility] ([place]) Comment: Interpretive Data Heparin therapeutic range: 66.0 - 100.0 seconds. Range based on correlation with therapeutic heparin activity range of 0.3 - 0.7 Units/mL. Current interpretive data was last revised on 2022. Blood 06/11/2024 11:0 4 PM CDT 06/12/2024 2:20 AM CDT Narrative [facility] ([place]) - 06/12/2024 2:27 AM CDT Baseline prior to heparin initiation Winsome Healy MD LAB BLOOD ORDERABLES Final Resul t Performing Organization Address [facility] de Phone Number JONATHAN XAVIER ([place]) 1 [facility] [place] [address] * Protime-INR (06/11/2024 11:04 PM CDT) PT 11.7 9.7 - 13.0 sec JONATHAN [facility] ([place]) INR 1.08 0.90 - 1.20 JONATHAN [facility] ([place]) Comment: Interpretive data Oral anticoagulant therapeutic ranges: [...] Final Resul t JONATHAN XAVIER ([place]) 1 [facility] [place] [address] * Blood culture Blood Peripheral (06/11/2024 8:59 PM CDT) Report Final Report: No growth Comment:Testing performed by : [facility], [address] [facility], [place]., [address] Blood (Peripheral) 06/11/2024 8:59 PM CDT 06/12/2024 [...] performance characteristics have been verified by the [facility] Microbiology [facility]. For questions about this culture, contact the Microbiology Laboratory at [phone]. Interpretive data was last revised on 24. Abby HERNANDEZ LAB MICROBIOLOGY - GENERA L ORDERABLES Final Result JONATHAN XAVIER ([place]) 1 [facility] [place] [address] * Blood culture Blood Peripheral (06/11/2024 8:51 PM CDT) Report Final Report: No growth Comment:Testing performed by : [facility], [address] [place]., [address] Blood (Peripheral) 06/11/2024 8:51 PM CDT 06/12/2024 1:28 AM CDT Narrative JONATHAN XAVIER ([place]) - 06/16/2024 7:00 AM CDT Draw Blood [...] performance characteristics have been verified by the [facility]. For questions about this culture, contact the Microbiology Laboratory at [phone]. Interpretive data was last revised on 24. us Abby HERNANDEZ LAB MICROBIOLOGY - GENERA L ORDERABLES Final Result JONATHAN XAVIER ([place]) 1 [facility] [place] [address] * XR Chest 1 Vw Portable (06/11/2024 [...] Celeste Soto M.D. FT: FT Report ID: [id number] Reading Location: [id number] Procedure Note Celeste Tabares MD - 06/11/2024 [...] Celeste Soto M.D. FT: FT Report ID: [id number] Reading Location: [place] [address] us Abby HERNANDEZ IMG XR PROCEDURES Final R esult * (ABNORMAL) Sepsis Lactate w/ Reflex (06/11/2024 8:32 PM CDT) [facility] Sepsis Lactate 4.3(C) 0.7 - 2.0 mmol/L Comment:Critical result call ed to and read back by fadi jha (er) on 06/11/2024 21:17:39 CDT to josi scott. Blood 06/11/2024 8:32 PM CDT 06/11/2024 8:38 PM CDT Abby HERNANDEZ LAB BLOOD ORDERABLES Alea l Result [facility] [place]) 1 [facility] Department [place] [address] * (ABNORMAL) Troponin T high-sensitivity [...] ORDERABLES Alea l Result Performing Organization Address City/[facility]/ZIP Co de Phone Number [facility] ([place]) [address] [place] [address] [place] [address] * Influenza A/B, RSV, and COVID-19 PCR Nasopharyngeal (06/11/2024 8:06 PM CDT) Pathologist [facility] COVID-19 RNA Negative Negative Influenza A RNA Negative Negative [facility] ([place]) Influenza B RNA Negative Negative [facility] ([place]) RSV RNA Negative Negative [facility] ([place]) Comment: Interpretive data: Testing performed by [facility]. This test is performed using the PAAY Xpert Xpress CoV-2/Flu/RSV plus assay. This is a multiplex, real- time reverse transcriptase PCR assay intended for the qualitative detection of nucleic acid from SARS-CoV-2, influenza A, influenza B, and respiratory syncytial virus. This assay has been cleared by the [place] Food and Drug administration. The performance characteristics have been verified by the [facility]. Results must be considered in the clinical context, and a negative result does not rule out infection. Interpretive Data last revised 2023 Nasopharyngeal 06/11/2024 8: 06 PM CDT 06/11/2024 8:15 PM CDT Narrative [facility] ([place]) - 06/11/2024 8:56 PM CDT Is the Patient experiencing symptoms consistent with COVID?->Yes Abby HERNANDEZ LAB MICROBIOLOGY - GENERA L ORDERABLES Final Result Performing Organization Address City/[facility]/ZIP Co de Phone Number JONATHAN XAVIER ([place]) 1 [facility] [place] [address] * (ABNORMAL) eGFR (06/11/2024 8:06 PM CDT) [...] LAB BLOOD ORDERABLES Alea alexandre Result [facility]ONATHAN [facility] ([place]) 1 [facility] Department [place] [address] * (ABNORMAL) Differential, auto (06/11/2024 8:06 PM [...] Alea alexandre Result JONATHAN [facility] ([place]) 1 [facility] [place] [address] * (ABNORMAL) Pro B-type natriuretic [...] BLOOD ORDERABLES Alea alexandre Result JONATHAN XAVIER ([place]) 1 [facility] Department of Laboratories [place], [place] [id number] * (ABNORMAL) CBC with auto differential (06/11/2024 8:06 PM CDT) WBC 12.2(H) 3.8 - 9.9 K/cumm Hgb 11.1(L) 11.9 - 15.5 g/dL JONATHAN XAVIER ([place]) Hct 34.3(L) 35.6 - 45.5 % JONATHAN XAVIER ([place]) Plt 306 150 - 400 K/cumm [facility] (AM[place]) MPV 9.4 9.1 - 12.3 fL JONATHAN XAVIER ([place]) RBC 3.54(L) 3.90 - 5.20 M/cumm [facility] ([place]) MCV 96.9(H) 81.3 - 96.4 fL [facility]ON[facility]AN [facility] ([place]) MCH 31.4 27.1 - 33.3 pg [facility] ([place]) MCHC 32.4 32.3 - 35.7 g/dL [facility] ([place]) RDW CV 13.1 11.1 - 14.9 % [facility] ([place]) RDW SD 46.6 35.7 - 48.1 fL [facility] ([place]) NRBC abs 0.00 0.00 - 0.01 K/cumm [facility] ([place]) Blood 06/11/2024 8:06 PM CDT 06/11/2024 8:15 PM CDT us Abby HERNANDEZ LAB BLOOD ORDERABLES Alea alexandre Result Performing Organization Address City/State/[facility] Co de Phone Number JONATHAN CaponeORELAND) 1 [facility] Department of Laboratories [place] [id number] * (ABNORMAL) Hemoglobin A1c (06/11/2024 8:06 PM CDT) Hgb A1C 6.1(H) 4.0 - 5.6 % Estimated Average Glucose 128 mg/dL [facility] ([place]) Comment: The ADA recommends reporting an estimated Average Glucose (eAG) with all Hemoglobin A1c results using the equation derived from a study of 507 normal and diabetic adults. Minority populations were underrepresented and children were not included. (Diabetes Care 31:2594-5322, 2008). The eAG is not equivalent to a fasting glucose. Blood 06/11/2024 8:06 PM CDT 06/12/2024 2:38 AM CDT us Winsome Healy MD LAB BLOOD ORDERABLES Final Resul t JONATHAN XAVIER ([place]) 1 [facility] [place] [address] * (ABNORMAL) Comprehensive metabolic panel (06/11/2024 8:06 [...] LAB BLOOD ORDERABLES Alea l Result [facility] ([place]) 1 [facility] [place] [address] * ECG 12 lead (06/11/2024 7:41 PM CDT) 06/11/2024 7:41 PM CDT Narrative [facility] - 06/12/2024 7:17 AM CDT Vent Rate: 102 bpm RR Interval: 583 msec [place] Interval: 146 msec QRS Duration: 74 msec QT Interval: 334 msec QTC Interval: 393 msec P-R-T [place]: 35 - -12 - 7 degrees IMPRESSION: SINUS TACHYCARDIA POSSIBLE RIGHT VENTRICULAR CONDUCTION DELAY [RSR (QR) IN V1/V2] ABNORMAL RHYTHM ECG Electronically Signed By: Rafal Pacheco MD us Brien Berry MD ECG ORDERABLES Final Resul t Performing Organization Address City/[facility] Co de Phone Number [facility] from Last 3 Months Insurance [facility] Advance Directives For more information, please contact: [phone] * Full Code (Latest Code Status on File) Date Activated Date Inactivated Comments 06/12/2024 5:06 AM 06/13/2024 11:16 PM * Full Code Date Activated Date Inactivated Comments 06/12/2024 4:48 AM 06/12/2024 5:06 AM Care Teams Banquet Chef Relationship Specialty Start Date End Date Jose Miguel Stewart MD [address] [place] [address] PCP - General Emergency Medicine 06/11/24
--- OUTSIDE RECORDS SUMMARY | 2024-07-05 13:29 | XMS_ITS | Referral Summary ---
[facility] Organization [facility] Address [address] [place] [address] Care Team Providers Care Microbial Specialist Name Role Phone Jose Miguel Stewart MD Primary Care Provide r Encounters Date Type Department Care Team Description 06/20/2024 [facility] Post Discharge Follow up phone call [facility] [address] [place] [address] Yoli Brennan 06/11/2024 7:36 PM CDT - 06/13/2024 6:30 PM CDT Hospital Encounter [facility] Acute Medicine [address] [place] [address] Winsome Healy MD Lo Bianco, Salvador, MD [...] Smokeless Tobacco: Never Tobacco Cessation:Counseling Given: No [facility] Utilities Answer Date Recorded In the [...] often do you attend chur ch or moravian services? Never 06/12/2024 Do you belong to any clubs o r organizations such as hinduism groups, unions, fraternal or athletic groups, or [...] time in the past 12 m [facility], were you homeless or living in a assisted (including now)? No 06/12/2024 Personal Safety Answer Date Recorded Have you ever been in or are you currently in a harmful physical or emotional relationship or is someone making you feel afraid or unsafe? 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 73 m2 Comment: [...] MD LAB BLOOD ORDERABLES Final Resul t [facility] ([place]) 1 [facility] Department [place] [address] * (ABNORMAL) Differential, auto (06/13/2024 12:19 AM [...] Final Resul t JONATHAN XAVIER ([place]) 1 [facility] [place] [address] * (ABNORMAL) CBC with auto differential (06/13/2024 12:19 AM CDT) WBC 15.4(H) 3.8 - 9.9 K/cumm Hgb 9.3(L) 11.9 - 15.5 g/dL [facility] ([place]) Hct 28.4(L) 35.6 - 45.5 % [facility] Plt 267 150 - 400 K/cumm [facility] ([place]) MPV 9.1 9.1 - 12.3 fL [facility] RBC 2.97(L) 3.90 - 5.20 M/cumm [facility] ([place] MCV 95.6 81.3 - 96.4 fL [facility] ([place] MCH 31.3 27.1 - 33.3 pg [facility] ([place] MCHC 32.7 32.3 - 35.7 g/dL [facility] ([place] RDW CV 13.4 11.1 - 14.9 % [facility] RDW SD 45.8 35.7 - 48.1 fL [facility] ([place] NRBC abs 0.00 0.00 - 0.01 K/cumm [facility] ([place] Blood 06/13/2024 12:1 9 AM CDT 06/13/2024 12:53 AM CDT Domingo Emery MD LAB BLOOD ORDERABLES Final Result [facility] ([place]) 1 [facility] [place] [address] * (ABNORMAL) aPTT (06/13/2024 12:19 AM CDT) aPTT 90(H) 28 - 38 sec [facility] ([place]) Comment: Interpretive Data Heparin therapeutic [...] F inal Result JONATHAN [facility] ([place]) 1 [facility] [place] [address] * (ABNORMAL) Basic metabolic panel (06/13/2024 12:19 [...] LAB BLOOD ORDERABLES Final Result JONATHAN XAVIER ([place]) 1 [facility] [place] [address] * ABO / Rh Confirmation Testing (06/12/2024 6:59 PM CDT) ABO/Rh Confirmation A Positive [facility] Blood 06/12/2024 6:59 PM CDT 06/12/2024 7:04 PM CDT us Domingo Emery MD LAB BLOOD ORDERABLES Final Result Performing Organization Address [facility] Co de Phone Number JONATHAN XAVIER ([place]) 1 [facility] [place] [address] [facility] * (ABNORMAL) aPTT (06/12/2024 5:04 PM CDT) aPTT 66(H) 28 - 38 sec JONATHAN X[facility] ([place]) Comment: Interpretive Data Heparin therapeutic range: 66.0 - 100.0 seconds. Range based on correlation with therapeutic heparin activity range of 0.3 - 0.7 Units/mL. Current interpretive data was last revised on 2022. Blood 06/12/2024 5:04 PM CDT 06/12/2024 5:09 PM CDT us Domingo Emery MD LAB BLOOD ORDERABLES Final Result Performing Organization Address City/[facility]/ZIP Co de Phone Number JONATHAN XAVIER ([place]) 1 [facility] [place] [address] * US Vein Duplex Lower Extremity Bilateral [...] Donn Valle M.D. KR: ANDRE Report ID: [id number] Reading Location: [place] [address] Procedure Note Donn Valle MD - 06/12/2024 [...] signed by Donn POWELL: ANDRE Report ID: [id number] Reading Location: [place] [address] Domingo Emery MD [facility] US PROCEDURES Final Re sult * (ABNORMAL) aPTT (06/12/2024 10:50 AM CDT) aPTT 20(L) 28 - 38 sec [facility]ONATHAN X[facility] ([place]) Comment: Interpretive Data Heparin therapeutic range: 66.0 - 100.0 seconds. Range based on correlation with therapeutic heparin activity range of 0.3 - 0.7 Units/mL. Current interpretive data was last revised on 2022. Blood 06/12/2024 10:5 0 AM CDT 06/12/2024 10:56 AM CDT Narrative JONATHAN [facility] ([place]) - 06/12/2024 11:11 AM CDT Collect immediately after alteplase infusion ends and then every 2 hours until aPTT is less than 76 seconds. Once aPTT is less than 76 seconds, alert provider to discontinue order. us Winsome Healy MD LAB BLOOD ORDERABLES Final Resul t JONATHAN XAVIER ([place]) [address] [place] [address] Department [place] [address] * TRANSTHORACIC ECHO (TTE) COMPLETE W DOPPLER/CF W CONTRAST (06/12/2024 10:37 AM CDT) Pathologist [facility] LV EF 62 % CONS SCIMAGE Anatomical Region Laterality Modality Ultrasound 06/12/2024 10:1 3 AM CDT Narrative 06/12/2024 2:08 PM CDT [address] [address] Echocardiogram Report Patient Name: ANSON MILLER M : 1945 Study Date: 06/12/2024 10:13:02 AM Gender: F Tech: NL Location: [id number] Ref Provider: JACEK JAMISON Height(Cm): 142 BSA: [...] regurgitation. Electronically Signed By: Jak Wilson MD [facility] 06/12/2024 2:08:19 PM CDT Procedure Note Jak Wilson MD - 06/12/[address] [address] Echocardiogram Report Patient Name: ANSON MILLER M : 1945 Study Date: 06/12/2024 10:13:02 AM Gender: F Tech: Location: [id number] Ref Provider: JACEK JAMISON Height(Cm): 142 BSA: [...] regurgitation. Electronically Signed By: Jak Wilson MD [facility] 06/12/2024 2:08:19 PM CDT Jacek Jamison MD CV ECHO PROCEDURES Fi nal Result * (ABNORMAL) aPTT (06/12/2024 8:46 AM CDT) aPTT 20(L) 28 - 38 sec [facility]ONATHAN X[facility] ([place]) Comment: Interpretive Data Heparin therapeutic range: 66.0 - 100.0 seconds. Range based on correlation with therapeutic heparin activity range of 0.3 - 0.7 Units/mL. Current interpretive data was last revised on 2022. Blood 06/12/2024 8:46 AM CDT 06/12/2024 8:51 AM CDT Narrative [facility]ON[facility]AN X[facility] ([place]) - 06/12/2024 9:24 AM CDT Collect immediately after alteplase infusion ends and then every 2 hours until aPTT is less than 76 seconds. Once aPTT is less than 76 seconds, alert provider to discontinue order. Winsome Healy MD LAB BLOOD ORDERABLES Final Resul t Performing Organization Address City/[facility]/ZIP Co de Phone Number JONATHAN XAVIER ([place]) 1 [facility] [place] [address] * ABO/Rh (06/12/2024 7:32 AM CDT) ABO/Rh A Positive Blood 06/12/2024 7:32 AM CDT 06/12/2024 7:40 AM CDT Narrative JONATHAN D[facility] ([place]) - 06/12/2024 8:21 AM CDT Has the patient had Daratumumab or Isatuximab in the past 6 months?->Unknown Domingo Emery MD LAB BLOOD BANK TEST ORDERA BLES Final Result Performing Organization Address [facility] Co de Phone Number JONATHAN XAVIER ([place]) 1 [facility] [place] [address] * Antibody screen (06/12/2024 7:32 AM CDT) [place], indirect, Gel Interpretation Negative [facility]SC Blood 06/12/2024 7:32 AM CDT 06/12/2024 7:40 AM CDT Narrative [facility] ([place]) - 06/12/2024 8:21 AM CDT Has the patient had Daratumumab or Isatuximab in the past 6 months?->Unknown Domingo Emery MD LAB BLOOD BANK TEST ORDERA BLES Final Result JONATHAN XAVIER ([place]) 1 [facility] [place] [address] * (ABNORMAL) aPTT (06/12/2024 6:34 AM CDT) aPTT 41(H) 28 - 38 sec [facility]) Comment: Interpretive Data Heparin therapeutic range: 66.0 - 100.0 seconds. Range based on correlation with therapeutic heparin activity range of 0.3 - 0.7 Units/mL. Current interpretive data was last revised on 2022. Blood 06/12/2024 6:34 AM CDT 06/12/2024 6:42 AM CDT Narrative JONATHAN [facility] ([place]) - 06/12/2024 6:54 AM CDT Collect immediately after alteplase infusion ends and then every 2 hours until aPTT is less than 76 seconds. Once aPTT is less than 76 seconds, alert provider to discontinue order. us Winsome Healy MD LAB BLOOD ORDERABLES Final Resul t Performing Organization Address City/[facility]/ZIP Co de Phone Number JONATHAN [facility] ([place]) 1 [facility] [place] [address] * (ABNORMAL) Sodium level (06/12/2024 6:34 AM CDT) Pathologist [facility] Sodium 134(L) 135 - 145 mmol/L Blood 06/12/2024 6:34 AM CDT 06/12/2024 6:42 AM CDT us Jacek Jamison MD LAB BLOOD ORDERABLES Final Result JONATHAN [facility] ([place]) 1 [facility] [place] [address] * (ABNORMAL) Potassium (06/12/2024 6:34 AM CDT) Potassium, pl 5.7(H) 3.3 - 4.9 mmol/L Comment:Moderately Hemolyzed Specimen. Results may be affected. Blood 06/12/2024 6:34 AM CDT 06/12/2024 6:42 AM CDT us Jacek Jamison MD LAB BLOOD ORDERABLES Final Result JONATHAN XAVIER ([place]) [address] [place] [address] * Phosphorus (06/12/2024 6:34 AM CDT) Phosphorus, pl 3.7 2.3 - 4.5 mg/dL Blood 06/12/2024 6:34 AM CDT 06/12/2024 6:42 AM CDT us Jacek Jamison MD LAB BLOOD ORDERABLES Final Result Performing Organization Address [facility] Co de Phone Number JONATHAN XAVIER ([place]) [address] [place] [address] * Magnesium (06/12/2024 6:34 AM CDT) Magnesium 2.3 1.4 - 2.5 mg/dL Blood 06/12/2024 6:34 AM CDT 06/12/2024 6:42 AM CDT us Jacek Jamison MD LAB BLOOD ORDERABLES Final Result Performing Organization Address [facility] Co de Phone Number JONATHAN XAVIER ([place]) 1 [facility] [place] [address] * Critical Care (06/12/2024 3:33 AM CDT) [...] plan with the ICU team and other medical/senior recruitment consultant staff, making frequent assessments and decisions [...] IN CLINIC/BEDSIDE ORD ERABLES Final Result * CO CRITICAL CARE ILL/INJURED PATIENT INIT 30-74 MIN [...] management with the admitting team. us Winsome Heayl MD IN CLINIC/BEDSIDE ORDERABLES Fin al Result [...] Avila M.D. AR: JOSE A Report ID: [id number] Reading Location: [id number] Procedure Note Dayne Avila MD - 06/12/2024 [...] Avila M.D. AR: JOSE A Report ID: [id number] Reading Location: [id number] us Winsome Healy MD IMG CT PROCEDURES [...] ORDERABLES Alea l Result Performing Organization Address City/[facility]/ZIP Co de Phone Number JONATHAN XAVIER ([place]) [address] [place] [address] [place] [address] * (ABNORMAL) D-dimer, quantitative (06/11/2024 11:05 PM [...] ORDERABLES Final Resul t Performing Organization Address City/[facility]/ZIP Co de Phone Number JONATHAN XAVIER ([place]) 1 [facility] [place] [address] * (ABNORMAL) aPTT (06/11/2024 11:04 PM CDT) [...] BLOOD ORDERABLES Final Resul t JONATHAN XAVIER ([place]) 1 [facility] [place] [address] * Protime-INR (06/11/2024 11:04 PM CDT) PT [...] BLOOD ORDERABLES Final Resul t JONATHAN XAVIER ([place]) 1 [facility] [place] [address] * Blood culture Blood Peripheral (06/11/2024 8:59 PM CDT) Report Final Report: No growth Comment:Testing performed by : [facility], [address] [place] [address] Blood (Peripheral) 06/11/2024 8:59 PM CDT 06/12/2024 [...] performance characteristics have been verified by the [facility]. For questions about this culture, contact the Microbiology Laboratory at [phone]. Interpretive data was last revised on 24. Abby HERNANDEZ LAB MICROBIOLOGY - GENERA L ORDERABLES Final Result JONATHAN XAVIER ([place]) 1 [facility] Department [place] [address] * Blood culture Blood Peripheral (06/11/2024 8:51 PM CDT) Report Final Report: No growth Comment:Testing performed by : [facility], [address] [place]., [address] Blood (Peripheral) 06/11/2024 8:51 PM CDT 06/12/2024 1:28 AM CDT Narrative JONATHAN XAVIER ([place]) - 06/16/2024 7:00 AM CDT Draw Blood [...] performance characteristics have been verified by the [facility]. For questions about this culture, contact the Microbiology Laboratory at [phone]. Interpretive data was last revised on 24. Abby HERNANDEZ LAB MICROBIOLOGY - GENERA L ORDERABLES Final Result JONATHAN XAVIER ([place]) 1 [facility] Department [place] [address] * XR Chest 1 Vw Portable (06/11/2024 [...] Celeste Soto M.D. FT: FT Report ID: [id number] Reading Location: [id number] Procedure Note Celeste Tabares MD - 06/11/2024 [...] Celeste Soto M.D. FT: FT Report ID: [id number] Reading Location: [place] [address] Abby HERNANDEZ IMG XR PROCEDURES Final R esult * (ABNORMAL) Sepsis Lactate w/ Reflex (06/11/2024 8:32 PM CDT) [facility] Sepsis Lactate 4.3(C) 0.7 - 2.0 mmol/L Comment:Critical result call ed to and read back by fadi jha (er) on 06/11/2024 21:17:39 CDT to josi scott. Blood 06/11/2024 8:32 PM CDT 06/11/2024 8:38 PM CDT Abby HERNANDEZ LAB BLOOD ORDERABLES Alea l Result JONATHAN XAVIER ([place]) [address] [place] [address] [place] [address] * (ABNORMAL) Troponin T high-sensitivity series (baseline, 2hr, 4hr, 6hr) (06/11/2024 8:06 PM CDT) [facility] Trop T hs 78(H) <=14 ng/L Comment: Interpretive Data For further hscTnT resources including the diagnostic algorithm and an aid in interpretation, copy and paste this link: https://nrl.testcatalog.org/show/hsTrop Current Interpretive Data last revised 2020. Blood 06/11/2024 8:06 PM CDT 06/11/2024 8:15 PM CDT Abby HERNANDEZ LAB BLOOD ORDERABLES Alea l Result JONATHAN XAVIER ([place]) 1 [facility] [place] [address] * Influenza A/B, RSV, and COVID-19 PCR Nasopharyngeal (06/11/2024 8:06 PM CDT) [facility] COVID-19 RNA Negative Negative Influenza A RNA Negative Negative [facility] ([place]) Influenza B RNA Negative Negative [facility] ([place]) RSV RNA Negative Negative JONATHAN X[facility]IER ([place]) Comment: Interpretive data: Testing performed by [facility]. This test is performed using the [employer] Xpert Xpress CoV-2/Flu/RSV plus assay. This is a multiplex, real- time reverse transcriptase PCR assay intended for the qualitative detection of nucleic acid from SARS-CoV-2, influenza A, influenza B, and respiratory syncytial virus. This assay has been cleared by the [place] Food and Drug administration. The performance characteristics have been verified by the [facility]. Results must be considered in the clinical context, and a negative result does not rule out infection. Interpretive Data last revised 2023 Nasopharyngeal 06/11/2024 8: 06 PM CDT 06/11/2024 8:15 PM CDT Narrative JONATHAN XAVIER ([place]) - 06/11/2024 8:56 PM CDT Is the Patient experiencing symptoms consistent with COVID?->Yes Abby HERNANDEZ LAB MICROBIOLOGY - GENERA L ORDERABLES Final Result JONATHAN XAVIER ([place]) 1 [facility] Department [place] [address] * (ABNORMAL) eGFR (06/11/2024 8:06 PM CDT) [...] LAB BLOOD ORDERABLES Alea baldomero Result JONATHAN [facility] ([place]) 1 [facility] Department [place] [address] * (ABNORMAL) Differential, auto (06/11/2024 8:06 PM CDT) Neutrophil abs 9.0(H) 1.5 - 6.5 K/cumm Imm gran abs 0.1 0.0 - 0.1 K/cumm [facility] ([place]) Lymphocyte abs 2.4 0.8 - 3.3 K/cumm [facility] ([place]) Monocyte abs 0.6 0.2 - 0.8 K/cumm [facility] ([place]) Eosinophil abs 0.1 0.0 - 0.5 K/cumm [facility] ([place]) Basophil abs 0.0 0.0 - 0.1 K/cumm [facility] ([place]) Neutrophil pct 73.9 % [facility] ([place]) Comment: Interpretive Data Percent cell count reference [...] BLOOD ORDERABLES Alea l Result JONATHAN XAVIER ([place]) 1 [facility] [place] [address] * (ABNORMAL) Pro B-type natriuretic peptide (06/11/2024 [...] Alea alexandre Result [facility] ([place]) 1 [facility] Department [place] [address] * (ABNORMAL) CBC with auto differential (06/11/2024 [...] ORDERABLES Alea l Result Performing Organization Address [facility] Co de Phone Number [facility] ([place]) [address] [place] [address] * (ABNORMAL) Hemoglobin A1c (06/11/2024 8:06 PM CDT) Hgb A1C 6.1(H) 4.0 - 5.6 % Estimated Average Glucose 128 mg/dL [facility] ([place]) Comment: The ADA recommends reporting an estimated Average Glucose (eAG) with all Hemoglobin A1c results using the equation derived from a study of 507 normal and diabetic adults. Minority populations were underrepresented and children were not included. (Diabetes Care 31:8804-2290, 2008). The eAG is not equivalent to a fasting glucose. Blood 06/11/2024 8:06 PM CDT 06/12/2024 2:38 AM CDT Winsome Healy MD LAB BLOOD ORDERABLES Final Resul t Performing Organization Address [facility] Co de Phone Number [facility] ([place]) [address] [place] [address] * (ABNORMAL) Comprehensive metabolic panel (06/11/2024 8:06 PM CDT) Sodium 131(L) 135 - 145 mmol/L Potassium, pl 5.5(H) 3.3 - 4.9 mmol/L [facility] ([place]) Comment:Slightly Hemolyzed S pecimen. Results may be affected. Chloride 98 97 - 110 mmol/L [facility] ([place]) CO2 15(L) 22 - 32 mmol/L [facility] ([place]) Anion gap 18(H) 2 - 15 mmol/L [facility] ([place]) BUN 15 6 - 25 mg/dL [facility] ([place]) Creatinine 1.07 0.60 - 1.10 [...] HERNANDEZ LAB BLOOD ORDERABLES Alea l Result [facility] 1 [facility] Department of Laboratories [place], [place] [address] * ECG 12 lead (06/11/2024 7:41 PM CDT) 06/11/2024 7:41 PM CDT Narrative [facility] - 06/12/2024 7:17 AM CDT Vent Rate: 102 bpm RR Interval: 583 msec CO Interval: 146 msec QRS Duration: 74 msec QT Interval: 334 msec QTC Interval: 393 msec P-R-T [place]: 35 - -12 - 7 degrees IMPRESSION: SINUS TACHYCARDIA POSSIBLE RIGHT VENTRICULAR CONDUCTION DELAY [RSR (QR) IN V1/V2] ABNORMAL RHYTHM ECG Electronically Signed By: Rafal Pacheco MD us Brien Berry MD ECG ORDERABLES Final Resul t [facility] from Last 3 Months Insurance HEALTHCARE Advance Directives For more information, please contact: [phone] * Full Code (Latest Code Status on File) Date Activated Date Inactivated Comments 06/12/2024 5:06 AM 06/13/2024 11:16 PM * Full Code Date Activated Date Inactivated Comments 06/12/2024 4:48 AM 06/12/2024 5:06 AM Care Teams Microbial Specialist Relationship Specialty Start Date End Date Jose Miguel Stewart MD [address] [place] [address] PCP - General Emergency Medicine 06/11/24
--- OUTSIDE RECORDS SUMMARY | 2024-07-05 13:29 | XMS_ITS | Encounter Summary ---
Author Organization [facility] [employer] [facility] Address [address] [place] [address] Care Team Providers Care Organic Preparation Analyst Name Role Phone Jose Miguel Stewart MD Primary Care Provider [phone] Encounter Details Date Type Department Care Team (Late Contact Info) Description 06/28/2024 Results Follow-Up [facility] Oncology and Hematology [facility] [address] [place] [address] Geoff Mirza MD [address] [place] [address] CANCER ANTIGEN 15-3 Social History Tobacco Use Types Packs/Day Years Used Date Smoking Tobacco: Former Cigarettes 1 40 0 09/21/1983 - 09/24/2023 Alcohol Use Standard Drinks/Week Comments Yes 0 (1 standard drink = 0.6 oz pur e alcohol) socially Comments Unknown Sex and Gender Information Value Date Recorded Sex Assigned at Not on file Legal Sex Female 12:47 PM CDT Gender Identity Not on file Sexual Orientation Not on file documented as of this encounter Plan of Treatment Upcoming Encounters Date Type Department Care Team (Late Contact Info) Description 07/11/2024 4:00 PM CDT Telephone Check Up [facility] [address] [place] [address] Geoff Mirza MD [address] [place] [address] 11/15/2024 11:00 AM CDT Office Visit [facility] Oncology and Hematology - [place] [address] [place] [address] Geoff Mirza MD [address] [facility] [address] [place] [address] documented as of this encounter Visit Diagnoses Not on filedocumented in this encounter Care Teams Organic Preparation Analyst Relationship Specialty Start Date End Date Jose Miguel Stewart MD [address] [place] [address] PCP - General Internal Medicine 09/15/23 documented as of this encounter
--- OUTSIDE RECORDS SUMMARY | 2024-07-05 13:29 | XMS_ITS | Clinical Summary ---
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
--- OUTSIDE RECORDS SUMMARY | 2024-07-05 13:29 | XMS_ITS | Encounter Summary ---
Author Organization [facility] Address [address] [place] [address] Care Team Providers Care Creative Lead Name Role Phone Jose Miguel Stewart MD Primary Care Provider [phone] Reason for Visit * Eval and Treat (Routine) - Authorized Specialty Diagnoses / Procedures Referred By Contac t Referred To Contact Hematology and Oncology Diagnoses Malignant neoplasm of unspecified site of right female breast (CMS/HCC) Procedures office level 3-5 Jose Miguel Stewart MD [address] [place] [address] Phone: tel: fax: [facility] Oncology and Hematology - [place] [address] [place] [address] Phone: tel: fax: Referral ID Status Reason Start Date Expiration Date V isits Requested Visits Authorized [id number] Authorized 09/21/2023 09/20/2024 12 12 Encounter Details Date Type Department Care Team (Late st Contact Info) Description 07/05/2024 12:45 PM CDT Office Visit [facility] Oncology and Hematology - [place] [address] [place] [address] Geoff Mirza MD [address] [facility] [address] [place] [address] Malignant neoplasm of central portion of right breast in female, estrogen receptor positive (CMS/HCC) (Primary Dx); Other acute pulmonary embolism without acute cor pulmonale (CMS/HCC); Chronic anemia Social History Tobacco Use Types Packs/Day Years [...] on file documented as of this encounter Last Filed Vital Signs Vital Sign Reading Time Taken Comments Blood Pressure 125/62 07/05/2024 12:45 PM CDT Pulse 69 07/05/2024 12:45 PM CDT Temperature 35.6 C (96 F) 07/05/2024 12:45 PM CDT Respiratory Rate 15 07/05/2024 12:45 PM CDT Oxygen Saturation 91% 07/05/2024 12:45 PM CDT Inhaled Oxygen Concentration - - Weight 56.7 kg (125 lb) 07/05/2024 12:45 PM CDT Height - - Body Mass Index 27.05 09/21/2023 1:26 PM CDT documented in this encounter Plan of Treatment Upcoming Encounters Date Type Department Care Team (Late st Contact Info) Description 07/11/2024 4:00 PM CDT Telephone Check Up [facility] Oncology and Hematology [facility] [address] [place] [address] Geoff Mirza MD [address] [place] [address] [employer] [address] [place] [phone] 11/15/2024 11:00 AM CDT Office Visit [facility] Oncology and Hematology [facility] [address] [place] [address] Geoff Mirza MD [address] [place] [phone] Scheduled Orders Name Type Priority Associated Diagnoses Orde r Schedule CANCER ANTIGEN 15-3 Lab Routine Malignant neoplasm of central portion of right breast in female, estrogen receptor positive (CMS/HCC) Expected: 10/25/2024, Expires: 07/05/2025 CBC WITH DIFFERENTIAL Lab Stat Malignant neoplasm of central portion of right breast in female, estrogen receptor positive (CMS/HCC) Expected: 10/25/2024, Expires: 07/05/2025 COMPREHENSIVE METABOLIC PANEL Lab Stat Malignant neoplasm of central portion of right breast in female, estrogen receptor positive (CMS/HCC) Expected: 10/25/2024, Expires: 07/05/2025 D-DIMER Lab Routine Other acute pulmonary embolism without acute cor pulmonale (CMS/HCC) Expected: 11/04/2024, Expires: 07/05/2025 FERRITIN Lab Routine Chronic anemia Expected: 07/05/2024, Expires: 07/05/2025 IRON, TIBC, AND PERCENT SATURATION Lab Routine Chronic anemia Expected: 07/05/2024, Expires: 07/05/2025 VITAMIN B12 AND FOLATE Lab Routine Chronic anemia Expected: 07/05/2024, Expires: 07/05/2025 documented as of this encounter Visit Diagnoses Diagnosis Malignant neoplasm of central portion of right breast in female, estrogen receptor positive (CMS/HCC)- Primary Other acute pulmonary embolism without acute cor pulmonale (CMS/HCC) Chronic anemia Anemia, unspecified documented in this encounter Care Teams Creative Lead Relationship Specialty Start Date End Date Jose Miguel Stewart MD [address] [place] [phone] PCP - General Internal Medicine 09/15/23 documented as of this encounter
--- OUTSIDE RECORDS SUMMARY | 2024-07-05 13:29 | XMS_ITS | Clinical Summary ---
Author Organization [facility] [employer] [employer] Address [address] [place] [address] Care Team Providers Care Ammonium Sulfate Operator Name Role Phone Jose Miguel Stewart MD Primary Care Provider [phone] Allergies No known active allergies Medications cholecalciferol, vitamin D3, 5,000 unit Take 400 Units by mouth daily. Active multivitamin (DAILY-PEDRO LUIS) tablet Take 1 Tablet by mouth daily. Active tamoxifen (NOLVADEX) 20 mg tablet Take 1 Tablet (20 mg) by mouth daily. 90 Tablet 4 12/14/2023 Active apixaban (Eliquis) 5 mg tablet Take 5 mg by mouth 2 times daily. Active alendronate (FOSAMAX) 70 mg tablet Take 70 mg by mouth every 7 days. 05/31/2024 Active Active Problems Problem Noted Date Diagnosed Date Osteoporosis 01/22/2024 Encounters Date Type Department Care Team Description 07/05/2024 12:45 PM CDT Office Visit [facility] Oncology and Hematology - [place] [address] [place] [address] Geoff Mirza MD Malignant neoplasm of central portion of right breast in female, estrogen receptor positive (CMS/HCC) (Primary Dx); Other acute pulmonary embolism without acute cor pulmonale (CMS/HCC); Chronic anemia 06/28/2024 Results Follow-Up [facility] Oncology and Hematology [place] [address] [place] [address] Geoff Mirza MD CANCER ANTIGEN 15-3 06/25/2024 Orders Only [facility] Oncology and Hematology - [place] [address] [place] [address] Geoff Mirza MD 05/14/2024 External Device Data STL ABSTRACTION Provider, [...] (125 lb) 07/05/2024 12:45 PM CDT Height 144.8 cm (4' 9 ) 09/21/2023 1:26 PM CDT Body Mass Index 27.05 09/21/2023 1:26 PM CDT Plan of Treatment Upcoming Encounters Date Type Department Care Team (Late st Contact Info) Description 07/11/2024 4:00 PM CDT Telephone Check Up [facility] Oncology and Hematology - [place] [address] [place] [phone] Geoff Mirza MD [address] [facility] [address] [place] [address] 11/15/2024 11:00 AM CDT Office Visit [facility] Oncology and Hematology [facility] [address] [facility] [address] [place] [phone] Geoff Mirza MD [address] [facility] [address] [place] [address] Health Maintenance Due Date Last Done Comments DTAP/TDAP/TD VACCINES (1 - Tdap) 1964 Lung Cancer Screening 1996 PNEUMOCOCCAL VACCINE 50+ YEARS (1 of 1 - PCV) 04/21/18 97 ZOSTER VACCINE (1 of 2) 1996 OSTEOPOROSIS SCREENING 2011 RSV VACCINE (60+ or ) (1 - 1-dose 75+ series) 2021 INFLUENZA VACCINE (#1) 2023 COVID-19 Vaccine (2 - season) 2023 Medicare Advantage ([place]) Prev entative Visit/Annual Wellness Visit 03/27/2024 Procedures Procedure Name Priority Date/Time Associated Diagnosis Comments CANCER ANTIGEN 15-3 Routine 06/21/2024 8 :19 AM CDT COMPREHENSIVE METABOLIC PANEL Routine 06/21/2024 7:51 AM CDT from Last 3 Months Results * CANCER ANTIGEN 15-3 (06/21/2024 8:19 AM CDT) Blood us Geoff Mirza MD CHEMISTRY ORDERABLES Final Resu lt * COMPREHENSIVE METABOLIC PANEL (06/21/2024 7:51 AM CDT) Blood Geoff Mirza MD CHEMISTRY ORDERABLES Final Resu lt from Last 3 Months Insurance [facility] MCR Care Teams Ammonium Sulfate Operator Relationship Specialty Start Date End Date Jose Miguel Stewart MD [address] [place] [phone] PCP - General Internal Medicine 09/15/23
[2024-07-05 16:24] LABS: Iron 65 ug/dL (37-170); Percent Iron Saturation 20 % (20-50)
[2024-07-05 17:18] LABS: Folic Acid 4.4 ng/mL (2.76->20)
== END 2024-07-05 13:27 | disposition home or self-care (01) ==
LOC: ANHLAB 13:26
PROVIDERS: PCP Emergency Medicine; Visit Provider Internal Medicine Hematology & Oncology
DX: D64.9 Anemia, unspecified (principal)
CPT/HCPCS: 36415; 82607; 82728; 82746; 83540; 83550

== ENCOUNTER 2024-09-06 09:59 | Outpatient (CLI) | payer OTHER, SELFPAY ==
--- OUTSIDE RECORDS SUMMARY | 2024-09-06 10:08 | XMS_ITS | Clinical Summary ---
Author Organization [facility] Kraig holder [employer] Address [address] [facility] [place] [address] Care Team Providers Care Water Vessel Captain Name Role Phone Jose Miguel Stewart MD Primary Care Provider [phone] Allergies No known active allergies Medications cholecalciferol, [...] Encounters Date Type Department Care Team Description 08/15/2024 External Device Data STL ABSTRACTION Provider, Abstract 08/14/2024 External Device Data STL ABSTRACTION Provider, Abstract 08/13/2024 External Device Data STL ABSTRACTION Provider, Abstract 07/30/2024 External Device Data STL ABSTRACTION Provider, Abstract 07/08/2024 Orders Only [facility] Oncology and Hematology - [place] [address] [place] [address] Geoff Mirza MD 07/05/2024 12:45 PM CDT Office Visit [facility] Oncology and Hematology - [place] [address] [place] [address] Geoff Mirza MD Malignant neoplasm of central portion of right breast in female, estrogen receptor positive (CMS/HCC) (Primary Dx); Other acute pulmonary embolism without acute cor pulmonale (CMS/HCC); Chronic anemia 06/28/2024 Results Follow-Up [facility] Oncology and Hematology [facility] [address] [place] [address] Geoff Mirza MD CANCER ANTIGEN 15-3 06/25/2024 Orders Only [facility] Oncology and Hematology [facility] [address] [place] [address] Geoff Mirza MD from Last 3 Months Family History Medical [...] 12:45 PM CDT Height 144.8 cm (4' 9) 09/21/2023 1:26 PM CDT Body Mass Index 27.05 09/21/2023 1:26 PM CDT Plan of Treatment Upcoming Encounters Date Type Department Care Team (Late Contact Info) Description 11/15/2024 11:00 AM CDT Office Visit [facility] Oncology and Hematology - [place] [address] [facility] [address] [place] [address] Geoff Mirza MD [address] [facility] [address] [place] [address] Health Maintenance Due Date Last Done Comments DTAP/TDAP/TD VACCINES (1 - Tdap) 1964 Lung Cancer Screening 1996 PNEUMOCOCCAL VACCINE 50+ YEARS (1 of 1 - PCV) 04/21/18 97 ZOSTER VACCINE (1 of 2) 1996 OSTEOPOROSIS SCREENING 2011 RSV VACCINE (60+ or ) (1 - 1-dose 75+ series) 2021 INFLUENZA VACCINE (#1) 2023 COVID-19 Vaccine (2 - season) 2023 Procedures Procedure Name Priority Date/Time Associated Diagnosis Comments IRON, TIBC, AND PERCENT SATURATION Routine 07/05/2024 12:37 PM CDT CANCER ANTIGEN 15-3 Routine 06/21/2024 8 :19 AM CDT COMPREHENSIVE METABOLIC PANEL Routine 06/21/2024 7:51 AM CDT from Last 3 Months Results * IRON, TIBC, AND PERCENT SATURATION (07/05/2024 12:37 PM CDT) Blood Geoff Mirza MD CHEMISTRY ORDERABLES Final Resu lt * CANCER ANTIGEN 15-3 (06/21/2024 8:19 AM CDT) Blood us Geoff Mirza MD CHEMISTRY ORDERABLES Final Resu lt * COMPREHENSIVE METABOLIC PANEL (06/21/2024 7:51 AM CDT) Blood us Geoff Mirza MD CHEMISTRY ORDERABLES Final Resu lt from Last [address] [facility] Care Teams Water Vessel Captain Relationship Specialty Start Date End Date Jose Miguel Stewart MD [address] [place] [address] PCP - General Internal Medicine 09/15/23
--- OUTSIDE RECORDS SUMMARY | 2024-09-06 10:08 | XMS_ITS | Clinical Summary ---
Author Organization 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
--- OUTSIDE RECORDS SUMMARY | 2024-09-06 10:09 | XMS_ITS | Referral Summary ---
[facility] Address [address] [place] [address] Care Team Providers Care Pay Per Click Strategist Name Role Phone Jose Miguel Stewart MD Primary Care Provide r Encounters Date Type Department Care Team Description 06/20/2024 [facility] Post Discharge Follow up phone call [facility] [address] [place] [address] Yoli Brennan 06/11/2024 7:36 PM CDT - 06/13/2024 6:30 PM CDT Hospital Encounter [facility] [address] [place] [id number] Winsome Healy MD Lo Bianco, Salvador, MD [...] Smokeless Tobacco: Never Tobacco Cessation:Counseling Given: No [facility] Utilities Answer Date Recorded In the [...] often do you attend chur ch or latter-day services? Never 06/12/2024 Do you belong to [...] any time in the past [address] [facility], were you homeless or living in a jail (including now)? No 06/12/2024 Personal Safety Answer Date Recorded Have you ever been in or are you currently in a harmful physical or emotional relationship or is someone making you feel afraid or unsafe? Denies 06/12/2024 Comments Unknown Sex and Gender Information Value Date Recorded Sex Assigned at Not on file Legal Sex Female 2:43 PM [employer] Gender Identity Not on file Sexual Orientation [...] A M CDT Height 142.2 cm (4' 8) 06/12/2024 4:43 AM CDT Body Mass Index [...] CRITICAL CARE Routine 06/12/2024 3:33 AM CDT [place] CRITICAL CARE ILL/INJURED PATIENT INIT 30-74 MIN [...] F inal Result JONATHAN [facility] ([place]) [address] [facility] [place] [address] * (ABNORMAL) eGFR (06/13/2024 12:19 AM CDT) Pathologist [facility] eGFR 50(L) >=60 mL/min/1. 73 m2 Comment: [...] MD LAB BLOOD ORDERABLES Final Resul t [facility] ([place]) [address] [facility] [place] [address] * (ABNORMAL) Differential, auto (06/13/2024 12:19 AM [...] Final Resul t [facility] ([place]) [address] [facility] [place] [address] * (ABNORMAL) CBC with auto differential (06/13/2024 12:19 AM CDT) WBC 15.4(H) 3.8 - 9.9 K/cumm Hgb 9.3(L) 11.9 - 15.5 g/dL [facility] ([place]) Hct 28.4(L) 35.6 - 45.5 % [facility] ([place] Plt 267 150 - 400 K/cumm [facility] ([place]) MPV 9.1 9.1 - 12.3 fL [facility] ([place]) RBC 2.97(L) 3.90 - 5.20 M/cumm [facility] ([place]) MCV 95.6 81.3 - 96.4 fL [facility] ([place]) MCH 31.3 27.1 - 33.3 pg [facility] ([place] MCHC 32.7 32.3 - 35.7 g/dL [facility] ([place]) RDW CV 13.4 11.1 - 14.9 % [facility] ([place] RDW SD 45.8 35.7 - 48.1 fL [facility] ([place]) NRBC abs 0.00 0.00 - 0.01 K/cumm [facility] ([place]) Blood 06/13/2024 12:1 9 AM CDT 06/13/2024 12:53 AM CDT Domingo Emery MD LAB BLOOD ORDERABLES Final Result [facility] ([place]) [address] [facility] [place] [address] * (ABNORMAL) aPTT (06/13/2024 12:19 AM CDT) aPTT 90(H) 28 - 38 sec [facility] ([place]) Comment: Interpretive Data Heparin [...] F inal Result [facility] ([place]) [address] [facility] [place] [address] * (ABNORMAL) Basic metabolic panel (06/13/2024 12:19 [...] LAB BLOOD ORDERABLES Final Result [facility] ([place]) [address] [facility] [place] [address] * ABO / Rh Confirmation Testing (06/12/2024 6:59 PM CDT) ABO/Rh Confirmation A Positive [facility] Blood 06/12/2024 6:59 PM CDT 06/12/2024 7:04 PM CDT us Domingo Emery MD LAB BLOOD ORDERABLES Final Result Performing Organization Address [facility] Co de Phone Number [facility] ([place]) [address] [facility] [place] [address] [facility] * (ABNORMAL) aPTT (06/12/2024 5:04 PM CDT) aPTT 66(H) 28 - 38 sec [facility] ([place]) Comment: Interpretive Data Heparin therapeutic range: 66.0 - 100.0 seconds. Range based on correlation with therapeutic heparin activity range of 0.3 - 0.7 Units/mL. Current interpretive data was last revised on 2022. Blood 06/12/2024 5:04 PM CDT 06/12/2024 5:09 PM CDT us Domingo Emery MD LAB BLOOD ORDERABLES Final Result Performing Organization Address City/[facility]/ZIP Co de Phone Number [facility] ([place]) [address] [facility] [place] [address] * US Vein Duplex Lower Extremity Bilateral [...] Donn Valle M.D. KR: ANDRE Report ID: [id number] Reading Location: [place] [address] Procedure Note Donn Valle MD - 06/12/2024 [...] signed by Donn POWELL: ANDRE Report ID: [id number] Reading Location: [place] [address] Domingo Emery MD [facility] US PROCEDURES Final Re sult * (ABNORMAL) aPTT (06/12/2024 10:50 AM CDT) aPTT 20(L) 28 - 38 sec [facility] ([place]) Comment: Interpretive Data Heparin therapeutic range: 66.0 - 100.0 seconds. Range based on correlation with therapeutic heparin activity range of 0.3 - 0.7 Units/mL. Current interpretive data was last revised on 2022. Blood 06/12/2024 10:5 0 AM CDT 06/12/2024 10:56 AM CDT Narrative [facility] ([place]) - 06/12/2024 11:11 AM CDT Collect immediately after alteplase infusion ends and then every 2 hours until aPTT is less than 76 seconds. Once aPTT is less than 76 seconds, alert provider to discontinue order. us Winsome Healy MD LAB BLOOD ORDERABLES Final Resul t [facility] ([place]) [address] [place] [address] [place] [address] * TRANSTHORACIC ECHO (TTE) COMPLETE W DOPPLER/CF W CONTRAST (06/12/2024 10:37 AM CDT) Pathologist [facility] LV EF 62 % CONS SCIMAGE Anatomical Region Laterality Modality Ultrasound 06/12/2024 10:1 3 AM CDT Narrative 06/12/2024 2:08 PM CDT [address] [address] Echocardiogram Report Patient Name: ANSON MILLER M : 1945 Study Date: 06/12/2024 10:13:02 AM Gender: F Tech: NL Location: [id number] Ref Provider: JACEK JAMISON Height(Cm): 142 BSA: [...] regurgitation. Electronically Signed By: Jak Wilson MD [facility] 06/12/2024 2:08:19 PM CDT Procedure Note Jak Wilson MD - 06/12/[address] [address] Echocardiogram Report Patient Name: ANSON MILLER M : 1945 Study Date: 06/12/2024 10:13:02 AM Gender: F Tech: Location: [id number] Ref Provider: JACEK JAMISON Height(Cm): 142 BSA: [...] regurgitation. Electronically Signed By: Jak Wilson MD [facility] 06/12/2024 2:08:19 PM CDT Jacek Jamison MD CV ECHO PROCEDURES Fi nal Result * (ABNORMAL) aPTT (06/12/2024 8:46 AM CDT) aPTT 20(L) 28 - 38 sec [facility] ([place]) Comment: Interpretive Data Heparin therapeutic range: 66.0 - 100.0 seconds. Range based on correlation with therapeutic heparin activity range of 0.3 - 0.7 Units/mL. Current interpretive data was last revised on 2022. Blood 06/12/2024 8:46 AM CDT 06/12/2024 8:51 AM CDT Narrative [facility] ([place]) - 06/12/2024 9:24 AM CDT Collect immediately after alteplase infusion ends and then every 2 hours until aPTT is less than 76 seconds. Once aPTT is less than 76 seconds, alert provider to discontinue order. Winsome Healy MD LAB BLOOD ORDERABLES Final Resul t Performing Organization Address City/[facility]/ZIP Co de Phone Number [facility] ([place]) [address] [facility] [place] [address] * ABO/Rh (06/12/2024 7:32 AM CDT) ABO/Rh A Positive Blood 06/12/2024 7:32 AM CDT 06/12/2024 7:40 AM CDT Narrative [facility]AN [facility] ([place]) - 06/12/2024 8:21 AM CDT Has the patient had Daratumumab or Isatuximab in the past 6 months?->Unknown Domingo Emery MD LAB BLOOD BANK TEST ORDERA BLES Final Result Performing Organization Address [facility] Co de Phone Number [facility] ([place]) [address] [facility] [place] [address] * Antibody screen (06/12/2024 7:32 AM CDT) [place], indirect, Gel Interpretation Negative ABSC Blood 06/12/2024 7:32 AM CDT 06/12/2024 7:40 AM CDT Narrative [facility] ([place]) - 06/12/2024 8:21 AM CDT Has the patient had Daratumumab or Isatuximab in the past 6 months?->Unknown Domingo Emery MD LAB BLOOD BANK TEST ORDERA BLES Final Result [facility] ([place]) 1 [facility] [place] [address] * (ABNORMAL) aPTT (06/12/2024 6:34 AM CDT) aPTT 41(H) 28 - 38 sec [facility] Comment: Interpretive Data Heparin therapeutic range: 66.0 - 100.0 seconds. Range based on correlation with therapeutic heparin activity range of 0.3 - 0.7 Units/mL. Current interpretive data was last revised on 2022. Blood 06/12/2024 6:34 AM CDT 06/12/2024 6:42 AM CDT Narrative [facility] ([place]) - 06/12/2024 6:54 AM CDT Collect immediately after alteplase infusion ends and then every 2 hours until aPTT is less than 76 seconds. Once aPTT is less than 76 seconds, alert provider to discontinue order. us Winsome Healy MD LAB BLOOD ORDERABLES Final Resul t Performing Organization Address City/[facility]/ZIP Co de Phone Number [facility] ([place]) [address] [facility] [place] [address] * (ABNORMAL) Sodium level (06/12/2024 6:34 AM CDT) Pathologist [facility] Sodium 134(L) 135 - 145 mmol/L Blood 06/12/2024 6:34 AM CDT 06/12/2024 6:42 AM CDT us Jacek Jamison MD LAB BLOOD ORDERABLES Final Result [facility] ([place]) [address] [facility] [place] [address] * (ABNORMAL) Potassium (06/12/2024 6:34 AM CDT) Potassium, pl 5.7(H) 3.3 - 4.9 mmol/L Comment:Moderately Hemolyzed Specimen. Results may be affected. Blood 06/12/2024 6:34 AM CDT 06/12/2024 6:42 AM CDT us Jacek Jamison MD LAB BLOOD ORDERABLES Final Result [facility] ([place]) 1 [place] [address] * Phosphorus (06/12/2024 6:34 AM CDT) Phosphorus, pl 3.7 2.3 - 4.5 mg/dL Blood 06/12/2024 6:34 AM CDT 06/12/2024 6:42 AM CDT us Jacek Jamison MD LAB BLOOD ORDERABLES Final Result Performing Organization Address City/[facility] Co de Phone Number [facility]AN [facility] ([place]) [address] [place] [address] * Magnesium (06/12/2024 6:34 AM CDT) Magnesium 2.3 1.4 - 2.5 mg/dL Blood 06/12/2024 6:34 AM CDT 06/12/2024 6:42 AM CDT us Jacek Jamison MD LAB BLOOD ORDERABLES Final Result Performing Organization Address City/[facility] Co de Phone Number [facility] ([place]) [address] [facility] [place] [address] * Critical Care (06/12/2024 3:33 AM CDT) [...] plan with the ICU team and other medical/incident response consultant staff, making frequent assessments and decisions [...] IN CLINIC/BEDSIDE ORD ERABLES Final Result * [place] CRITICAL CARE ILL/INJURED PATIENT INIT 30-74 MIN [...] Avila M.D. AR: JOSE A Report ID: [id number] Reading Location: [id number] Procedure Note Dayne Avila MD - 06/12/2024 [...] Avila M.D. AR: JOSE A Report ID: [id number] Reading Location: [id number] us Winsome Healy MD IMG CT PROCEDURES [...] ORDERABLES Alea l Result Performing Organization Address City/[facility]/ZIP Co de Phone Number [facility]ATHAN [facility] ([place]) [address] [place] [address] [place] [address] * (ABNORMAL) D-dimer, quantitative (06/11/2024 11:05 PM [...] ORDERABLES Final Resul t Performing Organization Address City/[facility]/ZIP Co de Phone Number [facility]ONATHAN [facility] ([place]) [address] [facility] [place] [address] * (ABNORMAL) aPTT (06/11/2024 11:04 PM CDT) [...] BLOOD ORDERABLES Final Resul t [facility]AN [facility] ([place]) [address] [facility] [place] [address] * Protime-INR (06/11/2024 11:04 PM CDT) PT [...] BLOOD ORDERABLES Final Resul t [facility]AN [facility] ([place]) [address] [facility] [place] [address] * Blood culture Blood Peripheral (06/11/2024 8:59 PM CDT) Report Final Report: No growth Comment:Testing performed by : [facility], [address] [place]., [address] Blood (Peripheral) 06/11/2024 8:59 PM CDT 06/12/2024 [...] performance characteristics have been verified by the [facility]. For questions about this culture, contact the Microbiology Laboratory at [phone]. Interpretive data was last revised on 24. Abby HERNANDEZ LAB MICROBIOLOGY - GENERA L ORDERABLES Final Result [facility]ON[facility]AN [facility] ([place]) [address] [facility] [place] [address] * Blood culture Blood Peripheral (06/11/2024 8:51 PM CDT) Report Final Report: No growth Comment:Testing performed by : [facility], [address] [place]., [address] Blood (Peripheral) 06/11/2024 8:51 PM CDT 06/12/2024 1:28 AM CDT Narrative [facility] ([place]) - 06/16/2024 7:00 AM CDT Draw Blood [...] performance characteristics have been verified by the [facility]. For questions about this culture, contact the Microbiology Laboratory at [phone]. Interpretive data was last revised on 24. Abby HERNANDEZ LAB MICROBIOLOGY - GENERA L ORDERABLES Final Result [facility] ([place]) [address] [facility] [place] [address] * XR Chest 1 Vw Portable (06/11/2024 [...] Celeste Soto M.D. FT: FT Report ID: [id number] Reading Location: [id number] Procedure Note Celeste Tabares MD - 06/11/2024 [...] Celeste Soto M.D. FT: FT Report ID: [id number] Reading Location: [place] [address] Abby HERNANDEZ IMG XR PROCEDURES Final R esult * (ABNORMAL) Sepsis Lactate w/ Reflex (06/11/2024 8:32 PM CDT) [facility] Sepsis Lactate 4.3(C) 0.7 - 2.0 mmol/L Comment:Critical result call ed to and read back by fadi jha (er) on 06/11/2024 21:17:39 CDT to josi scott. Blood 06/11/2024 8:32 PM CDT 06/11/2024 8:38 PM CDT Abby HERNANDEZ LAB BLOOD ORDERABLES Alea l Result [facility]AN [facility] ([place]) [address] [place] [address] [place] [address] * (ABNORMAL) Troponin T high-sensitivity series (baseline, 2hr, 4hr, 6hr) (06/11/2024 8:06 PM CDT) [facility] Trop T hs 78(H) <=14 ng/L Comment: Interpretive Data For further hscTnT resources including the diagnostic algorithm and an aid in interpretation, copy and paste this link: https://nrl.testcatalog.org/show/hsTrop Current Interpretive Data last revised 2020. Blood 06/11/2024 8:06 PM CDT 06/11/2024 8:15 PM CDT Abby HERNANDEZ LAB BLOOD ORDERABLES Alea l Result [facility] ([place]) [address] [facility] [place] [address] * Influenza A/B, RSV, and COVID-19 PCR Nasopharyngeal (06/11/2024 8:06 PM CDT) [facility] COVID-19 RNA Negative Negative Influenza A RNA Negative Negative [facility] ([place]) Influenza B RNA Negative Negative [facility] ([place]) RSV RNA Negative Negative [facility] ([place]) Comment: Interpretive data: Testing performed by [facility]. This test is performed using the [employer] Xpert Xpress CoV-2/Flu/RSV plus assay. This is a multiplex, real- time reverse transcriptase PCR assay intended for the qualitative detection of nucleic acid from SARS-CoV-2, influenza A, influenza B, and respiratory syncytial virus. This assay has been cleared by the [place] Food and Drug administration. The performance characteristics have been verified by the [facility]. Results must be considered in the clinical context, and a negative result does not rule out infection. Interpretive Data last revised 2023 Nasopharyngeal 06/11/2024 8: 06 PM CDT 06/11/2024 8:15 PM CDT Narrative [facility] ([place]) - 06/11/2024 8:56 PM CDT Is the Patient experiencing symptoms consistent with COVID?->Yes Abby HERNANDEZ LAB MICROBIOLOGY - GENERA L ORDERABLES Final Result [facility] ([place]) [address] [facility] [place] [address] * (ABNORMAL) eGFR (06/11/2024 8:06 PM CDT) [...] LAB BLOOD ORDERABLES Alea baldomero Result [facility] ([place]) [address] [facility] [place] [address] * (ABNORMAL) Differential, auto (06/11/2024 8:06 PM CDT) Neutrophil abs 9.0(H) 1.5 - 6.5 K/cumm Imm gran abs 0.1 0.0 - 0.1 K/cumm [facility] ([place]) Lymphocyte abs 2.4 0.8 - 3.3 K/cumm [facility] ([place]) Monocyte abs 0.6 0.2 - 0.8 K/cumm [facility] ([place]) Eosinophil abs 0.1 0.0 - 0.5 K/cumm [facility] ([place]) Basophil abs 0.0 0.0 - 0.1 K/cumm [facility] ([place]) Neutrophil pct 73.9 % [facility] ([place]) Comment: Interpretive Data Percent cell count reference [...] HERNANDEZ LAB BLOOD ORDERABLES Alea l Result [facility]ONATA[facility] ([place]) [address] [facility] [place] [address] * (ABNORMAL) Pro B-type natriuretic peptide (06/11/2024 [...] Alea alexandre Result [facility] ([place]) [address] [facility] [place] [address] * (ABNORMAL) CBC with auto differential (06/11/2024 [...] ORDERABLES Alea l Result Performing Organization Address [facility] Co de Phone Number [facility] [address] [place] [address] * (ABNORMAL) Hemoglobin A1c (06/11/2024 8:06 PM CDT) Hgb A1C 6.1(H) 4.0 - 5.6 % Estimated Average Glucose 128 mg/dL [facility] ([place]) Comment: The ADA recommends reporting an estimated Average Glucose (eAG) with all Hemoglobin A1c results using the equation derived from a study of 507 normal and diabetic adults. Minority populations were underrepresented and children were not included. (Diabetes Care 31:5417-4488, 2008). The eAG is not equivalent to a fasting glucose. Blood 06/11/2024 8:06 PM CDT 06/12/2024 2:38 AM CDT Winsome Healy MD LAB BLOOD ORDERABLES Final Resul t Performing Organization Address [facility] Co de Phone Number [facility] ([place]) [address] [place] [address] * (ABNORMAL) Comprehensive metabolic panel (06/11/2024 8:06 PM CDT) Sodium 131(L) 135 - 145 mmol/L Potassium, pl 5.5(H) 3.3 - 4.9 mmol/L [facility] ([place]) Comment:Slightly Hemolyzed S pecimen. Results may be affected. Chloride 98 97 - 110 mmol/L [facility] ([place]) CO2 15(L) 22 - 32 mmol/L [facility] ([place]) Anion gap 18(H) 2 - 15 mmol/L [facility] ([place]) BUN 15 6 - 25 mg/dL [facility] ([place]) Creatinine 1.07 0.60 - 1.10 mg/dL [...] HERNANDEZ LAB BLOOD ORDERABLES Alea l Result [facility] ([place] [address] [facility] Department of [facility] [place], [place] [id number] * ECG 12 lead (06/11/2024 7:41 PM CDT) 06/11/2024 7:41 PM CDT Narrative [facility] - 06/12/2024 7:17 AM CDT Vent Rate: 102 bpm RR Interval: 583 msec [place] Interval: 146 msec QRS Duration: 74 msec QT Interval: 334 msec QTC Interval: 393 msec P-R-T Dawson: 35 - -12 - 7 degrees IMPRESSION: SINUS TACHYCARDIA POSSIBLE RIGHT VENTRICULAR CONDUCTION DELAY [RSR (QR) IN V1/V2] ABNORMAL RHYTHM ECG Electronically Signed By: Rafal Pacheco MD us Brien Berry MD ECG ORDERABLES Final Resul t [facility] from Last 3 Months Insurance HEALTHCARE Advance Directives For more information, please contact: [phone] * Full Code (Latest Code Status on File) Date Activated Date Inactivated Comments 06/12/2024 5:06 AM 06/13/2024 11:16 PM * Full Code Date Activated Date Inactivated Comments 06/12/2024 4:48 AM 06/12/2024 5:06 AM Care Teams Pay Per Click Strategist Relationship Specialty Start Date End Date Jose Miguel Stewart MD [address] [place] [address] PCP - General Emergency Medicine 06/11/24
--- OUTSIDE RECORDS SUMMARY | 2024-09-06 10:09 | XMS_ITS | Clinical Summary ---
Author Organization [facility] Address [address] [place] [address] Care Team Providers Care Information Resources Director Name Role Phone Jose Miguel Stewart MD [...] Date Type Department Care Team Description 06/20/2024 [facility] Post Discharge Follow up phone call [facility] [address] [place], [place] [id number] KemarYoli sanchez Jolynn 06/11/2024 7:36 PM CDT - 06/13/2024 6:30 PM CDT Hospital Encounter [facility] Acute Medicine [address] [place] [address] Winsome Healy MD Lo Bianco, Salvador, MD [...] Smokeless Tobacco: Never Tobacco Cessation:Counseling Given: No [facility] Utilities Answer Date Recorded In the past 12 months has [employer], gas, oil, or water company threatened [...] often do you attend chur ch or sikhism services? Never 06/12/2024 Do you belong to any clubs o r organizations such as voodoo groups, unions, fraternal or athletic groups, or [...] any time in the past 12 m [facility], were you homeless or living in a snf (including now)? No 06/12/2024 Personal Safety Answer Date Recorded Have you ever been in or are you currently in a harmful physical or emotional relationship or is someone making you feel afraid or unsafe? Denies 06/12/2024 Comments Unknown Sex and Gender Information Value Date Recorded Sex Assigned at Not on file Legal Sex Female 2:43 PM [employer] Gender Identity Not on file Sexual Orientation [...] CRITICAL CARE Routine 06/12/2024 3:33 AM CDT RI CRITICAL CARE ILL/INJURED PATIENT INIT 30-74 MIN [...] 06/13/2024 5:58 AM CDT Narrative JONATHAN XAVIER ([place]) - 06/13/2024 6:24 AM CDT Do not [...] BLOOD ORDERABLES F inal Result JONATHAN XAVIER ([place]) 1 [facility] [place] [address] * (ABNORMAL) eGFR (06/13/2024 12:19 AM CDT) [...] BLOOD ORDERABLES Final Resul t JONATHAN XAVIER ([place]) 1 [facility] [place] [address] * (ABNORMAL) Differential, auto (06/13/2024 12:19 AM [...] Neutrophil pct 63.8 % [facility] ([place]) Comment: Interpretive Data Percent cell count reference [...] Resul t JONATHAN [facility] ([place]) 1 [facility] [place] [address] * (ABNORMAL) CBC with auto differential (06/13/2024 [...] BLOOD ORDERABLES Final Result Performing Organization Address City/[facility]/ZIP Co de Phone Number JONATHAN XAVIER ([place]) [address] [facility] [place] [address] * (ABNORMAL) aPTT (06/13/2024 12:19 AM CDT) aPTT 90(H) 28 - 38 sec [facility] ([place]) Comment: Interpretive Data Heparin therapeutic range: 66.0 - 100.0 seconds. Range based on correlation with therapeutic heparin activity range of 0.3 - 0.7 Units/mL. Current interpretive data was last revised on 2022. Blood 06/13/2024 12:1 9 AM CDT 06/13/2024 12:53 AM CDT Narrative [facility] ([place]) - 06/13/2024 1:26 AM CDT Do not [...] ORDERABLES F inal Result Performing Organization Address City/[facility]/ZIP Co de Phone Number JONATHAN XAVIER ([place]) 1 [facility] Department [place] [address] * (ABNORMAL) Basic metabolic panel (06/13/2024 12:19 AM CDT) Sodium 137 135 - 145 mmol/L Potassium, pl 3.8 3.3 - 4.9 mmol/L [facility] ([place]) Chloride 103 97 - 110 mmol/L [facility] ([place]) CO2 21(L) 22 - 32 mmol/L [facility] ([place]) Anion gap 13 2 - 15 mmol/L [facility] ([place]) BUN 26(H) 6 - 25 mg/dL [facility] ([place]) Creatinine 1.13(H) 0.60 - 1.10 mg/dL [...] BLOOD ORDERABLES Final Result Performing Organization Address City/[facility] Co de Phone Number [facility] ([place]) 1 [facility] [place] [address] * ABO / Rh Confirmation Testing (06/12/2024 6:59 PM CDT) ABO/Rh Confirmation A Positive [facility] Blood 06/12/2024 6:59 PM CDT 06/12/2024 7:04 PM CDT Domingo Emery MD LAB BLOOD ORDERABLES Final Result [facility] ([place]) 1 [facility] [employer] [place] [place] [address] [facility] * (ABNORMAL) aPTT (06/12/2024 5:04 PM [...] MD LAB BLOOD ORDERABLES Final Result JONATHAN CaponeHAMLIN) 1 [facility] [place] [address] * US Vein Duplex Lower Extremity Bilateral [...] Donn Valle M.D. KR: ANDRE Report ID: [id number] Reading Location: [id number] Procedure Note Donn Valle MD - 06/12/2024 [...] Donn Valle M.D. KR: ANDRE Report ID: [id number] Reading Location: [place] [address] Domingo Emery MD IMG US PROCEDURES Final [...] Resul t JONATHAN XAVIER ([place]) 1 [facility] Department of Laboratories [place], [place] [id number] * TRANSTHORACIC ECHO (TTE) COMPLETE W DOPPLER/CF W CONTRAST (06/12/2024 10:37 AM CDT) LV EF 62 % CONS SCIMAGE Anatomical Region Laterality Modality Ultrasound 06/12/2024 10:1 3 AM CDT Narrative 06/12/2024 2:08 PM CDT [address] [address] Echocardiogram Report Patient Name: ANSON MILLER M : 1945 Study Date: 06/12/2024 10:13:02 AM Gender: F Tech: NL Location: [id number] Ref Provider: JACEK JAMISON Height(Cm): 142 BSA: [...] Procedure Note Jak Wilson MD - 06/12/[address] [place] [address] Echocardiogram Report Patient Name: ANSON MILLER M : 1945 Study Date: 06/12/2024 10:13:02 AM Gender: F Tech: Location: [place] [address] Ref Provider: JACEK JAMISON Height(Cm): 142 BSA: [...] 06/12/2024 8:51 AM CDT Narrative JONATHAN XAVIER ([place]) - 06/12/2024 9:24 AM CDT Collect immediately after alteplase infusion ends and then every 2 hours until aPTT is less than 76 seconds. Once aPTT is less than 76 seconds, alert provider to discontinue order. Winsome Healy MD LAB BLOOD ORDERABLES Final Resul t JONATHAN [facility] ([place]) 1 [facility] [employer] [place] [address] * ABO/Rh (06/12/2024 7:32 AM CDT) ABO/Rh A Positive Blood 06/12/2024 7:32 AM CDT 06/12/2024 7:40 AM CDT Narrative JONATHAN XAVIER ([place]) - 06/12/2024 8:21 AM CDT Has the patient had Daratumumab or Isatuximab in the past 6 months?->Unknown Domingo Emery MD LAB BLOOD BANK TEST ORDERA BLES Final Result JONATHAN [facility] ([place]) 1 [facility] [employer] [place] [place] [address] * Antibody screen (06/12/2024 7:32 AM CDT) [place], indirect, Gel Interpretation Negative ABSC Blood 06/12/2024 7:32 AM CDT 06/12/2024 7:40 AM CDT Narrative JONATHAN XAVIER ([place]) - 06/12/2024 8:21 AM CDT Has the patient had Daratumumab or Isatuximab in the past 6 months?->Unknown Domingo Emery MD LAB BLOOD BANK TEST ORDERA BLES Final Result JONATHAN XAVIER ([place]) 1 [facility] [employer] [place] [place] [address] * (ABNORMAL) aPTT (06/12/2024 6:34 AM CDT) aPTT 41(H) 28 - 38 sec JONATHAN XAVIER ([place]) Comment: Interpretive Data Heparin therapeutic range: 66.0 - 100.0 seconds. Range based on correlation with therapeutic heparin activity range of 0.3 - 0.7 Units/mL. Current interpretive data was last revised on 2022. Blood 06/12/2024 6:34 AM CDT 06/12/2024 6:42 AM CDT Narrative JONATHAN XAVIER ([place]) - 06/12/2024 6:54 AM CDT Collect immediately after alteplase infusion ends and then every 2 hours until aPTT is less than 76 seconds. Once aPTT is less than 76 seconds, alert provider to discontinue order. Winsome Healy MD LAB BLOOD ORDERABLES Final Resul t JONATHAN XAVIER ([place]) 1 [facility] [employer] [place] [place] [address] * (ABNORMAL) Sodium level (06/12/2024 6:34 AM CDT) Sodium 134(L) 135 - 145 mmol/L Blood 06/12/2024 6:34 AM CDT 06/12/2024 6:42 AM CDT us Jacek Jamison MD LAB BLOOD ORDERABLES Final Result JONATHAN XAVIER ([place]) 1 [facility] [place] [address] * (ABNORMAL) Potassium (06/12/2024 6:34 AM CDT) Potassium, pl 5.7(H) 3.3 - 4.9 mmol/L Comment:Moderately Hemolyzed Specimen. Results may be affected. Blood 06/12/2024 6:34 AM CDT 06/12/2024 6:42 AM CDT Jacek Jamison MD LAB BLOOD ORDERABLES Final Result Performing Organization Address City/[facility] Co de Phone Number JONATHAN XAVIER ([place]) [address] [facility] [place] [address] * Phosphorus (06/12/2024 6:34 AM CDT) Phosphorus, pl 3.7 2.3 - 4.5 mg/dL Blood 06/12/2024 6:34 AM CDT 06/12/2024 6:42 AM CDT Jacek Jamison MD LAB BLOOD ORDERABLES Final Result JONATHAN XAVIER ([place]) 1 [facility] [place] [address] * Magnesium (06/12/2024 6:34 AM CDT) Magnesium 2.3 1.4 - 2.5 mg/dL Blood 06/12/2024 6:34 AM CDT 06/12/2024 6:42 AM CDT Jacek Jamison MD LAB BLOOD ORDERABLES Final Result JONATHAN XAVIER AM[place]DA 1 [facility] Department [place] [address] * Critical Care (06/12/2024 3:33 AM CDT) [...] plan with the ICU team and other medical/unix consultant staff, making frequent assessments and decisions [...] IN CLINIC/BEDSIDE ORD ERABLES Final Result * RI CRITICAL CARE ILL/INJURED PATIENT INIT 30-74 MIN [...] Avila M.D. AR: JOSE A Report ID: [id number] Reading Location: [place] [address] Procedure Note Dayne Avila MD - 06/12/2024 [...] Avila M.D. AR: JOSE A Report ID: [id number] Reading Location: [place] [address] us Winsome Healy MD IMG CT PROCEDURES [...] l Result JONATHAN XAVIER ([place]) 1 [facility] [place] [address] * (ABNORMAL) D-dimer, quantitative (06/11/2024 11:05 PM [...] ORDERABLES Final Resul t Performing Organization Address [facility] Co de Phone Number JONATHAN XAVIER ([place]) [address] [facility] [place] [address] * (ABNORMAL) aPTT (06/11/2024 11:04 PM CDT) aPTT 27(L) 28 - 38 sec JONATHAN [facility] ([place]) Comment: Interpretive Data Heparin therapeutic range: 66.0 - 100.0 seconds. Range based on correlation with therapeutic heparin activity range of 0.3 - 0.7 Units/mL. Current interpretive data was last revised on 2022. Blood 06/11/2024 11:0 4 PM CDT 06/12/2024 2:20 AM CDT Narrative [facility] ([place] - 06/12/2024 2:27 AM CDT Baseline prior to heparin initiation Winsome Healy MD LAB BLOOD ORDERABLES Final Resul t Performing Organization Address [facility]UST de Phone Number JONATHAN XAVIER ([place]) 1 [facility] [place] [address] * Protime-INR (06/11/2024 11:04 PM CDT) PT 11.7 9.7 - 13.0 sec JONATHAN [facility] ([place]) INR 1.08 0.90 - 1.20 JONATHAN [facility] ([place]) Comment: Interpretive data Oral anticoagulant therapeutic ranges: [...] Resul t JONATHAN XAVIER ([place]) 1 [facility] [place] [address] * Blood culture Blood Peripheral (06/11/2024 8:59 PM CDT) Report Final Report: No growth Comment:Testing performed by : [facility], 1 [facility], [place]., [address] Blood (Peripheral) 06/11/2024 8:59 PM CDT 06/12/2024 [...] performance characteristics have been verified by the [facility] Microbiology Laboratory. For questions about this culture, contact the Microbiology Laboratory at [phone]. Interpretive data was last revised on 24. Abby HERNANDEZ LAB MICROBIOLOGY - GENERA L ORDERABLES Final Result JONATHAN XAVIER ([place]) 1 [facility] [place] [address] * Blood culture Blood Peripheral (06/11/2024 8:51 PM CDT) Report Final Report: No growth Comment:Testing performed by : [facility], [address] [place]., [address] Blood (Peripheral) 06/11/2024 8:51 PM CDT 06/12/2024 1:28 AM CDT Narrative JONATHAN XAVIER ([place]) - 06/16/2024 7:00 AM CDT Draw Blood [...] performance characteristics have been verified by the [facility] Microbiology Laboratory. For questions about this culture, contact the Microbiology Laboratory at [phone]. Interpretive data was last revised on 24. us Abby HERNANDEZ LAB MICROBIOLOGY - GENERA L ORDERABLES Final Result JONATHAN XAVIER ([place]) 1 [facility] Department [place] [address] * XR Chest 1 Vw Portable (06/11/2024 [...] Celeste Soto M.D. FT: FT Report ID: [id number] Reading Location: [id number] Procedure Note Celeste Tabares MD - 06/11/2024 [...] Celeste Soto M.D. FT: FT Report ID: [id number] Reading Location: [place] [address] us Abby HERNANDEZ IMG XR PROCEDURES Final R esult * (ABNORMAL) Sepsis Lactate w/ Reflex (06/11/2024 8:32 PM CDT) [facility] Sepsis Lactate 4.3(C) 0.7 - 2.0 mmol/L Comment:Critical result call ed to and read back by fadi jha (er) on 06/11/2024 21:17:39 CDT to josi scott. Blood 06/11/2024 8:32 PM CDT 06/11/2024 8:38 PM CDT Abby HERNANDEZ LAB BLOOD ORDERABLES Alea l Result [facility] [place]) 1 [facility] [place] [address] * (ABNORMAL) Troponin T high-sensitivity series (baseline, 2hr, 4hr, 6hr) (06/11/2024 8:06 PM CDT) Pathologist [facility] Trop T hs 78(H) <=14 ng/L Comment: Interpretive Data For further hscTnT resources including the diagnostic algorithm and an aid in interpretation, copy and paste this link: https://nrl.testcatalog.org/show/hsTrop Current Interpretive Data last revised 2020. Blood 06/11/2024 8:06 PM CDT 06/11/2024 8:15 PM CDT Abby HERNANDEZ LAB BLOOD ORDERABLES Alea l Result Performing Organization Address City/[facility]/ZIP Co de Phone Number [facility] ([place]) [address] [place] [address] [place] [address] * Influenza A/B, RSV, and COVID-19 PCR Nasopharyngeal (06/11/2024 8:06 PM CDT) Pathologist [facility] COVID-19 RNA Negative Negative Influenza A RNA Negative Negative [facility] ([place]) Influenza B RNA Negative Negative [facility] ([place]) RSV RNA Negative Negative [facility] ([place]) Comment: Interpretive data: Testing performed by [facility]. This test is performed using the [employer] Xpert Xpress CoV-2/Flu/RSV plus assay. This is a multiplex, real- time reverse transcriptase PCR assay intended for the qualitative detection of nucleic acid from SARS-CoV-2, influenza A, influenza B, and respiratory syncytial virus. This assay has been cleared by the [place] Food and Drug administration. The performance characteristics have been verified by the [facility]. Results must be considered in the clinical context, and a negative result does not rule out infection. Interpretive Data last revised 2023 Nasopharyngeal 06/11/2024 8: 06 PM CDT 06/11/2024 8:15 PM CDT Narrative [facility] ([place]) - 06/11/2024 8:56 PM CDT Is the Patient experiencing symptoms consistent with COVID?->Yes Abby HERNANDEZ LAB MICROBIOLOGY - GENERA L ORDERABLES Final Result Performing Organization Address City/[facility]/ZIP Co de Phone Number JONATHAN XAVIER ([place]) 1 [facility] [place] [address] * (ABNORMAL) eGFR (06/11/2024 8:06 PM CDT) [...] LAB BLOOD ORDERABLES Alea alexandre Result JONATHAN [facility] ([place]) 1 [facility] [place] [address] * (ABNORMAL) Differential, auto (06/11/2024 8:06 PM [...] alexandre Result JONATHAN DUC ([place]) 1 [facility] [place] [address] * (ABNORMAL) Pro B-type natriuretic [...] BLOOD ORDERABLES Alea alexandre Result JONATHAN XAVIER ([place]) 1 [facility] Department of Laboratories [place], [place] [id number] * (ABNORMAL) CBC with auto differential (06/11/2024 8:06 PM CDT) WBC 12.2(H) 3.8 - 9.9 K/cumm Hgb 11.1(L) 11.9 - 15.5 g/dL JONATHAN XAVIER ([place]) Hct 34.3(L) 35.6 - 45.5 % JONATHAN XAVIER ([place]) Plt 306 150 - 400 K/cumm [facility] ([place]) MPV 9.4 9.1 - 12.3 fL JONATHAN XAVIER ([place]) RBC 3.54(L) 3.90 - 5.20 M/cumm [facility] ([place] MCV 96.9(H) 81.3 - 96.4 fL JONATHAN [facility] ([place]) MCH 31.4 27.1 - 33.3 pg JONATHAN [facility] ([place]) MCHC 32.4 32.3 - 35.7 g/dL [facility] ([place]) RDW CV 13.1 11.1 - 14.9 % [facility] ([place]) RDW SD 46.6 35.7 - 48.1 fL [facility] ([place]) NRBC abs 0.00 0.00 - 0.01 K/cumm [facility] ([place]) Blood 06/11/2024 8:06 PM CDT 06/11/2024 8:15 PM CDT us Abby HERNANDEZ LAB BLOOD ORDERABLES Alea alexandre Result Performing Organization Address City/State/[facility] Co de Phone Number JONATHAN CaponeHAMLIN) 1 [facility] Department of Laboratories [place] [id number] * (ABNORMAL) Hemoglobin A1c (06/11/2024 8:06 PM CDT) Hgb A1C 6.1(H) 4.0 - 5.6 % Estimated Average Glucose 128 mg/dL JONATHAN [facility] ([place]) Comment: The ADA recommends reporting an estimated Average Glucose (eAG) with all Hemoglobin A1c results using the equation derived from a study of 507 normal and diabetic adults. Minority populations were underrepresented and children were not included. (Diabetes Care 31:6445-6120, 2008). The eAG is not equivalent to a fasting glucose. Blood 06/11/2024 8:06 PM CDT 06/12/2024 2:38 AM CDT us Winsome Healy MD LAB BLOOD ORDERABLES Final Resul t JONATHAN XAVIER ([place]) 1 [facility] [place] [address] * (ABNORMAL) Comprehensive metabolic panel (06/11/2024 8:06 [...] ORDERABLES Alea l Result Performing Organization Address City/[facility] Co de Phone Number JONATHAN XAVIER ([place]) [address] [place] [address] [place] [address] * ECG 12 lead (06/11/2024 7:41 PM CDT) 06/11/2024 7:41 PM CDT Narrative [facility] - 06/12/2024 7:17 AM CDT Vent Rate: 102 bpm RR Interval: 583 msec RI Interval: 146 msec QRS Duration: 74 msec QT Interval: 334 msec QTC Interval: 393 msec P-R-T [place]: 35 - -12 - 7 degrees IMPRESSION: SINUS TACHYCARDIA POSSIBLE RIGHT VENTRICULAR CONDUCTION DELAY [RSR (QR) IN V1/V2] ABNORMAL RHYTHM ECG Electronically Signed By: Rafal Pacheco MD us Brien Berry MD ECG ORDERABLES Final Resul t Performing Organization Address City/[facility] Co de Phone Number [facility] from Last 3 Months Insurance [facility] Advance Directives For more information, please contact: [phone] * Full Code (Latest Code Status on File) Date Activated Date Inactivated Comments 06/12/2024 5:06 AM 06/13/2024 11:16 PM * Full Code Date Activated Date Inactivated Comments 06/12/2024 4:48 AM 06/12/2024 5:06 AM Care Teams Information Resources Director Relationship Specialty Start Date End Date Jose Miguel Stewart MD [address] [place] [address] PCP - General Emergency Medicine 06/11/24
[2024-09-06 10:16] LABS: Basophils Absolute Auto 0.1 K/mm3 (0.0-0.1); Basophils Percent Auto 0.6 % (0.2-1.2); Eosinophils Absolute Auto 0.2 K/mm3 (0-0.3); Eosinophils Percent Auto 1.3 % (0-4.4); Hematocrit 39.3 % (37.0-47.0); Hemoglobin 12.4 g/dL (12.0-15.0); Immature Granulocyte Absolute 0.02 K/mm3 (0.00-0.031); Immature Granulocyte Percent A 0.2 % (0-0.5); Lymphocytes Absolute Auto 3.62 K/mm3 (0.9-3.2); Lymphocytes Percent Auto 32.6 % (18.3-44.2); Mean Corpuscular HGB Conc 31.6 g/dl (32-36); Mean Corpuscular Hemoglobin 30.8 pg (26-34); Mean Corpuscular Volume 97.5 fl (80-100); Mean Platelet Volume 9.4 fl (7.4-10.4); Monocytes Absolute Auto 0.8 K/mm3 (0.1-0.6); Monocytes Percent Auto 6.9 % (2.6-8.5); Neutrophils Absolute Auto 6.5 K/mm3 (1.3-6.7); Neutrophils Percent Auto 58.4 % (45.5-73.1); Platelet Count Result 288 k/mm3 (150-375); Red Blood Count 4.03 M/mm3 (4.2-5.4); Red Cell Distribution Width 16.7 % (11.5-14.5); White Blood Count 11.1 K/mm3 (4.5-10.0)
[2024-09-06 13:22] LABS: Alanine Aminotransferase 15 U/L (6-35); Albumin Level 4.4 g/dL (3.5-5.1); Alkaline Phosphatase 66 U/L (38-126); Anion Gap 9 mmol/L (4-12); Aspartate Amino Transferase 68 U/L (14-36); Bilirubin,Total 0.4 mg/dL (0.2-1.3); Blood Urea Nitrogen 15 mg/dL (7-17); Calcium 9.7 mg/dL (8.4-10.2); Carbon Dioxide 22 mmol/L (22-30); Chloride 107 mmol/L (98-107); Cholesterol 250 mg/dL (0-200); Estimated Glomerular Filt Rate > 60; Glucose 99 mg/dL (65-110); HDL Direct 92 mg/dL; Potassium 4.9 mmol/L (3.4-5.0); Sodium 138 mmol/L (137-145); Total Protein 7.7 g/dL (6.3-8.2); Triglycerides 110 mg/dL (<150)
[2024-09-06 13:33] LABS: LDL Cholesterol Direct 104 mg/dL
[2024-09-06 14:40] LABS: Vitamin D 25 Hydroxy 69.4 ng/mL
== END 2024-09-06 10:00 | disposition home or self-care (01) ==
PROVIDERS: PCP Emergency Medicine; Visit Provider Emergency Medicine
DX: Z13.6 Encounter for screening for cardiovascular disorders (principal); I10 Essential (primary) hypertension; E78.5 Hyperlipidemia, unspecified; E55.9 Vitamin D deficiency, unspecified
CPT/HCPCS: 36415; 80053; 80061; 82306; 85025

== ENCOUNTER 2025-02-06 11:16 | Outpatient (CLI) | payer OTHER, SELFPAY ==
--- NOTE | ~2025-02-06 | US_ITS ---
US breast RT limited 02/06/2025 11:47 Indication: Follow-up right breast masses. Procedure: High-resolution Limited ultrasound of the right breast Comparison: 06/07/2024 Findings: In the area of mastectomy scar there are 2 stable hypoechoic oval masses, largest measuring 4 mm, unchanged compared with previous examination, likely benign. Impression: 1: Probable benign hypoechoic masses of the right breast medially at the mastectomy scar measuring 4 mm or less. BI-RADS CATEGORY 3-PROBABLY BENIGN FINDING RECOMMENDATION: Six-month follow-up diagnostic right mammogram and Limited right breast ultrasound recommended. Reviewed, dictated and finalized at location B. 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 BI-RADS CATEGORY 3-PROBABLY BENIGN FINDING RECOMMENDATION: Six-month follow-up diagnostic right mammogram and Limited righ t breast ultrasound recommended.
--- OUTSIDE RECORDS SUMMARY | 2025-02-06 12:21 | XMS_ITS | Clinical Summary ---
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 Name Role Phone Jose Miguel Stewart MD Primary Care Provider [phone] Allergies No known active allergies Medications cholecalciferol, [...] Encounters Date Type Department Care Team Description 01/14/2025 External Device Data STL ABSTRACTION Provider, Abstract 01/02/2025 1:00 PM CDT Office Visit [facility] Oncology and Hematology - [place] [address] [place] [id number] Geoff Mirza MD Malignant neoplasm of central portion of right breast in female, estrogen receptor positive (CMS/HCC) (Primary Dx); Chronic anemia 12/26/2024 Orders Only Initial Department [address] [place]: [place] [address] Provider, Historical 11/26/2024 External Device Data STL ABSTRACTION Provider, Abstract 11/12/2024 External Device Data STL ABSTRACTION Provider, Abstract [...] Sign Reading Time Taken Comments Blood Pressure 129/66 01/02/2025 1:07 PM CDT Pulse 78 01/02/2025 1:07 PM CDT Temperature 36.1 C (96.9 F) 01/02/2025 1:07 PM CDT Respiratory Rate 16 01/02/2025 1:07 PM CDT Oxygen Saturation 95% 01/02/2025 1:07 PM CDT Inhaled Oxygen Concentration - - Weight 60.3 kg (133 lb) 01/02/2025 1:07 PM CDT Height 144.8 cm (4' 9) 09/21/2023 1:26 PM CDT Body Mass Index 28.78 09/21/2023 1:26 PM CDT Plan of Treatment Upcoming Encounters Date Type Department Care Team (Late st Contact Info) Description 05/08/2025 1:00 PM 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 Office Visit [facility] Oncology and Hematology - [place] [address] [facility] [address] [place] [address] Geoff Mirza MD [address] [facility] [address] [place] [address] Health Maintenance Due Date Last Done Comments DTAP/TDAP/TD VACCINES (1 - Tdap) 1965 Lung Cancer Screening 1996 PNEUMOCOCCAL VACCINE 50+ YEARS (1 of 1 - PCV) 04/21/18 97 ZOSTER VACCINE (1 of 2) 1996 OSTEOPOROSIS SCREENING 2011 RSV VACCINE (60+ or ) (1 - 1-dose 75+ series) 2021 INFLUENZA VACCINE (#1) 2024 COVID-19 Vaccine (2 - season) 2024 Procedures Procedure Name Priority Date/Time Associated Diagnosis Comments CBC WITH DIFFERENTIAL Routine 12/26/2024 11:37 AM CDT VITAMIN B12 AND FOLATE Routine 11:37 AM CDT CANCER ANTIGEN 15-3 Routine 12/26/2024 1 1:37 AM CDT FERRITIN Routine 12/26/2024 11:37 AM CDT COMPREHENSIVE METABOLIC PANEL Routine 12/26/2024 11:37 AM CDT IRON, TIBC, AND PERCENT SATURATION Routine 12/26/2024 11:37 AM CDT D-DIMER Routine 11/08/2024 2:17 PM CDT Other acute pulmonary embolism without acute cor pulmonale (CMS/HCC) from Last 3 Months Results * VITAMIN B12 AND FOLATE (12/26/2024 11:37 AM CDT) VITAMIN B12 345 200 - 1100 pg/mL [facility] Comment: Please Note: Although the reference range for vitamin B12 is 200-1100 pg/mL, it has been reported that between 5 and 10% of patients with values between 200 and 400 pg/mL may experience neuropsychiatric and hematologic abnormalities due to occult B12 deficiency; less than 1% of patients with values above 400 pg/mL will have symptoms. FOLATE, SERUM 10.0 ng/mL [facility] Comment: Reference Range Low: <3.4 Borderline: 3.4-5.4 Normal: >5.4 Test Performed at: [facility] [address] [place] [address] Cruz Cloud MD 12/26/2024 11:3 7 AM CDT 12/26/2024 11:41 AM CDT Geoff Mirza MD CHEMISTRY ORDERABLES Final Resu lt Performing Organization Address [facility] Co de Phone Number [facility] [phone] [facility] [address] [place] [phone] * IRON, TIBC, AND PERCENT SATURATION (12/26/2024 11:37 AM CDT) IRON 83 45 - 160 mcg/dL [facility] TIBC 344 250 - 450 mcg/dL (calc) [facility] IRON % SATURATION 24 16 - 45 % (calc) [facility] Comment: Test Performed at: [facility] [place] [address] Cruz Cloud MD 12/26/2024 11:3 7 AM CDT 12/26/2024 11:41 AM CDT Geoff Mirza MD CHEMISTRY ORDERABLES Final Resu lt Performing Organization Address [facility] Co de Phone Number [facility] [phone] [facility] [address] [place] [phone] * CANCER ANTIGEN 15-3 (12/26/2024 11:37 AM CDT) CA 15-3 8 <32 U/mL [facility] Comment: This test was performed using the Siemens (CM Sistemi) chemiluminescent method. Values obtained from different assay methods cannot be used interchangeably. CA 15-3 levels, regardless of value, should not be interpreted as absolute evidence of the presence or absence of disease. Test Performed at: [facility] [place] [address] Cruz Cloud MD 12/26/2024 11:3 7 AM CDT 12/26/2024 11:41 AM CDT us Geoff Mirza MD CHEMISTRY ORDERABLES Final Resu lt [facility] [phone] [facility] [address] [phone] * CBC WITH DIFFERENTIAL (12/26/2024 11:37 AM CDT) WBC 8.1 3.8 - 10.8 Thousand/u L [facility] RBC 3.87 3.80 - 5.10 Million/uL [facility] HEMOGLOBIN 12.7 11.7 - 15.5 g/dL [facility] HEMATOCRIT 38.6 35.0 - 45.0 % [facility] MCV 99.7 80.0 - 100.0 fL [facility] MCH 32.8 27.0 - 33.0 pg [facility] MCHC 32.9 32.0 - 36.0 g/dL [facility] Comment: For adults, a slight decrease in the calculated MCHC value (in the range of 30 to 32 g/dL) is most likely not clinically significant; however, it should be interpreted with caution in correlation with other red cell parameters and the patient's clinical condition. RDW 13.1 11.0 - 15.0 % [facility] PLATELETS 319 140 - 400 Thousand/u L [facility] MPV 10.3 7.5 - 12.5 fL [facility] NEUTROPHIL ABSOLUTE 3,767 1,500 - 7,800 cells/uL [facility] LYMPHOCYTE ABSOLUTE 3,345 850 - 3,900 cells/uL [facility] MONOCYTE ABSOLUTE 729 200 - 950 cells/uL [facility] EOSINOPHIL ABSOLUTE 203 15 - 500 cells/uL [facility] BASOPHILS ABSOLUTE 57 0 - 200 cells/uL [facility] NEUTROPHIL 46.5 % [facility] LYMPHOCYTES 41.3 % [facility] MONOCYTE 9.0 % [facility] EOSINOPHILS 2.5 % [facility] BASOPHILS 0.7 % [facility] Comment: Test Performed at: [facility] [address] [place] [address] Cruz Cloud MD 12/26/2024 11:3 7 AM CDT 12/26/2024 11:41 AM CDT us Geoff Mirza MD HEMATOLOGY ORDERABLES Final Res ult Performing Organization Address [facility] Co de Phone Number [facility] [phone] [facility] [address] [place] [phone] * FERRITIN (12/26/2024 11:37 AM CDT) Pathologist [facility] FERRITIN 127 16 - 288 ng/mL [facility] Comment: Test Performed at: [facility] [address] [place] [address] Cruz Cloud MD 12/26/2024 11:3 7 AM CDT 12/26/2024 11:41 AM CDT us Geoff Mirza MD CHEMISTRY ORDERABLES Final Resu lt Performing Organization Address [facility] Co de Phone Number [facility] [phone] [facility] [address] * COMPREHENSIVE METABOLIC PANEL (12/26/2024 11:37 AM CDT) GLUCOSE 86 65 - 99 mg/dL [facility] Comment: Fasting reference interval BUN 21 7 - 25 mg/dL [facility] CREATININE 0.93 0.60 - 1.00 mg/dL [facility] GFR 63 > OR = 60 mL/min/1. 73m2 [facility] BUN/CREAT RATIO SEE NOTE: 6 - 22 (calc) [facility] Comment: Not Reported: BUN and Creatinine are within reference range. SODIUM 137 135 - 146 mmol/L [facility] POTASSIUM 4.5 3.5 - 5.3 mmol/L [facility] CHLORIDE 104 98 - 110 mmol/L [facility] CO2 24 20 - 32 mmol/L [facility] CALCIUM 9.9 8.6 - 10.4 mg/dL [facility] TOTAL PROTEIN 7.0 6.1 - 8.1 g/dL [facility] ALBUMIN 4.3 3.6 - 5.1 g/dL [facility] GLOBULIN 2.7 1.9 - 3.7 g/dL (calc) [facility] ALBUMIN/GLOBULIN RATIO 1.6 1.0 - 2.5 (calc) [facility] BILIRUBIN TOTAL 0.5 0.2 - 1.2 mg/dL [facility] ALKALINE PHOSPHATASE 55 37 - 153 U/L [facility] AST 13 10 - 35 U/L [facility] ALT 9 6 - 29 U/L [facility] Comment: Test Performed at: [facility] [id number] [place] [address] Cruz Cloud MD 12/26/2024 11:3 7 AM CDT 12/26/2024 11:41 AM CDT Geoff Mirza MD CHEMISTRY ORDERABLES Final Resu lt [facility] [phone] [facility] [address] [place] [address] * D-DIMER (11/08/2024 2:17 PM CDT) D-DIMER QUANT 0.48 <0.50 mcg/mL FEU [facility] Comment: Elevated D-dimer levels are associated with DIC, malignancies, inflammation, sepsis, surgery, trauma, and . A D-dimer result less than 0.5 mcg/mL FEU, in conjunction with a non-high clinical pre-test probability assessment model, excludes deep vein thrombosis and pulmonary embolism. However, since D-dimer values increase with age, the [employer] recommends an age-adjusted cut-off value in patients older than 50. The calculation for an age adjusted cut-off value is age (years) x 0.01 mcg/mL FEU. For example, the cut-off for a 70-year-old patient would be 71 x 0.01 mcg/mL FEU. For additional information, please refer to http://education.[employer]/faq/MXJ019 (This link is being provided for informational/educational purposes only.) FASTING:NO FASTING: NO [facility] [address] [place] [address] Cruz Cloud MD Blood 11/08/2024 2:17 PM CDT 11/08/2024 2:18 PM CDT us Geoff Mirza MD HEMATOLOGY ORDERABLES Final Res ult [facility] [phone] [facility] [address] [place] [address] from Last 3 Months Insurance [facility] MCR Care Teams Christmas Tree Contractor Relationship Specialty Start Date End Date Jose Miguel Stewart MD [address] [place] [address] PCP - General Internal Medicine 09/15/23
--- OUTSIDE RECORDS SUMMARY | 2025-02-06 12:21 | XMS_ITS | Clinical Summary ---
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 Gender Identity Not on file Sexual Orientation Not on file Plan of Treatment Health Maintenance Due Date Last Done Comments Hepatitis C Virus (HCV) Screening 1945 TdaP Immunization 1945 Pneumococcal Immunization (5 0+ years) (2 of 2 - PCV) 01/23/2021 01/24/2020 Respiratory Syncytial Virus (RSV) Immunization (Adult) (1 - 1-dose 75+ series) 2021 Influenza Immunization (#1) 2024 02/04/2020 SARS-COV-2 Immunization (3 - season) 2024 02/10/2021, 06/08/2020 Zoster Immunization Completed 04/02/2020, 01/24/2020 Hepatitis B Immunization Aged Out No longer eligible based on patient's age to complete this topic Human Papillomavirus (HPV) Immunization Aged Out No longer eligible b ased on patient's age to complete this topic Meningococcal Immunization (ACWY) Aged Out No longer eligible b ased on patient's age to complete this topic Rotavirus Immunization Aged Out No lo nger eligible based on patient's age to complete this topic
--- OUTSIDE RECORDS SUMMARY | 2025-02-06 12:21 | XMS_ITS | Clinical Summary ---
Author Organization [facility] Address [address] [place] [address] Care Team Providers Care Sign Erector Name Role Phone Jose Miguel Stewart MD [...] Smokeless Tobacco: Never Tobacco Cessation:Counseling Given: No [facility] Utilities Answer Date Recorded In the past 12 months has th e electric, gas, oil, or water company threatened to shut off services in your home? No 06/12/2024 Social Connection and Isolation Panel Answer Date Recorded In a typical week, how many times do you talk on the phone with family, friends, or neighbors? More than three times a week 06/12/2024 How often do you get togethe r with friends or relatives? More than three times a week 06/12/2024 How often do you attend chur ch or scientologist services? Never 06/12/2024 Do you belong to any clubs o r organizations such as christianity groups, unions, fraternal or athletic groups, or [...] any time in the past 12 m [facility], were you homeless or living in a usp (including now)? No 06/12/2024 Personal Safety Answer Date Recorded Have you ever been in or are you currently in a harmful physical or emotional relationship or is someone making you feel afraid or unsafe? 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 Gender Identity Not on file Sexual Orientation [...] PCV) 01/23/2021 01/24/2020 Covid-19 Vaccine (3 - 2024-2 6 season) 2024 02/10/2021, 06/08/2020 Influenza Vaccine (#1) 2024 4, 01/31/2022, 03/12/2021, Additional history exists Fall Risk Assessment 06/13/2025 06/13/2024 Zoster Vaccine Completed 04/02/2020, 01/24/2020 Insurance Advance Directives For more information, please contact: [phone] * Full Code (Latest Code Status on File) Date Activated Date Inactivated Comments 06/12/2024 5:06 AM 06/13/2024 11:16 PM * Full Code Date Activated Date Inactivated Comments 06/12/2024 4:48 AM 06/12/2024 5:06 AM Care Teams Sign Erector Relationship Specialty Start Date End Date Jose Miguel Stewart MD [address] [place] [address] PCP - General Emergency Medicine 06/11/24
== END 2025-02-06 11:17 | disposition home or self-care (01) ==
LOC: ANHFOHIMG 11:16
PROVIDERS: PCP Emergency Medicine; Visit Provider Surgery
DX: R92.8 Other abnormal and inconclusive findings on diagnostic imaging of breast (principal); Z85.3 Personal history of malignant neoplasm of breast; C50.911 Malignant neoplasm of unspecified site of right female breast; Z90.13 Acquired absence of bilateral breasts and nipples
CPT/HCPCS: 76642